=== PATIENT | male | born 1990 | race Hispanic/Latino ===

== ENCOUNTER 2022-11-02 10:23 | Emergency (ER) | payer BC, OTHER ==
--- OUTSIDE RECORDS SUMMARY | 2022-11-02 10:47 | XMS REPORT | Continuity of Care Document ---
:1990 Author Organization [facility] Address [address] [place] [place] [address] Care Team Providers Name Role Phone Claudio Castillo MD Primary Care Physician SALEEM DONALD Attending Clinician Unavailable Harriett Fan Attending Clinician Unavailable Nadeen Goldman MD Attending Clinician Saleem Donald MD Attending Clinician Unavailable NADEEN GOLDMAN Attending Clinician Unavailable Patti Benitez RN Attending Clinician Unavailable Rossana Palmer Attending Clinician Unavailable [email or web address]In Attending Clinician Unavailable Mary Oates Attending Clinician Unavailable Roxane Colby RN Attending Clinician Unavailable Saleem Donald MD Attending Clinician Marisabel Garcia Attending Clinician Unavailable PRINCESS BECKWITH Attending Clinician Unavailable PRINCESS BECKWITH Attending Clinician Unavailable Princess Beckwith MD Attending Clinician Luis E Harrison MD Attending Clinician Reynaldo PACK, Jeremiah Martini Attending Clinician Ayanna PYLE, Rosi Attending Clinician Unavailable Saurabh PYLE, Anabella Attending Clinician Unavailable Francisco Javier PYLE, Priscilla Attending Clinician Unavailable Maximo CRUZ, Zulema Acevedo Attending Clinician ZULEMA MARSH Attending Clinician Unavailable Taniya PYLE, Niharika Attending Clinician Unavailable Cecilio PYLE, Sangeeta Reyes Attending Clinician Unavailable Angie PYLE, Mo Wilson Attending Clinician Unavailable Natalie Reeder MA Attending Clinician Unavailable Lapin_S Attending Clinician Unavailable Marisela FOLEY, Jeremiah Lackey Attending Clinician Yenifer Bustillos Attending Clinician Unavailable KWASI SWAN Attending Clinician Unavailable SHA ALFONSO Attending Clinician Unavailable TAYLOR SHAH Attending Clinician Unavailable SALEEM DONALD Admitting Clinician Unavailable [email or web address]In Admitting Clinician Unavailable PRINCESS BECKWITH Admitting Clinician Unavailable Lapin_S Admitting Clinician Unavailable Payers Payer Name Policy Type Policy Number Effective Date Expiration Date S cash AETNA HMO POS QPOS [id number] 2012 2018 00:00:00 00:00:00 [facility] [id number] 2014 PLAN 00:00:00 BCBS PPO POS EPO [id number] 2020 CHOICE 00:00:00 COVID VACCINE [id number] 2020-11-02 ADMIN / TESTING 00:00:00 [place] [id number] 2021-10-01 [place] (PPO) 00:00:00 OUT OF STATE BCBS [id number] - PPO - BCBS COMMUNITY PLAN [id number] 2015-10-01 [facility] 00:00:00 CVCP-BCBS [id number] GENERIC PPO - [id number] 2020-11-02 GENERIC PAYOR 00:00:00 OPEN ACCESS [id number] 2012-01-30 2018 HMO/POS/EPO/PPO - 00:00:00 00:00:00 AETNA STAR - AMERIGROUP [id number] [place] [id number] 2021-10-01 (PPO) 00:00:00 [place] [id number] 2020-07-08 00:00:00 Problems Condition Condition Condition Status Onset Resolution Last Treating Co mments Source Name Details Category Date Date Treatment Clinician Date History of History of Problem Active 2021-10 [facility] surgically Surgically 0-11 Me dical corrected 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 Active [facility] orthotopic orthotopic 05-19 [facility] heart heart 00:00: Medical transplant transplant 00 Ce nter Transplant Transplant Disease Active [facility] ed heart ed heart 01-02 [facility] Medical 00 Blain Gilbert Gilbert Disease Active 2020-[address] [facility] syndrome syndrome 0 [facility] 00:[facility]: Medical 00 Blain Kidney Kidney Problem Active [facility] 06-02 [facility] 00:00: Urology 00 Ureteric Ureteric Problem Active [place] [facility] 06-02 [facility] 00:00: Urology 00 Transplant Transplant Problem Active [place] [facility] of 06[facility]02 [facility] heart Heart 00:00: Urology 00 Hyperbilir Hyperbilir Disease Active [facility] ubinemia ubinemia 10-22 [facility] 00:00: Medical 00 [place] Abnormal Abnormal Disease Active [facility] liver liver 05-08 [facility] enzymes enzymes 00:00: Medical 00 [place]ain Moderate Moderate Disease Active [facility] protein-ca protein-ca 05-08 [facility] vida mcpherson 00:00: Medical malnutriti malnutriti 00 Ce nter on on Immunity Immunity Disease [facility] status status 05[facility] testing testing 00:00: Medical 00 Blain Heart Heart Disease Active 2017-[address] [facility] transplant transplant 2 [facility] status status 00:00: Medical 00 Blain Multiple Multiple Disease Active [facility] morales 3-05 [facility] 00:00: of 00 Medicin e Sinusitis, Sinusitis, Disease Active 2016-10 [facility] chronic chronic 1-07 College 00:00: of 00 Medicin e S/P S/P Disease Active 2016-10 [facility] orthotopic orthotopic 1-07 Co llege heart heart 00:00: of transplant transplant 00 Me dicin e Heart Heart Disease Active [facility] transplant transplant 4-25 [facility] complicati complicati 00:00: Me dical on on 00 Center Complicati Complicati Disease Active [facility] ons, ons, 3-10 [facility] heart, heart, 00:00: Medical transplant transplant 00 Ce nter H/O heart H/O heart Disease Active 2015-[address] [facility] transplant transplant 2-29 [facility] 00:00: Medical 00 Center Pneumothor Pneumothor Disease Active 2015-[address] ax ax 2-12 [facility] 00[facility] Medical 00 Center Acute Acute Disease Active 2015-[address] [facility] pulmonary pulmonary 2- [facility] insufficie insufficie 00:00: Ma dical ncy ncy 00 Center following following thoracic thoracic surgery surgery Heart Heart Disease Active 2015-[address] [facility] transplant transplant 2- [facility] , , 00:00: Medical orthotopic orthotopic 00 Ce nter , status , status Metabolic Metabolic Disease Active 2015-[address] [facility] acidosis acidosis 2-02 [facility] with with 00:00: Medical increased increased 00 Cent er anion gap anion gap and and accumulati accumulati on of on of organic organic acids acids Hypotensio Hypotensio Disease Active 2015-[address] n n 1-09 [facility] 00:[facility]: Medical 00 Center Atrial Atrial Disease Active 2015-[address] [facility] [address] fibrillati fibrillati 1-09 [facility] on with on with 00:00: Medical RVR RVR 00 Center Hypertroph Hypertroph Disease Active 2015-[address] ic ic 0-12 [facility] cardiomyop cardiomyop 00:00: Ma dical athy athy 00 Center Deonte-Park Deonte-Park Disease Active 2015-[address] inson-Whit inson-Whit 0-12 [facility] e (WPW) e (WPW) 00:00: Medical syndrome syndrome 00 Center Chronic Chronic Disease Active 2015-[address] [facility] combined combined 0-12 [facility] systolic systolic 00:00: Medica l (congestiv (congestiv 00 Ce nter e) and e) and diastolic diastolic (congestiv (congestiv e) heart e) heart failure failure Skin Skin Disease Active [facility] infection infection 9- [facility] 00:00: Medical 00 Center Danon Danon Disease Active [facility] disease disease 06-01 [facility] 00:[facility]: Medical 00 Center Myopathy Myopathy Disease [facility] associated associated 06-01 [facility] with Danon with Danon 00:00: Me dical disease disease 00 Center CHF CHF Disease Active [facility] (congestiv (congestiv 01-05 Co llege e heart e heart 00:00: of failure) failure) 00 Medici n (HCCode) (HCCode) e Danon Danon Disease Active [facility] disease disease 01-05 College (HCCode) (HCCode) 00:00: of 00 Medicin e Danon Danon Disease Active Last [facility] disease in disease in 12-30 Assessmen Aura male male 00:00: t & Plan: Medical 00 Formattin Center g of this note might be different from the original. 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 Continue follow up with genetics. We will obtain records from Dr. Tran office. AICD AICD Disease Active [facility] (automatic (automatic 3-30 [facility] cardiovert cardiovert 00:00: Me dical er/defibri er/defibri 00 Ce nter llator) llator) present - present - Medtronic Medtronic Chronic Chronic Disease Active [facility] systolic systolic 6-11 [facility] heart heart 00:00: Medical failure failure 00 Center Seizure Seizure Disease Active [facility] 7-22 [facility] 00:[facility]: Medical 00 Center Intellectu Intellectu Disease Active [facility] al al 9-20 [facility] disability disability 00:00: Me dical 00 Center Childhood Childhood Disease Active [facility] failure to failure to 2-27 [facility] gain gain 00:00: Medical weight weight 00 Center Left Left Disease Active [facility] ventricula ventricula [facility] r r Medical hypertroph hypertroph Ce nter y y Left Left Disease Active [facility] ventricula ventricula [facility] r r Medical non-compac non-compac Ce nter tion tion cardiomyop cardiomyop athy athy Allergies, Adverse Reactions, Alerts Allergy Allergy Status Severity Reaction(s) Onset Inactive Treating Comm ents Source Name Type Date Date Clinician NO KNOWN Allergy Active [facility] ALLERGIE 3-23 [facility] S 00:00: Medical 00 Center NO KNOWN Allergy Active [facility] DRUG 3-23 [facility] ALLERGIE 00:00: Medical S 00 Center Social History Social Habit Start Date Stop Date Quantity Comments Source Alcohol intake 2022-10-26 2022-10-[address] [facility] Hannah es 00:00:00 00:00:00 non-drinker of Medical nter alcohol (finding) History [facility] 2022-04-24 2022-04-24 7 [facility] Physical Activity 00:00:00 00:00:00 of Medi cine DPW History [facility] 2022-04-24 2022-04-24 98 [facility] Physical Activity 00:00:00 00:00:00 of Medi cine MPS Tobacco use and 2014-07-30 2014-07-[address] [facility] exposure 00:00:00 00:00:00 Medical Center Sex Assigned At [address] [facility] 00:00:00 00:00:00 Medical Center Smoking Status Start Date Stop Date Source Tobacco smoking consumption unknown [facility] Never smoker [facility] Medications Ordered Filled Start Stop Current Ordering Indication Dosage Frequency Signature Comments Components Source Medication Medication Date Date Medication? Clinician (SIG) Name Name ivabradine Yes 5mg Q.5D Take 1 [facility] (CORLANOR) 10-26 tablet (5 [facility] 5 mg Tab 00:00: mg total) Medi halima tablet 00 by mouth 2 Center (two) times daily. aspirin 81 2023- Yes 81mg QD Take [address] [facility] MG chewable 10-26 tablet (81 L ukes tablet 00:00: 23:59 mg total) Medic al 00 :00 by mouth Center daily. ezetimibe 2023- Yes 10mg QD Take 1 [facility] (Zetia) 10 10-26 tablet (10 [facility] mg tablet 00:00: 23:59 mg total) Me dical 00 :00 by mouth Center daily. metoprolol 2021-10- Yes 25mg QD Take [address] [facility] succinate 1-15 11-15 tablet (25 [facility] (Toprol XL) 00:00: 23:59 mg total) Medical 25 MG 24 hr 00 :00 by mouth Cent er tablet daily. ketoconazol 2021-10 Yes [id number] 3 (three) [facility] e (NIZORAL) 10-01 [id number] times a [facility] 2 % shampoo 00:00: 3W week Medica l 00 MON/SUN/ Center I. LORazepam 2021-10- No .5mg Take 1 [facility] (Ativan) 10-0111 tablet [facility] 0.5 MG 00:00: 23:59 (0.5 mg Medical tablet 00 :00 total) by Center mouth every 6 (six) hours as needed for Anxiety for up to 10 days. Max Daily Amount: 2 mg promethazin 2021-10 Yes 5mL Take [address] e-dextromet 0-11 by mouth Luke s horphan 00:00: every 4 Medical (PROMETHAZI 00 (four) Center NE-DM) hours. 6.25-15 mg/5 mL syrup dexAMETHaso 2021-10 No Take by I [facility] ne 0-11 10-26 mouth. [facility] (DECADRON) 00:00: 00:00 Medica l 4 MG tablet 00 :00 [place] Mycophenola Yes 180mg Take 180 [facility] Sodium 9-20 mg by [place] (MYFORTIC 13:23: mouth. of OR) 51 Medicin e Multiple Yes Take by [facility] Vitamin 9-20 mouth. [place] (THERAGRAN 13:23: of OR) 51 Medicin e Sulfamethox Yes Take by [facility] azole-Trime 9-20 mouth. Colleg e thoprim 13:23: of (BACTRIM 51 Medicin OR) e tacrolimus Yes Take by [facility] or (PROGRAF) 1 9-20 mouth College MG capsule 13:23: daily. of 51 Medicin e oseltamivir Yes 75mg Take 75 mg [facility] (TAMIFLU) 9-20 by mouth Colleg e 75 MG 13:23: two times of capsule 51 daily. Medicin e mINOCYCLine 2021- No 100mg Take [address] (MINOCIN,DY 8-20 08-23 capsule [facility] NACIN) 100 00:00: 23:59 (100 mg Med ical MG capsule 00 :00 total) by Cent er mouth every 12 (twelve) hours for 3 days. mINOCYCLine 2021- No 100mg Take [address] (MINOCIN,DY 8-20 08-19 capsule [facility] NACIN) 100 00:00: 00:00 (100 mg Med ical MG capsule 00 :00 total) by Cent er mouth every 12 (twelve) hours for 3 days. aspirin 81 2021- No 81mg QD Take [address] [facility] MG chewable 815 by mouth [facility] tablet 10:52: 00:00 daily. Medical 53 :00 Center tacrolimus Yes Take by [facility] or (PROGRAF) 1 04-27 mouth College MG capsule 11:33: daily. of 59 Medicin e Mycophenola Yes 180mg Take 180 [facility] Sodium 7- mg by [place] (MYFORTIC 11:32: mouth. of OR) 38 Medicin e Multiple Yes Take by [facility] Vitamin - mouth. [place] (THERAGRAN 11:32: of OR) 38 Medicin e Sulfamethox Yes Take by [facility] azole-Trime 04-27 mouth. Colleg e thoprim 11:32: of (BACTRIM 38 Medicin OR) e oseltamivir Yes 75mg Take 75 mg [facility] (TAMIFLU) 04-27 by mouth Colleg e 75 MG 11:32: two times of capsule 38 daily. Medicin e Pseudoephed 2021- No Take by Malcolm suarez rine-Guaife 04-27 mouth. Colle ge nesin 11:32: 00:00 of (MUCINEX D 32 :00 Medicin OR) e ceFEPIme 2021- No 1g Inject 1 g [facility] (MAXIPIME) 04-27 into the Ju ege 1 G 11:31: 00:00 vein every of injection 52 :00 12 hours. Medic in e ASPIRIN 81 2021- No Take by [facility] OR 04-27 mouth. College 11:31: 00:00 of 46 :00 Medicin e diltiazem Yes 180mg Take 180 [place] [facility] (CARDIZEM 7-21 mg by [place] CD) 180 MG 00:00: mouth of ER capsule 00 daily. Medicin e diltiazem Yes 180mg Take 180 [place] [facility] (CARDIZEM 7-21 mg by [facility]) 180 MG 00:00: mouth of ER capsule 00 daily. Medicin e ENTRESTO Yes TAKE 1 [facility] 24-26 MG 7-15 TABLET BY Colleg e TABS 00:00: MOUTH of 00 TWICE A Medicin DAY e ENTRESTO Yes TAKE 1 [facility] 24-26 MG 7-15 TABLET BY Colleg e TABS 00:00: MOUTH of 00 TWICE A Medicin DAY e sacubitriL- 2021- No 1{tbl} Q.5D Take [address] valsartan 7-15 11-15 tablet by Luis Alberto s (Entresto) 00:00: 00:00 mouth 2 Med ical 24-26 mg 00 :00 (two) Center Tab times daily. tacrolimus Yes 1mg am and [facility] (PROGRAF) 1 7-08 2mg at [facility] MG capsule 00:00: night. Medic al 00 Center dilTIAZem 2021- No 180mg QD Take [address] [facility] (CARDIZEM 4-22 11-15 capsule [facility] CD) 180 MG 00:00: 00:00 (180 mg Med ical 24 hr 00 :00 total) by Center capsule mouth daily. tacrolimus 2021- No 2mg am and [facility] (PROGRAF) 1 4-22 07-08 2mg at [facility] MG capsule 00:00: 00:00 night. Medi halima 00 :00 Center dilTIAZem 2021- No 120mg QD Take [address] [facility] (DILACOR 4-15 04-22 capsule [facility] XR) 120 MG 00:00: 00:00 (120 mg Med ical 24 hr 00 :00 total) by Center capsule mouth daily. diltiazem 2021- No 120mg QD Take [address] [facility] (CARDIZEM 4-15 04-15 tablet [facility] LA) 120 mg 00:00: 00:00 (120 mg Med ical 24 hr 00 :00 total) by [place] tablet mouth daily. mycophenola 2022- No 180mg Q.5D Take [address] te 11-18-18 tablet [facility] (MYFORTIC) 00:00: 23:59 (180 mg Med ical 180 MG EC 00 :00 total) by Cente r tablet mouth 2 (two) times daily. tacrolimus 2021- No 2mg am and [facility] (PROGRAF) 1 18 04-22 3mg at [facility] MG capsule 00:00: 16:09 night. Medi halima 00 :26 Center tretinoin 2020-10 Yes [id number] Start [place] [facility] (RETIN-A) 0-15 every College 0.025 % 00:00: other of cream 00 night and Medicin increase e to nightly use as tolerated. Apply moisturize r on top. Not to be used if . clindamycin 2020-10 Yes [id number] Apply to [facility] (CLEOCIN T) 0-15 affected Ju ege 1 % lotion 00:00: area of 00 daily. Medicin e ketoconazol 2020-10 Yes [id number] Apply to [facility] e (NIZORAL) 0-15 affected Ju ege 2 % shampoo 00:00: areas of 00 3x/week. Medicin Leave on e 5-10 minutes, then rinse off. clobetasol 2020-10 Yes [id number] Apply to [facility] (TEMOVATE) 0-15 scalp College 0.05 % 00:00: 2x/day x 3 of external 00 weeks as Medicin solution needed, e then weekends only. Avoid face, groin, armpits. tretinoin 2020-10 Yes [id number] Start [place] [facility] (RETIN-A) 0-15 every College 0.025 % 00:00: other of cream 00 night and Medicin increase e to nightly use as tolerated. Apply moisturize r on top. Not to be used if . ketoconazol 2020-10 Yes [id number] Apply to [facility] e (NIZORAL) 0-15 affected Ju ege 2 % shampoo 00:00: areas of 00 3x/week. Medicin Leave on e 5-10 minutes, then rinse off. tretinoin 2020-10 Yes [id number] Start [facility] (RETIN-A) 0-15 every College 0.025 % 00:00: other of cream 00 night and Medicin increase e to nightly use as tolerated. Apply moisturize r on top. Not to be used if . ketoconazol 2020-10 Yes [id number] Apply to [facility] e (NIZORAL) 0-15 affected Ju ege 2 % shampoo 00:00: areas of 00 3x/week. Medicin Leave on e 5-10 minutes, then rinse off. clindamycin 2020-10- No [id number] Apply to [facility] (CLEOCIN T) 0-15 -28 affected Col lege 1 % lotion 00:00: 00:00 area of 00 :00 daily. Medicin e clobetasol 2020-10- No [id number] Apply to [facility] (TEMOVATE) 0- scalp College 0.05 % 00:00: 00:00 2x/day x 3 of external 00 :00 weeks as Medicin solution needed, e then weekends only. Avoid face, groin, armpits. tretinoin 2020-10- No as needed [facility] (RETIN-A) 0- . [facility] 0.025 % 00:00: 00:00 Medical cream 00 :00 Center clindamycin 2020-10- No Apply [facility] (CLEOCIN T) 0- topically [facility] 1 % lotion 00:00: 00:00 as needed M edical 00 :00 . Center ketoconazol 2020-10- No as needed [facility] e (NIZORAL) 0- . [facility] 2 % shampoo 00:00: 00:00 Medic al 00 :00 Center clobetasoL 2020-10- No Apply to [facility] (TEMOVATE) 0- scalp [facility] 0.05 % 00:00: 00:00 2x/day x 3 Medi halima external 00 :00 weeks as Center solution needed, then weekends only. Avoid face, groin, armpits. tacrolimus 2020-10- No 2mg am and [facility] (PROGRAF) 1 0-07 02-18 3mg at [facility] MG capsule 00:00: 00:00 night. Medi hlaima 00 :00 Center mycophenola 2021- No 180mg Q.5D Take [address] te 2-05 02-05 tablet [facility] (Myfortic) 00:00: 23:59 (180 mg Med ical 180 MG EC 00 :00 total) by Cente r tablet mouth 2 (two) times daily. influenza 2021- No .5mL [facility] vaccine 1-15 04-04 [facility] (PF) 08:00: 10:10 Medical 00 :26 Center (FLUAD HIGH DOSE) syringe 65 years and up alendronate 2021- No Take one [facility] (FOSAMAX) 5-08 11-15 tablet [facility] 70 MG 00:00: 00:00 70mg by Medical tablet 00 :00 mouth once Center a week. mycophenola 2021- No 180mg Q.5D Take [address] te 8-08 02-18 tablet [facility] (MYFORTIC) 00:00: 00:00 (180 mg Med ical 180 MG EC 00 :00 total) by Cente r tablet mouth 2 (two) times daily. ASPIRIN 81 2017-0 Yes Take by [facility] or OR 3-05 mouth. [place] 10:07: of 05 Medicin e Pseudoephed 2017-0 Yes Take by [facility] rine-Guaife 3-05 mouth. [place] nesin 10:07: of (MUCINEX D 05 Medicin OR) e Multiple 0 Yes Take by [facility] Vitamin 3-05 mouth. [place] (THERAGRAN 10:07: of OR) 05 Medicin e Sulfamethox 2018-0 Yes Take by [facility] azole-Trime 3-05 mouth. [place] e thoprim 10:07: of (BACTRIM 05 Medicin OR) e Tacrolimus 2018-0 Yes Take by [facility] or (PROGRAF 3-05 mouth. [place] OR) 10:07: of 05 Medicin e Mycophenola 2018-0 Yes 180mg Take 180 [facility] Sodium 1-10 mg by [place] (MYFORTIC 15:02: mouth. of OR) 19 Medicin e ceFEPIme 2018-0 Yes 1g Inject 1 g [place] [facility] (MAXIPIME) 1-10 into the Colle ge 1 G 15:02: vein every of injection 19 12 hours. Medic in e oseltamivir Yes 75mg Take 75 mg [facility] (TAMIFLU) 1-10 by mouth Colleg e 75 MG 15:02: two times of capsule 18 daily. Medicin e amoxicillin Yes 1{tbl} Take 1 Tab [facility] -clavulanat 1-10 by mouth Ju ege e 00:00: two times of (AUGMENTIN) 00 daily. Medici n 875-125 MG e per tablet predniSONE Yes 4 po qd x [facility] (DELTASONE) 1-10 3 days, Colle ge 10 MG 00:00: then 3 po of tablet 00 qd x 3 Medicin days, then e 2 po qd x 3 days, then 1 po qd x 3 days fluticasone Yes 1{spray 1 [place] by [facility] (FLONASE) 1-10 } Each [place] 50 MCG/ACT 00:00: Nostril of nasal spray 00 route Medicin daily. e fluticasone Yes 1{spray 1 [place] by [facility] (FLONASE) 1-10 } Each [place] 50 MCG/ACT 00:00: Nostril of nasal spray 00 route Medicin daily. e amoxicillin Yes 1{tbl} Take 1 Tab [facility] -clavulanat 1-10 by mouth Ju ege e 00:00: two times of (AUGMENTIN) 00 daily. Medici n 875-125 MG e per tablet amoxicillin Yes 1{tbl} Take 1 Tab [facility] -clavulanat 1-10 by mouth Ju ege e 00:00: two times of (AUGMENTIN) 00 daily. Medici n 875-125 MG e per tablet predniSONE 2- No 4 po qd x [facility] (DELTASONE) 10-10 3 days, Ju ege 10 MG 00:00: 00:00 then 3 po of tablet 00 :00 qd x 3 Medicin days, then e 2 po qd x 3 days, then 1 po qd x 3 days fluticasone 2021- No 1{spray 1 [place] by [facility] (FLONASE) 10-10 } Each [place] 50 MCG/ACT 00:00: 00:00 Nostril of nasal spray 00 :00 route Medicin daily. e fluticasone 2021- No 1{spray 1 [place] by [facility] (FLONASE) 10-10 } Each College 50 MCG/ACT 00:00: 00:00 Nostril of nasal spray 00 :00 route Medicin daily. e dexamethaso dexamethaso No dexamethas [facility] ne 4 mg ne 4 mg one 4 mg Medic al tablet Take tablet Take tablet 2 tablets 2 tablets Take 2 on first on first tablets on day then 1 day then 1 first day tablet tablet then 1 daily daily tablet daily Ent[facility] 24 Entresto 24 No 1 Q1D Entresto [facility] mg-26 mg mg-26 mg 24 mg-26 Med ical tablet Take tablet Take mg tablet 1 tablet 1 tablet Take 1 every day every day tablet by oral by oral every day route. route. by oral route. promethazin promethazin No 5mL Q4H promethazi [facility] e-DM 6.25 e-DM 6.25 ne-DM 6.25 Medical mg-15 mg/5 mg-15 mg/5 mg-15 mg/5 mL oral mL oral mL oral syrup Take syrup Take syrup Take 5 mL every 5 mL every 5 mL every 4 hours by 4 hours by 4 hours by oral route. oral route. oral route. tacrolimus tacrolimus No tacrolimus [facility] Medical azithromyci azithromyci No azithromyc [facility] n 250 mg n 250 mg in 250 mg Me dical tablet TAKE tablet TAKE tablet 2 TABLETS 2 TABLETS TAKE 2 (500 MG) BY (500 MG) BY TABLETS ORAL ROUTE ORAL ROUTE (500 MG) ONCE DAILY ONCE DAILY BY ORAL FOR 1 DAY FOR 1 DAY ROUTE ONCE THEN 1 THEN 1 DAILY FOR TABLET (250 TABLET (250 1 DAY THEN MG) BY ORAL MG) BY ORAL 1 TABLET ROUTE ONCE ROUTE ONCE (250 MG) DAILY FOR 4 DAILY FOR 4 BY ORAL DAYS DAYS ROUTE ONCE DAILY FOR 4 DAYS fluticasone fluticasone No 1spray( Q1D fluticason [facility] propionate propionate s) e Med ical 50 50 propionate mcg/actuati mcg/actuati 50 on nasal on nasal mcg/actuat spray,suspe spray,suspe ion nasal nsion [place] nsion [place] spray,susp 1 spray 1 spray ension every day every day [place] 1 by by spray intranasal intranasal every day route. route. by intranasal route. tacrolimus tacrolimus No tacrolimus [place] 1 mg 1 mg 1 mg [facility] capsule, capsule, capsule, Uro logy immediate-r immediate-r immediate- elease elease release albuterol albuterol No albuterol [place] sulfate HFA sulfate HFA sulfate [facility] 90 90 HFA 90 Urology mcg/actuati mcg/actuati mcg/actuat on aerosol on aerosol ion inhaler inhaler aerosol INHALE 1-2 INHALE 1-2 inhaler PUFFS EVERY PUFFS EVERY INHALE 1-2 6 HOURS 6 HOURS PUFFS NEEDED FOR NEEDED FOR EVERY 6 WHEEZING OR WHEEZING OR HOURS DIFFICULTY DIFFICULTY NEEDED FOR BREATHING BREATHING WHEEZING OR DIFFICULTY BREATHING metoprolol metoprolol No 1 Q1D metoprolol [facility] succinate succinate succinate Medical ER 25 mg ER 25 mg ER 25 mg tablet,exte tablet,exte tablet,ext nded nded ended release 24 release 24 release 24 hr Take 1 hr Take 1 hr Take 1 tablet tablet tablet every day every day every day by oral by oral by oral route. route. route. famotidine famotidine No famotidine [place] 20 mg 20 mg 20 mg [facility] tablet TAKE tablet TAKE tablet Urology 1 TABLET BY 1 TABLET BY TAKE 1 MOUTH EVERY MOUTH EVERY TABLET BY 12 HOURS 12 HOURS MOUTH FOR 14 DAYS FOR 14 DAYS EVERY 12 HOURS FOR 14 DAYS mycophenola mycophenola No 1 BID mycophenol [facility] te sodium te sodium ate sodium Medical 180 mg 180 mg 180 mg tablet,codi tablet,codi tablet,del yed release yed release ayed Take 1 Take 1 release tablet tablet Take 1 twice a day twice a day tablet by oral by oral twice a route. route. day by oral route. ivermectin ivermectin No ivermectin [place] 3 mg tablet 3 mg tablet 3 mg M etro TAKE 4 TAKE 4 tablet Urology TABLETS BY TABLETS BY TAKE 4 MOUTH ON MOUTH ON TABLETS BY DAYS 1, 3, DAYS 1, 3, MOUTH ON AND 5. AND 5. DAYS 1, 3, AND 5. ketoconazol ketoconazol No ketoconazo Dominguez e 2 % e 2 % le 2 % [facility] shampoo shampoo shampoo Urolog y APPLY TO APPLY TO APPLY TO AFFECTED AFFECTED AFFECTED AREAS AREAS AREAS 3X/WEEK. 3X/WEEK. 3X/WEEK. LEAVE ON LEAVE ON LEAVE ON 5-10 5-10 5-10 MINUTES, MINUTES, MINUTES, THEN RINSE THEN RINSE THEN RINSE OFF. OFF. OFF. montelukast montelukast No montelukas [place] 10 mg 10 mg t 10 mg [facility] tablet TAKE tablet TAKE tablet Urology 1 TABLET BY 1 TABLET BY TAKE 1 MOUTH EVERY MOUTH EVERY TABLET BY EVENING EVENING MOUTH EVERY EVENING promethazin promethazin No 5mL Q4H promethazi [facility] e-DM 6.25 e-DM 6.25 ne-DM 6.25 Medical mg-15 mg/5 mg-15 mg/5 mg-15 mg/5 mL oral mL oral mL oral syrup Take syrup Take syrup Take 5 mL every 5 mL every 5 mL every 4 hours by 4 hours by 4 hours by oral route. oral route. oral route. mycophenola mycophenola No mycophenol [place] te sodium te sodium ate sodium [facility] 180 mg 180 mg 180 mg Urology tablet,codi tablet,codi tablet,del yed release yed release ayed release tacrolimus tacrolimus No tacrolimus [facility] Medical sucralfate sucralfate No sucralfate [place] 1 gram 1 gram 1 gram [facility] tablet TAKE tablet TAKE tablet Urology 1 TABLET BY 1 TABLET BY TAKE 1 MOUTH FOUR MOUTH FOUR TABLET BY TIMES A DAY TIMES A DAY MOUTH FOUR 1 HOUR 1 HOUR TIMES A BEFORE BEFORE DAY 1 HOUR MEALS AND MEALS AND BEFORE AT BEDTIME. AT BEDTIME. MEALS AND AT BEDTIME. tacrolimus tacrolimus No tacrolimus [place] 1 mg 1 mg 1 mg [facility] capsule, capsule, capsule, Uro logy immediate-r immediate-r immediate- elease elease release tretinoin tretinoin No tretinoin [place] 0.025 % 0.025 % 0.025 % [facility] topical topical topical Urolog y cream START cream START cream EVERY OTHER EVERY OTHER START NIGHT AND NIGHT AND EVERY INCREASE TO INCREASE TO OTHER NIGHTLY USE NIGHTLY USE NIGHT AND INCREASE TOLERATED. TOLERATED. TO NIGHTLY APPLY APPLY USE MOISTURIZER MOISTURIZER TOLERATED. ON TOP ON TOP APPLY MOISTURIZE R ON TOP Immunizations Ordered Immunization Filled Immunization Date Status Commen ts Source Name Name COVID-19, mRNA, LNP-S, COVID-19, mRNA, 2020-11-20 Completed [facility] Medical PF, 30 mcg/0.3 mL dose LNP-S, PF, 30 00:00:00 (Kigo) mcg/0.3 mL dose (Pfizer-BioNTech) COVID-19, mRNA, LNP-S, COVID-19, mRNA, 2020-11-20 Completed [facility] PF, 30 mcg/0.3 mL dose LNP-S, PF, 30 00:00:00 (Pfizer-BioNTech) mcg/0.3 mL dose (Pfizer-BioNTech) Covid-19 Vaccine MRNA 2020-11-20 Completed [facility] (PF) 12yr+ 00:00:00 [facility] (Pfizer/BioNTech)(IMM6 ) COVID-19, mRNA, LNP-S, COVID-19, mRNA, 2020-11-20 Completed [facility] PF, 30 mcg/0.3 mL dose LNP-S, PF, 30 00:00:00 Urology (Pfizer-BioNTech) mcg/0.3 mL dose (Pfizer-BioNTech) COVID-19, mRNA, LNP-S, COVID-19, mRNA, 2020-11-10 Completed [facility] PF, 30 mcg/0.3 mL dose LNP-S, PF, 30 00:00:00 Urology mcg/0.3 mL dose COVID-19, mRNA, LNP-S, COVID-19, mRNA, 2020-11-02 Completed [facility] PF, 30 mcg/0.3 mL dose LNP-S, PF, 30 00:00:00 Urology (Pfizer-BioNTech) mcg/0.3 mL dose (Pfizer-BioNTech) Covid-19 Vaccine MRNA 2020-11-02 Completed [facility] (PF) 12yr+ 00:00:00 [facility] (Pfizer/BioNTech)(IMM6 ) COVID-19, mRNA, LNP-S, COVID-19, mRNA, 2020-11-02 Completed [facility] PF, 30 mcg/0.3 mL dose LNP-S, PF, 30 00:00:00 (Pfizer-BioNTech) mcg/0.3 mL dose (Pfizer-BioNTech) COVID-19, mRNA, LNP-S, COVID-19, mRNA, 2020-11-02 Completed [facility] PF, 30 mcg/0.3 mL dose LNP-S, PF, 30 00:00:00 (Pfizer-BioNTech) mcg/0.3 mL dose (tab [employer]broker-[employer]ass[employer]!) COVID-19, mRNA, LNP-S, COVID-19, mRNA, 2020-10-20 Completed [facility] PF, 30 mcg/0.3 mL dose LNP-S, PF, 30 00:00:00 Urology mcg/0.3 mL dose Covid-19 Vaccine MRNA 2020-10-[address] [facility] (PF) 12yr+ 00:00:00 Medical Center (Pfizer/BioNTech)(IMM6 ) influenza, injectable, influenza, 2020-07-01 Completed [facility] quadrivalent injectable, 00:00:00 Urology quadrivalent influenza, injectable, influenza, 2020-07-01 Completed [facility] quadrivalent injectable, 00:00:00 Urology quadrivalent INFLUENZA TRIVALENT 2019-09-16 [address] [facility] ADJUVANTED PF IM 00:00:00 [facility] Pneumococcal 2019-09-[address] [facility] Polysaccharide 00:00:00 Medical Ce nter (Pneumovax) Influenza High Dose 2018-09-13 Completed [facility] Preservative Free IM 00:00:00 [facility] ([id number]) Influenza High Dose 2017-07-12 Completed [facility] Preservative Free IM 00:00:00 [facility] ([id number]) Pneumococcal Conjugate 2017-02-[address] [facility] (Prevnar) 13-Valent 00:00:00 [facility] Influenza Three-TIV PF 2016-07-[address] [facility] 5+ YR 00:00:00 [facility] Pneumococcal 2014-09-[address] [facility] Polysaccharide 00:00:00 Medical Ce nter (Pneumovax) Influenza TIV (IM) 2014-07-[address] [facility] 00:00:00 [facility] Vital Signs Vital Name Observation Time Observation Value Comments Source HEIGHT 2020-11-10 09:42:00 175.3 cm WEIGHT 2020-11-10 09:42:00 51.12 kg HEIGHT 2022-10-26 10:22:00 177.2 cm WEIGHT 2022-10-26 10:22:00 54.522 kg HEIGHT 2022-10-26 10:22:00 177.2 cm WEIGHT 2022-10-26 10:22:00 54.522 kg HEIGHT 2022-10-26 10:22:00 177.2 cm WEIGHT 2022-10-26 10:22:00 54.522 kg BP Diastolic 2022-08-28 00:00:00 60 mm[Hg] [facility] Height 2022-08-28 00:00:00 69 [in_i] [facility] BMI (Body Mass Index) 2022-08-28 00:00:00 17.8 kg/m2 [facility] BP Systolic 2022-08-28 00:00:00 96 mm[Hg] [facility] Body Weight 2022-08-28 00:00:00 1924 [oz_av] [facility] WEIGHT 2022-08-15 09:48:00 54.84 kg WEIGHT 2022-08-15 09:48:00 54.84 kg WEIGHT 2022-08-15 09:48:00 54.84 kg BP Diastolic 2022-07-11 00:00:00 74 mm[Hg] [facility] Height 2022-07-11 00:00:00 69 [in_i] [facility] BMI (Body Mass Index) 2022-07-11 00:00:00 17 kg/m2 [facility] BP Systolic 2022-07-11 00:00:00 98 mm[Hg] [facility] Body Weight 2022-07-11 00:00:00 1840 [oz_av] [facility] Systolic blood 2022-06-20 18:30:00 76 mm[Hg] [facility] pressure Medicine Diastolic blood 2022-06-20 18:30:00 60 mm[Hg] [facility] pressure Medicine BMI 2022-06-20 18:23:00 16.98 kg/m2 [facility] Heart rate 2022-06-20 18:23:00 101 /min [facility] Body height 2022-06-20 18:23:00 175.3 cm [facility] Body weight 2022-06-20 18:23:00 52.164 kg [facility] HEIGHT 2022-05-19 06:37:00 175.3 cm WEIGHT 2022-05-19 06:37:00 51.801 kg HEIGHT 2022-05-04 15:35:00 175.3 cm WEIGHT 2022-05-04 15:35:00 52.617 kg HEIGHT 2022-05-19 06:37:00 175.3 cm WEIGHT 2022-05-19 06:37:00 51.801 kg HEIGHT 2022-05-04 15:35:00 175.3 cm WEIGHT 2022-05-04 15:35:00 52.617 kg HEIGHT 2022-05-19 06:37:00 175.3 cm WEIGHT 2022-05-19 06:37:00 51.801 kg HEIGHT 2022-05-04 15:35:00 175.3 cm WEIGHT 2022-05-04 15:35:00 52.617 kg HEIGHT 2022-05-15 10:42:00 175.3 cm WEIGHT 2022-05-15 10:42:00 52.254 kg HEIGHT 2022-05-15 10:42:00 175.3 cm WEIGHT 2022-05-15 10:42:00 52.254 kg HEIGHT 2022-05-15 10:42:00 175.3 cm WEIGHT 2022-05-15 10:42:00 52.254 kg Systolic blood 2022-04-27 16:36:00 90 mm[Hg] [facility] pressure Medicine Diastolic blood 2022-04-27 16:36:00 68 mm[Hg] [facility] pressure Medicine Heart rate 2022-04-27 16:29:00 102 /min [facility] Body height 2022-04-27 16:29:00 [facility] 2022-04-27 16:29:00 [facility].617 [facility] BMI 2022-04-27 16:29:00 17.13 kg/m2 [facility] WEIGHT 2022-04-07 08:52:00 53.797 kg WEIGHT 2022-04-07 08:52:00 53.797 kg WEIGHT 2022-04-07 08:52:00 53.797 kg WEIGHT 2022-03-10 11:34:00 52.345 kg WEIGHT 2022-03-10 11:34:00 52.345 kg WEIGHT 2022-03-10 11:34:00 52.345 kg HEIGHT 2022-01-20 10:45:00 175.3 cm WEIGHT 2022-01-20 10:45:00 53.751 kg HEIGHT 2022-01-20 10:45:00 175.3 cm WEIGHT 2022-01-20 10:45:00 53.751 kg HEIGHT 2022-01-20 10:45:00 175.3 cm WEIGHT 2022-01-20 10:45:00 53.751 kg HEIGHT 2022-01-02 09:36:00 175.3 cm WEIGHT 2022-01-02 09:36:00 52.617 kg HEIGHT 2022-01-02 09:36:00 175.3 cm WEIGHT 2022-01-02 09:36:00 52.617 kg HEIGHT 2022-01-02 09:36:00 175.3 cm WEIGHT 2022-01-02 09:36:00 52.617 kg HEIGHT 2021-12-30 11:00:00 175.3 cm WEIGHT 2021-12-30 11:00:00 53.524 kg HEIGHT 2021-12-30 11:00:00 175.3 cm WEIGHT 2021-12-30 11:00:00 53.524 kg HEIGHT 2021-12-30 11:00:00 175.3 cm WEIGHT 2021-12-30 11:00:00 53.524 kg Height 2021-12-08 00:00:00 69 [in_i] [facility] Urology BMI (Body Mass Index) 2021-12-08 00:00:00 16.8 kg/m2 [facility] Urology Body Weight 2021-12-08 00:00:00 114 [lb_av] [facility] Urology WEIGHT 2021-07-22 11:14:00 52.527 kg WEIGHT 2021-07-22 11:14:00 52.527 kg Systolic blood 2021-07-15 18:48:00 118 mm[Hg] [facility] pressure Medicine Diastolic blood 2021-07-15 18:48:00 82 mm[Hg] [facility] pressure Medicine Heart rate 2021-07-15 18:48:00 77 /min [facility] Body height 2021-07-15 18:48:00 175.3 cm [facility] Body weight 2021-07-15 18:48:00 51.71 kg [facility] BMI 2021-07-15 18:48:00 16.83 kg/m2 [facility] Height 2021-06-02 00:00:00 69 [in_i] [facility] Urolog BMI (Body Mass Index) 2021-06-02 00:00:00 17 kg/m2 [facility] Body Weight 2021-06-02 00:00:00 115 [facility]lb_av[facility] 2021-04-15 12:11:00 50.758 kg WEIGHT 2021-04-15 12:11:00 50.758 kg WEIGHT 2021-01-14 11:27:00 53.162 kg WEIGHT 2021-01-14 11:27:00 53.162 kg HEIGHT 2020-11-10 09:42:00 175.3 cm WEIGHT 2020-11-10 09:42:00 51.12 kg HEIGHT 2020-11-09 10:18:00 175.3 cm WEIGHT 2020-11-09 10:18:00 52.164 kg HEIGHT 2020-11-09 10:18:00 175.3 cm WEIGHT 2020-11-09 10:18:00 52.164 kg Systolic blood 2022-10-26 10:22:00 104 mm[Hg] [facility] Diastolic blood 2022-10-26 10:22:00 72 mm[Hg] [facility] Heart rate 2022-10-26 10:22:00 113 /min [facility] Body temperature 2022-10-26 10:22:00 36.61 Jackelyn [facility] Respiratory rate 2022-10-26 10:22:00 14 /min [facility] Body height 2022-10-26 10:22:00 177.2 cm actual [facility] Body weight 2022-10-26 10:22:00 54.522 kg [facility] BMI 2022-10-26 10:22:00 17.37 kg/m2 [facility] Oxygen saturation in 2022-10-26 10:22:00 99 /min [facility] Arterial blood by Medical Ce nter Pulse oximetry Procedures Procedure Date / Time Performing Clinician Source Performed AB SPECIFICITY CLASS II 2022-10-26 12:15:00 Nadeen Goldman [facility] HEPATIC FUNCTION PANEL 2022-10-26 12:15:00 Nadeen Goldman [facility] AB SPECIFICITY CLASS I 2022-10-26 12:15:00 Nadeen Goldman [facility] FLOW PRA CLASS I WITH 2022-10-26 12:15:00 Nadeen Goldman [facility] REFLEX TO ANTIBODY Medical Cente r SPECIFICITY FLOW PRA CLASS II WITH 2022-10-26 12:15:00 Nadeen Goldmanvanda [facility] REFLEX TO ANTIBODY Medical Cente r SPECIFICITY AB DONOR SPECIFIC, DSA 2022-10-26 12:15:00 Nadeen Goldman [facility] ECG 12-LEAD 2022-10-26 12:11:44 Nadeen Goldman [facility] ECG 12-LEAD 2022-10-26 12:11:44 Unknown, Hl7 Doctor [facility] CBC W/PLT COUNT & AUTO 2022-10-26 10:58:00 Saleem Donald [facility] BASIC METABOLIC PANEL 2022-10-26 10:58:00 Kevin Harrington [facility] TACROLIMUS LEVEL 2022-10-26 10:58:00 Saleem Donald [facility] B-TYPE NATRIURETIC FACTOR 2022-10-26 10:58:00 Saleem Donald [facility] (BNP) [facility] CBC W/PLT COUNT & AUTO 2022-10-26 10:58:00 Saleem Donald [facility] CBC W/PLT COUNT & AUTO 2022-08-15 09:54:00 Saleem Donald [facility] TACROLIMUS LEVEL 2022-08-15 09:54:00 Saleem Donald [facility] COMPREHENSIVE METABOLIC 2022-08-15 09:54:00 Saleem Donald [facility] CBC W/PLT COUNT & AUTO 2022-08-15 09:54:00 Saleem Donald [facility] MR CARDIAC WITHOUT & WITH 2022-08-04 11:59:00 Saleem Donald CH, I [facility] IV CONTRAST Medical Center XR CHEST 2 VIEWS 2022-07-25 10:21:00 Jacek Navarro [facility] ELECTROCARDIOGRAM COMPLETE 2022-06-20 13:24:00 Wolfgang [facility] ECG 12-LEAD 2022-05-19 12:10:17 [facility] ECG 12-LEAD 2022-05-19 12:10:17 Unknown, Hl7 Doctor [facility] PREPARE RBC 2022-05-19 10:13:00 Matt [facility] EXTRACTION, ELECTRODE LEAD, 2022-05-19 07:34:00 Matt [facility] REMOVAL, PULSE GENERATOR, 2022-05-19 07:34:00 Princess Beckwith [facility] TYPE AND SCREEN, AUTOMATED 2022-05-19 07:00:00 [facility] POCT-GLUCOSE METER 2022-05-19 06:01:00 Matt [facility] AB SPECIFICITY CLASS I 2022-05-15 11:05:00 Saleem Donald [facility] AB SPECIFICITY CLASS II 2022-05-15 11:05:00 Saleem Donald [facility] BASIC METABOLIC PANEL 2022-05-15 11:05:00 Matt [facility] CBC W/PLT COUNT & AUTO 2022-05-15 11:05:00 Matt [facility] PROTHROMBIN TIME/INR 2022-05-15 11:05:00 Matt [facility] FLOW PRA CLASS I WITH 2022-05-15 11:05:00 Saleem Donald [facility] REFLEX TO ANTIBODY Medical Cente r SPECIFICITY FLOW PRA CLASS II WITH 2022-05-15 11:05:00 Donald, Saleem Mcdermott [facility] REFLEX TO ANTIBODY Medical Cente r SPECIFICITY AB DONOR SPECIFIC, DSA 2022-05-15 11:05:00 Donald, Saleem Mcdermott [facility] CBC W/PLT COUNT & AUTO 2022-05-15 11:05:00 Treasure [facility] COVID ANTIGEN 2022-05-15 10:56:00 Treasure [facility] ELECTROCARDIOGRAM COMPLETE 2022-04-27 11:36:00 B [facility] CBC W/PLT COUNT & AUTO 2022-04-21 10:36:00 Donald, Saleem Mcdermott [facility] TACROLIMUS LEVEL 2022-04-21 10:36:00 Donald, Saleem Mcdermott [facility] COMPREHENSIVE METABOLIC 2022-04-21 10:36:00 Donald, Saleem Mcdermott [facility] MAGNESIUM 2022-04-21 10:36:00 Donald, Saleem Mcdermott [facility] CBC W/PLT COUNT & AUTO 2022-04-21 10:36:00 Donald, Asleemsisi Mcdermott [facility] 2D ECHO W/ DOPPLER 2022-04-07 09:46:52 Carolin, Saleem Mcdermott [facility] (CW/PW/COLOR) [facility] VENOUS DOPPLER LEGS 2022-04-07 09:23:00 Donald, Saleem Mcdermott [facility] CBC W/PLT COUNT & AUTO 2022-04-07 08:51:00 Donald, Saleem Mcdermott [facility] BASIC METABOLIC PANEL 2022-04-07 08:51:00 Donald, Saleem Mcdermott [facility] TACROLIMUS LEVEL 2022-04-07 08:51:00 Donald, [facility] Sharron [facility] CBC W/PLT COUNT & AUTO 2022-04-07 08:51:00 Donald, [facility] Sharron [facility] ECG 12-LEAD 2022-03-10 11:56:51 Zulema Marsh [facility] ECG 12-LEAD 2022-03-10 11:56:51 Unknown, Hl7 [facility] CBC W/PLT COUNT & AUTO 2022-03-10 11:34:00 Donald, Saleem Mcdermott [facility] BASIC METABOLIC PANEL 2022-03-10 11:34:00 Donald, Saleem Mcdermott [facility] TACROLIMUS LEVEL 2022-03-10 11:34:00 Donald, Saleem Mcdermott [facility] CBC W/PLT COUNT & AUTO 2022-03-10 11:34:00 Donald, Saleem Mcdermott [facility] TACROLIMUS 2022-02-03 10:23:00 Donald, Saleem Mcdermott [facility] COMPREHENSIVE METABOLIC 2022-02-03 10:22:00 Donald, Saleem Mcdermott [facility] CBC W/PLT COUNT & AUTO 2022-02-03 10:20:00 Donald, Saleem Mcdermott [facility] ECG 12-LEAD 2022-01-20 14:31:38 Unknown, Hl7 [facility] ECG 12-LEAD 2022-01-20 14:31:38 Unknown, Hl7 [facility] CBC W/PLT COUNT & AUTO 2022-01-20 10:39:00 Donald, Saleem Mcdermott [facility] TACROLIMUS LEVEL 2022-01-20 10:39:00 Donald, Saleem Mcdermott [facility] COMPREHENSIVE METABOLIC 2022-01-20 10:39:00 Donald, Saleem Mcdermott [facility] CBC W/PLT COUNT & AUTO 2022-01-20 10:39:00 Donald, Saleem Mcdermott [facility] R & L CATH / CORONARY 2022-01-02 14:13:00 Donald, Saleem Mcdermott [facility] ANGIOS / PCI [facility] BIOPSY, ENDOMYOCARDIUM 2022-01-02 14:13:00 Donald, Saleem Mcdermott [facility] TISSUE EXAM 2022-01-02 14:09:00 Donald, Saleem Mcdermott [facility] ECG 12-LEAD 2022-01-02 10:37:19 Unknown, Hl7 Doctor [facility] ECG 12-LEAD 2022-01-02 10:37:19 Unknown, Hl7 Doctor [facility] TACROLIMUS LEVEL 2022-01-02 10:19:00 Donald, Saleem Mcdermott [facility] CARDIAC CATH REPORT - SCAN 2022-01-02 00:00:00 Provider, [facility] SARS-COV2/RT-PCR ([facility] & 2021-12-30 14:14:00 Donald, Saleem Mcdermott [facility] REF LABS) [facility] CBC W/PLT COUNT & AUTO 2021-12-30 11:16:00 Donald, Saleem Mcdermott [facility] TACROLIMUS LEVEL 2021-12-30 11:16:00 Donald, Saleem Mcdermott [facility] COMPREHENSIVE METABOLIC 2021-12-30 11:16:00 Donald, Saleem Mcdermott [facility] CBC W/PLT COUNT & AUTO 2021-12-30 11:16:00 Donald, Saleem Mcdermott [facility] STRESS ECHO 2021-12-23 09:19:43 Donald, Saleem Mcdermott [facility] 2D ECHO W/ DOPPLER 2021-12-23 08:50:06 Donald, Saleem Mcdermott [facility] (CW/PW/COLOR) [facility] SARS-COV2/RT-PCR ([facility] & 2021-12-23 07:36:00 Donald, Saleem Mcdermott [facility] REF LABS) [facility] XR CHEST 2 VIEWS 2021-12-16 11:16:00 Donald, Saleem Mcdermott [facility] BASIC METABOLIC PANEL 2021-12-16 10:36:00 Donald, Saleem Mcdermott [facility] CBC W/PLT COUNT & AUTO 2021-12-16 10:36:00 Donald, Saleem Mcdermott [facility] LIPID PANEL 2021-12-16 10:36:00 Donald, Saleem Mcdermott [facility] HEPATIC FUNCTION PANEL 2021-12-16 10:36:00 Donald, Saleem P. [facility] TACROLIMUS LEVEL 2021-12-16 10:36:00 DonaldSaleem green Guero [facility] AB SPECIFICITY CLASS I 2021-12-16 10:36:00 [facility] AB SPECIFICITY CLASS II 2021-12-16 10:36:00 [facility] FLOW PRA CLASS I WITH 2021-12-16 10:36:00 [facility] REFLEX TO ANTIBODY Medical Cente r SPECIFICITY FLOW PRA CLASS II WITH 2021-12-16 10:36:00 Donald, Saleem Guero [facility] REFLEX TO ANTIBODY Medical Cente r SPECIFICITY AB DONOR SPECIFIC, DSA 2021-12-16 10:36:00 [facility] CBC W/PLT COUNT & AUTO 2021-12-16 10:36:00 Donald, [facility] XR KUB KIDNEY URETER 2021-12-08 19:32:00 Jeremiah Antonio [facility] BLADDER Plan of Care Planned Activity Planned Date Details Comments Source Future Scheduled 2057 PNEUMOCOCCAL VACCINE 0-[address] [facility] Test 00:00:00 YRS (4 - PPSV23 or PCV20) [facility] [code = PNEUMOCOCCAL VACCINE 0-64 YRS (4 - PPSV23 or PCV20)] Future Scheduled 2024-12-16 Lipid panel (procedure) [facility] Test 00:00:00 [code = 04887997] Medical Ce nter Future Scheduled 2023-10-[address] [facility] Test 00:00:00 Counseling and Screening [facility] (12+) [code = Tobacco Cessation Counseling and Screening (12+)] Future Scheduled 2022-10-[address] [facility] Test 00:00:00 (12+) [code = DEPRESSION [facility] SCREENING (12+)] Future Scheduled 2022-08-01 HEPATITIS B VACCINES (1 [facility] 00:09:17 of 3 - 3-dose series) Hospit al [code = HEPATITIS B VACCINES (1 of 3 - 3-dose series)] Future Scheduled 2022-08-01 Pneumococcal Vaccine: [facility] 00:09:17 Pediatrics (0 to 5 Years) Ho spital and At-Risk Patients (6 to 64 Years) (1 - PCV) [code = Pneumococcal Vaccine: Pediatrics (0 to 5 Years) and At-Risk Patients (6 to 64 Years) (1 - PCV)] Future Scheduled 2022-08-01 Hepatitis C screening [facility] 00:09:17 (procedure) [code = Hospital 795665141] Future Scheduled 2022-08-01 COVID-19 VACCINE (4 - [facility] 00:09:17 Booster) [code = COVID-19 Ho spital VACCINE (4 - Booster)] Future Scheduled 2022-08-01 INFLUENZA VACCINE [code = [facility] Test 00:09:17 INFLUENZA VACCINE] Hospital Future Scheduled 2022-06-20 ELECTROCARDIOGRAM [facility] Test 13:24:23 COMPLETE [code = 45338] Medi cine Future Scheduled 2022-06-20 Pneumococcal Combined (1 [facility] Test 13:23:34 - PCV) [code = Medicine Pneumococcal Combined (1 - PCV)] Future Scheduled 2022-06-20 TETANUS SHOT (ADULT) [facility] Test 13:23:34 [code = TETANUS SHOT Medicin e (ADULT)] Future Scheduled 2022-06-20 BMI FOLLOW UP PLAN [code [facility] Test 13:23:34 = BMI FOLLOW UP PLAN] Medici ne Future Scheduled 2022-06-20 Human immunodeficiency B [facility] of Test 13:23:34 virus screening Medicine (procedure) [code = 074931919] Future Scheduled 2022-06-20 FLU VACCINE > 6 MONTHS B [facility] Test 13:23:34 [code = FLU VACCINE > 6 Medi cine MONTHS] Future Scheduled 2022-06-01 INFLUENZA VACCINE (#1) [facility] 00:[facility]00 [code = INFLUENZA VACCINE Me dical Center (#1)] Future Scheduled 2022-04-27 ELECTROCARDIOGRAM [facility] Test 11:35:20 COMPLETE [code = 29908] Medi cine Future Scheduled 2022-04-27 Pneumococcal Combined (1 [facility] Test 11:31:10 - PCV) [code = Medicine Pneumococcal Combined (1 - PCV)] Future Scheduled 2022-04-27 TETANUS SHOT (ADULT) [facility] Test 11:31:10 [code = TETANUS SHOT Medicin e (ADULT)] Future Scheduled 2022-04-27 BMI FOLLOW UP PLAN [code [facility] Test 11:31:10 = BMI FOLLOW UP PLAN] Medici ne Future Scheduled 2022-04-27 Human immunodeficiency B [facility] Test 11:31:10 virus screening Medicine (procedure) [code = 809626975] Future Scheduled 2022-04-27 FLU VACCINE > 6 MONTHS B [facility] Test 11:31:10 [code = FLU VACCINE > 6 Medi cine MONTHS] Diagnostic Test 2021-12-08 urinalysis, dipstick [place] [facility] Pending 00:00:00 [code = urinalysis, Urology dipstick] Future Scheduled 2021-09-[address] [facility] 00:00:00 measurement (procedure) [facility] [code = 71492076] Future Scheduled 2021-07-15 TETANUS SHOT (ADULT) [facility] 14:04:54 [code = TETANUS SHOT Medicin e (ADULT)] Future Scheduled 2021-07-[address] [facility] 14:04:54 virus screening Medicine (procedure) [code = [id number]] Future Scheduled 2021-07-15 FLU VACCINE > 6 MONTHS B [facility] Test 14:04:54 [code = FLU VACCINE > 6 Medi cine MONTHS] Future Scheduled 2021-02-12 COVID-19 VACCINE (4 - [facility] Booster) [code = COVID-19 [facility] VACCINE (4 - Booster)] Future Scheduled 2011 DTAP/TDAP/TD VACCINES ([address] [facility] 00:00:00 - Tdap) [code = Medical Cent er DTAP/TDAP/TD VACCINES (1 - Tdap)] Future Scheduled 2002 DIABETIC EYE EXAM [code = [facility] 00:00:00 DIABETIC EYE EXAM] Medical C enter Future Scheduled 2002 Urine screening for [facility] 00:00:00 protein (procedure) [code Ma dical Center = [id number]] Future Appointment 2022-12-08 Jeremiah Antonio, [address] [facility] 00:00:00 [address]; , [place] [address] Encounters Start End Encounter Admission Attending Care Care Encounter Source Date/Time Date/Time Type Type Clinicians Facility Department ID 2021-07-09 Outpatient SALEEM DONALD [facility] Surgery [id number] [facility] 02:52:47 2023-08-21 2023-08-21 Outpatient NARA SLE SLE [id number] [facility] 00:00:00 00:00:00 2023-05-22 2023-05-22 Outpatient NARA SLE SLE [id number] [facility] 00:00:00 00:00:00 2023-02-20 2023-02-20 Outpatient NARA SLE SLE [id number] [facility] 00:00:00 00:00:00 2022-11-21 2022-11-21 Outpatient SALEEM [facility]A [facility] [id number] SLE 00:00:00 00:00:00 2022-10-31 2022-10-31 Abstract Meng [facility] [id number] [facility] [address] [facility] 00[facility]00 [facility] 2022-10-26 2022-10-26 Follow-Up Nadeen Goldman [facility] [id number] 09:00[facility] 09:30:[address] [facility] 2022-10-26 2022-10-26 Outpatient SALEEM [facility]A [facility] [id number] SLE 09:15:09 09:15:09 2022-10-26 2022-10-26 Telephone Patti Benitez [facility] [id number] [id number] [facility] 00[facility]00 [facility] 2022-10-26 2022-10-26 Orders [facility] [id number] 00:00:00 00:00:[address] [facility] 2022-10-25 2022-10-25 Telephone Spencer [facility] [id number] 00:[facility] 00[facility] 2022-10-25 2022-10-25 Telephone Spencer [facility] [id number] 00:00[facility]00 00:00:00 [facility] 2022-10-24 2022-10-24 Outpatient SALEEM SOSA SLE [id number] [facility] 00:00:00 00:00:00 2022-10-23 2022-10-23 Telephone Spencer [facility] [id number] 00:00[facility]00 00:00:00 [facility] 2022-10-11 2022-10-11 Telephone Patti Benitez [facility] [id number] [id number] [facility]00 00:00:00 [facility] 2022-08-28 2022-08-28 Outpatient GC_[facility]N_[facility] PRIV PRIV [id number] [facility] 00:00:[facility] 00:00:00 k-In [id number] Medica l 2022-08-28 2022-08-28 Shawna [facility]IV [facility] [id number] [facility] 00:00:00 00:00:00 [facility] [place]: [id number] GC_CPCN_[place] [address], Office* [place] [address] , Ph. 2022-08-18 2022-08-18 Documentat Patti Benitez [facility] [id number] [id number] 00:00[facility]00 00:00:00 [facility] 2022-08-15 2022-08-15 Follow-Up Saleem Donald [facility] [id number] [id number] 10:15:00 10:30:[address] [facility] 2022-08-15 2022-08-15 Outpatient SALEEM SOSA SLE SLE [id number] SLEH 09:35:07 09:35:07 2022-08-04 2022-08-04 Outpatient SALEEM SOSA SLEDori [facility]H [id number] [facility] 07:57:58 23:59:00 2022-08-04 2022-08-04 [facility] Saleem Donald [facility] [id number] [id number] 07:57:58 23:59:00 Encounter [facility] 2022-08-04 2022-08-04 Orders Иван [facility] [id number] 00:00:00 00:00:[address] [facility] 2022-08-04 2022-08-04 Orders Lasha [facility] [id number] 00:00:00 00:00:00 Only [facility] 2022-08-04 2022-08-04 Outside Saleem Donald [facility] [id number] 00:00[facility]00 00:00:00 [facility] 2022-08-01 2022-08-01 Orders Saleem Donald [facility] [id number] 00:00:00 00:00:00 Only [facility] 2022-07-28 2022-07-28 Outpatient EL SLE SLE [id number] [facility] 00:00:00 00:00:00 2022-07-26 2022-07-26 Outpatient GC_CPCN_Wal PRIV PRIV [id number] [facility] 00:00:00 00:00:00 k-In [id number] Medica l 2022-07-26 2022-07-26 Telephone Lasha [facility] [id number] 00:00:00 00:00:00 [facility] 2022-07-25 2022-07-25 [facility] Saleem Donald [facility] [id number] [id number] 07:30:00 23:59:00 Encounter [facility] 2022-07-25 2022-07-25 Outpatient SALEEM SOSA SLE SLEH [id number] [facility] 00:00:00 23:59:00 2022-07-25 2022-07-25 Outpatient SALEEM SOSA SLE SLE [id number] [facility] 00:00:00 00:00:00 2022-07-25 2022-07-25 Telephone Marisabel Garcia [facility] [id number] [facility] 00:00:00 [facility] 2022-07-25 2022-07-25 Abstract Marisabel Garcia [facility] [id number] [id number] 00:00[facility]00 00:00:00 [facility] 2022-07-24 2022-07-24 Telephone Lasha [facility] [id number] 00:00:00 00:00:00 [facility] 2022-07-11 2022-07-11 Out[facility] PRIV PRIV [id number] [facility] 00:00:00 00:00:00 k-In [id number] Medica l 2022-07-11 2022-07-11 Shawna [facility]IV [facility] 11 [facility] 00:00:00 00:00:00 Sandor [facility] [place]: [address] [facility] [facility], Office* [place] [address] , Ph. 2022-06-30 2022-06-30 Telephone Marisabel Garcia [facility] [id number] [id number] 00:00[facility]00 00:00:00 [facility] 2022-06-29 2022-06-29 Telephone Marisabel Garcia [facility] [id number] [id number] 00:00[facility]00 00:00:00 [facility] 2022-06-22 2022-06-22 Orders Lasha [facility] [id number] 00:00:00 00:00:00 Only [facility] 2022-06-21 2022-06-21 Orders Lasha [facility] [id number] 00:00:00 00:00:00 Only [facility] 2022-06-21 2022-06-21 Telephone Lasha [facility] [id number] 00:00:00 00:00:00 [facility] 2022-06-20 2022-06-20 Office TAB BECKWITH 1.2.840.[id number] [place] [address] 13:16:58 16:26:40 Visit PRINCESS AMBULATOR 350.1.13.21 College Y 0.2.7.2.686 of [id number] Medi annie 300 e 2022-05-19 2022-05-19 Outpatient BCM BCM [id number] [facility] 05:49:00 23:59:00 [facility] 2022-05-19 2022-05-19 Outpatient EL CHARY BECKWITH Surgery [id number] SLE 05:49:00 15:12:00 [facility] 2022-05-19 2022-05-19 [facility] [id number] 05:49:00 15:12:00 Encounter [facility] 2022-05-19 2022-05-19 [id number] 07:30:00 11:37:00 [facility] 2022-05-19 2022-05-19 Anesthesia Luis E Harrison [facility] [id number] 07:20:00 10:02:[address] Event Jeremiah Jacobs Suzanne [facility] 2022-05-19 2022-05-19 [id number] [facility] 00:00:00 05:48:00 [facility] 2022-05-19 2022-05-19 Orders [facility] [id number] 00:00:00 00:00:00 [facility] 2022-05-15 2022-05-15 Office Princess Beckwith [facility] [id number] 11:00:00 11:15:00 Visit Ayanna [facility] 2022-05-15 2022-05-15 Outpatient [facility] [id number] SLE 10:40:44 10:40:44 2022-05-10 2022-05-10 Telephone Saurabh [facility] [id number] 00:00:00 00:00:00 [facility] 2022-05-05 2022-05-05 Outpatient EL SLE SLE [id number] [facility]H 00:00:00 00:00:00 2022-05-04 2022-05-04 Outpatient EL SLEH SLE [id number] [facility] 15:49:30 23:59:00 2022-05-04 2022-05-04 [facility] [id number] 14:00:00 23:59:00 Encounter [facility] 2022-05-04 2022-05-04 Travel [facility] [id number] [facility]00 00:00:00 [facility] 2022-05-04 2022-05-04 Telephone Marisabel Garcia [facility] [id number] 00:00[facility]00 00:00:00 [facility] 2022-05-03 2022-05-03 Orders Lasha [facility] [id number] 00:00:00 00:00:00 Only [facility] 2022-05-02 2022-05-02 Orders Saurabh [facility] [id number] 00:00:00 00:00:00 Only [facility] 2022-04-27 2022-04-27 Office TAB BECKWITH 1.2.840.114 [id number] [facility] 11:26:13 14:17:53 Visit [facility]ESS AMB[facility]ATOR 350.1.13.21 College Y 0.2.7.2.686 of [id number] Medi annie 300 e 2022-04-24 2022-04-24 Outpatient EL SLEH SLEH [id number] [facility] 00:00:00 00:00:00 2022-04-21 2022-04-21 Orders Saleem Donald [facility] [id number] [facility] 10:30:00 10:45:[address] [facility] 2022-04-21 2022-04-21 Outpatient EL SLEH SLEH [id number] [facility]H 10:30:37 10:30:37 2022-04-21 2022-04-21 Telephone Lasha [facility] [id number] 00:00:00 00:00:00 [facility] 2022-04-18 2022-04-18 Documentcalvin Colby [facility] [id number] 00:00:00 00:00:00 ion [facility] 2022-04-14 2022-04-14 Yancy Wiley [facility] [id number] 00:00:00 00:00:00 [facility] 2022-04-13 2022-04-13 Abstract Marisabel Garcia [facility] [id number] [id number] 00:00[facility]00 00:00:00 [facility] 2022-04-11 2022-04-11 Telephone Saurabh [facility] [id number] 00:00:00 00:00:00 [facility] 2022-04-11 2022-04-11 Orders Saurabh [facility] [id number] 00:00:00 00:00:00 Only [facility] 2022-04-10 2022-04-10 [facility] [id number] 00:00:00 00:00:00 [facility] 2022-04-10 2022-04-10 Abstract Marisabel Garcia [facility] [id number] [id number] 00:00[facility]00 00:00:00 [facility] 2022-04-07 2022-04-07 Outpatient NARA DONALD [facility] [id number] SLE 08:57:21 23:59:00 2022-04-07 2022-04-07 [facility] [id number] [id number] 08:57:21 23:59:00 Encounter [facility] 2022-04-07 2022-04-07 Outpatient SALEEM [facility]A [facility] [id number] SLE 08:57:14 23:59:00 2022-04-07 2022-04-07 [facility] [id number] [id number] 08:57:14 23:59:00 Encounter [facility] 2022-04-07 2022-04-07 Outpatient [facility] [id number] [facility] 00:00:00 23:59:00 Loi 2022-04-07 2022-04-07 Follow-Up Saleem Donald [facility] [id number] 13:00:00 13:15:[address] [facility] 2022-04-07 2022-04-07 Outpatient ALIA HERNANDEZ SLE [id number] SLE 08:41:08 08:41:08 ZULEMA 2022-03-29 2022-03-29 Telephone Saurabh [facility] [id number] 00:00:00 00:00:00 [facility] 2022-03-28 2022-03-28 Telephone Saurabh [facility] [id number] 00:00:00 00:00:00 [facility] 2022-03-10 2022-03-10 Follow-Up Carolin Saleem [facility] [id number] 13:00:00 13:15:00 [facility] 2022-03-10 2022-03-10 [facility] [id number] SLE 11:34:05 11:34:05 2022-03-10 2022-03-10 Orders [facility] [id number] 00:00:00 00:00:[address] [facility] 2022-03-01 2022-03-01 Telephone Marisabel Garcia [facility] [id number] 00:00:00 00:00:00 [facility] 2022-02-14 2022-02-14 Telephone Taniya [facility] [id number] 00:00:00 00:00:00 [facility] 2022-02-02 2022-02-02 Orders Saurabh [facility] [id number] 00:00:00 00:00:00 Only [facility] 2022-02-02 2022-02-02 Orders Saurabh, [facility] [id number] 00:00:00 00:00:00 Only [facility] 2022-02-01 2022-02-01 Telephone Marisabel Garcia [facility] [id number] 00:00:00 00:00:00 [facility] 2022-01-20 2022-01-20 Follow-Up DonaldSaleem [facility] [id number] 14:00:00 14:15:[address] [facility] 2022-01-20 2022-01-20 Outpatient EL SALEEM DONALD SLE SLEH [id number] SLEH 10:38:28 10:38:28 2022-01-20 2022-01-20 Travel 1.2.840.1 1.2.532.549 [id number] [facility]i 00:00:00 00:00:[address] 3.430.2.7 0.2.7.3.698 Ho spita .3.541850 084.8 l .8 2022-01-20 2022-01-20 Orders [facility] [id number] 00:00:00 00:00:[address] [facility] 2022-01-16 2022-01-16 Telephone Saurabh, [facility] [id number] 00:00:00 00:00:00 [facility] 2022-01-16 2022-01-16 Telephone Saurabh, [facility] [id number] 00:00:00 00:00:00 [facility] 2022-01-13 2022-01-13 Orders Saurabh, [facility] [id number] 00:00:00 00:00:00 Only [facility] 2022-01-12 2022-01-12 Telephone Saurabh, [facility] [id number] 00:00:00 00:00:00 [facility] 2022-01-04 2022-01-04 Telephone Saurabh, [facility] [id number] 00:00:00 00:00:00 [facility] 2022-01-03 2022-01-03 Manjula Floressavanna [facility] [id number] 00:00:00 00:00:00 [facility] 2022-01-02 2022-01-02 Outpatient [facility] [id number] [place] [address] 00:00:00 23:59:00 [facility] 2022-01-02 2022-01-02 Outpatient SALEEM SOSA [facility] Surgery [id number] SLEH 09:25:00 21:13:00 2022-01-02 2022-01-02 [facility] Saleem Donald [facility] [id number] [id number] 09:25:00 21:13:00 Encounter [facility] 2022-01-02 2022-01-02 [id number] 14:06:00 16:10:00 [facility] 2022-01-02 2022-01-02 [facility] [id number] 00:00:00 00:00:00 [facility] 2022-01-02 2022-01-02 Blanca Jose Marisabel [facility] [id number] [id number] 00:00:00 00:00:00 [facility] 2021-12-30 2021-12-30 Follow-Up Saleem Donald [facility] [id number] 14:15:00 14:30:00 [facility] 2021-12-30 2021-12-30 Outpatient SALEEM SOSA SLE [id number] SLEH 10:40:24 10:40:24 2021-12-30 2021-12-30 Telephone Saurabh, [facility] [id number] 00:00:00 00:00:00 [facility] 2021-12-26 2021-12-26 Telephone Saurabh [facility] [id number] 00:00:00 00:00:00 [facility] 2021-12-23 2021-12-23 Outpatient SALEEM SOSA SLE SLE [id number] SLEH 07:43:20 23:59:00 2021-12-23 2021-12-23 [facility] CarolinSaleem [facility] [id number] 07:43:20 23:59:00 Encounter [facility] 2021-12-23 2021-12-23 Outpatient [facility] [id number] [facility] 00:00:00 23:59:00 Loi 2021-12-23 2021-12-23 Outpatient EL SLEH SLEH [id number] [facility] 07:31:49 07:31:49 2021-12-23 2021-12-23 [facility] Saleem Donald [facility] [id number] [facility] 07:15:00 07:30:00 Support Sangeeta Hernandes [facility] 2021-12-23 2021-12-23 Outpatient SALEEM SOSA SLE SLEH [id number] [facility] 00:00:00 00:00:00 2021-12-23 2021-12-23 Outpatient SLE SLEH [id number] [facility] 00:00:00 00:00:00 2021-12-22 2021-12-22 Orders Saurabh [facility] [id number] 00:00:00 00:00:00 Only [facility] 2021-12-16 2021-12-16 Outpatient SALEEM SOSA SLE SLEH [id number] SLEH 10:57:36 23:59:00 2021-12-16 2021-12-16 [facility] Saleem Donald [facility] [id number] 09:00:00 23:59:00 Encounter [facility] 2021-12-16 2021-12-16 Outpatient EL SLEH SLEH [id number] [facility] 10:26:09 10:26:09 2021-12-16 2021-12-16 Orders Saleem DonaldGuero [facility] [id number] [facility] 08:15:00 08:30:[address] [facility] 2021-12-16 2021-12-16 Outpatient SALEEM SOSA [facility] SLE [id number] SLEH 00:00:00 00:00:00 2021-12-16 2021-12-16 Outpatient SALEEM SOSA [facility] SLE [id number] SLEH 00:00:00 00:00:00 2021-12-16 2021-12-16 Outpatient NARA [facility] SLE [id number] [facility]H 00:00:00 00:00:00 2021-12-16 2021-12-16 Telephone Saurabh [facility] [id number] 00:00:00 00:00:00 [facility] 2021-12-16 2021-12-16 Telephone [facility] [id number] [id number] 00:00:00 00:00:00 [facility] 2021-12-16 2021-12-16 Telephone [facility] [id number] 00:00:00 00:00:00 [facility] 2021-12-15 2021-12-15 Telephone Lilli 1.2.840.1 [id number] Methodi 00:00:00 00:00:[address] 3.430.2.7 Hospit a .3.655168 l .8 2021-12-15 2021-12-15 Telephone Marisabel Garcia [facility] [id number] 00:00[facility]00 00:00:00 [facility] 2021-12-12 2021-12-12 [facility] [id number] [place] 11:32:00 11:32:00 [id number] [facility] 2021-12-08 2021-12-08 [facility] Marisela 1.2.840.1 [id number] Methodi 13:00:00 23:59:00 Encounter Jeremiah Rivera. 54953.1.[address] 3.430.2.7 Hospit a .3.008849 l .8 2021-12-08 2021-12-08 Outpatient Lapin_S [facility] [place] [id number] [place] 01:02:00 01:02:00 [facility] 2021-12-08 2021-12-08 Outpatient LAPIN, [facility] [id number] [place] 00:00:00 00:00:[address] 2021-12-08 2021-12-08 Outpatient Lapin, [facility] [id number] 2-a 00:00:00 00:00:00 Jeremiah [id number] Kathleen [id number] 2021-12-08 2021-12-08 Jeremiah [place] - [id number] Dori cervantes 00:00:00 00:00:00 Kathleen Antonio MD: ro [address], [place] [address] , Ph. 2021-12-08 2021-12-08 Travel 1.2.840.1 1.2.735.879 [id number] [facility]i 00:00:00 00:00:[address] 3.430.2.7 0.2.7.3.698 Ho spita .3.735171 084.8 l .8 2021-12-08 2021-12-08 Transcribe Lapin, 1.2.840.1 [id number] Methodi 00:00:00 00:00:00 Orders Jeremiah L. 80551.1.1 644 s t 3.430.2.7 Hospit a .3.352082 l .8 2021-12-07 2021-12-07 Outpatient Lapin_S [facility] [id number]- [place] 10:42:00 10:42:00 [facility] 2021-11-21 2021-11-21 Telephone Saurabh [facility] [id number] 00:00:00 00:00:00 [facility] 2021-11-18 2021-11-18 Refill Saurabh [facility] [id number] 00:00:00 00:00:00 [facility] 2021-11-04 2021-11-04 Outpatient SALEEM SOSA SLE [facility] [id number] [facility] 00:00:00 00:00:00 2021-11-04 2021-11-04 Outpatient EL SLEH [facility] [id number] [facility] 00:00:00 00:00:00 2021-11-04 2021-11-04 Outpatient EL SLEH SLE[facility] [id number] [facility] 00:00:00 00:00:00 2021-11-04 2021-11-04 Abstract Marisabel Garcia [facility] [id number] 00:00[facility]00 00:00:00 [facility] 2021-11-04 2021-11-04 Telephone Apollo [facility] [id number] 00:00:00 00:00:00 [facility] 2021-10-28 2021-10-28 Outpatient SALEEM SOSA SLE [facility]H [id number] [facility] 00:00:00 23:59:00 2021-10-28 2021-10-28 Outpatient SALEEM SOSA SLE [facility] [id number] [facility] 00:00:00 00:00:00 2021-10-28 2021-10-28 Outpatient EL SLEH SLEH [id number] [facility] 00:00:00 00:00:00 2021-10-14 2021-10-14 Outpatient SALEEM SOSA SLE SLEH [id number] [facility] 00:00:00 00:00:00 2021-10-11 2021-10-11 Outpatient SALEEM SOSA SLE SLEH [id number] [facility] 00:00:00 00:00:00 2021-09-16 2021-09-16 Outpatient EL SLEH SLEH [id number] [facility] 00:00:00 00:00:00 2021-09-16 2021-09-[address] [id number] [facility] 00:00:00 00:00:00 2021-09-16 2021-09-16 Outpatient EL [facility] SLE [id number] [facility]H 00:00:00 00:00:00 2021-08-16 2021-08-16 Outpatient Lapin_S [facility] [id number]- [place] 12:12:00 12:12:00 [id number] [facility] 2021-07-22 2021-07-22 Outpatient NARA SWAN, SLE SLE [id number] SLEH 10:35:23 10:35:23 KWASI 2021-07-17 2021-07-17 Outpatient PRIV PRIV [id number] [facility] 00:00:00 00:00:00 [id number] Medica l 2021-07-15 2021-07-[address] [facility] [id number] [facility] 13:39:51 14:01:44 Visit AMBULATOR [id number] [employer] [id number] Medi annie 300 e 2021-06-02 2021-06-02 Outpatient Lapin_S [facility] [id number] [place] 12:34:00 12:34:00 [id number] [facility] 2021-06-02 2021-06-02 Outpatient [facility] [id number] [place] 00:00:00 00:00:00 JEREMIAH [address] 2021-06-02 2021-06-02 [place] - [id number] [place] 00:00:00 00:00:00 Kathleen Antonio MD: [facility] ASHLEE Otero [address], [place] [address] , Ph. 2021-06-02 2021-06-02 Outpatient Lapin, [facility] [id number] 00:00:00 00:00:00 Jeremiah [id number] Kathleen [id number] 2021-06-01 2021-06-01 Outpatient Lapin_S [facility] [id number] [place] 12:42:00 12:42:00 [id number] [facility] 2021-04-15 2021-04-15 Outpatient SALEEM SOSA SLE SLE [id number] [facility] 00:00:00 00:00:00 2021-02-04 2021-02-04 Outpatient SALEEM SOSA SLE SLE [id number] [facility] 00:00:00 00:00:00 2021-02-02 2021-02-02 Outpatient NARA SLEH SLEH [id number] [facility] 00:00:00 00:00:00 2021-01-14 2021-01-14 Outpatient SALEEM SOSA SLE SLE [id number] [facility] 00:00:00 00:00:00 2021-01-14 2021-01-14 Outpatient NARA SLE SLE [id number] [facility] 00:00:00 00:00:00 2021-01-14 2021-01-14 Outpatient SLEH SLEH [id number] [facility] 00:00:00 00:00:00 2020-12-10 2020-12-10 Outpatient SALEEM SOSA SLE SLE [id number] [facility] 00:00:00 00:00:00 2020-12-03 2020-12-03 Outpatient SALEEM SOSA SLE SLE [id number] [facility] 00:00:00 00:00:00 2020-11-26 2020-11-26 Outpatient NARA SWAN SLE SLE [id number] [facility] 00:00:00 00:00:00 KWASI 2020-11-20 2020-11-20 Outpatient NARA SLE SLE [id number] [facility] 00:00:00 00:00:00 2020-11-12 2020-11-12 Outpatient NARA SWAN SLE SLE [id number] [facility] 00:00:00 00:00:00 KWASI 2020-11-09 2020-11-09 Outpatient NARA [facility] SLE [id number] [facility] 00:00:00 00:00:00 2020-11-02 2020-11-02 Outpatient EL SLE SLE [id number] [facility] 00:00:00 00:00:00 2020-11-02 2020-11-02 Outpatient EL SLEH SLEH [id number] [facility] 00:00:00 00:00:00 2020-10-29 2020-10-29 Outpatient EL SLEH SLE [id number] [facility] 00:00:00 00:00:00 2020-10-22 2020-10-22 Outpatient EL SLE SLE [id number] [facility] 00:00:00 00:00:00 2020-10-15 2020-10-15 Outpatient SALEEM SOSA SLE SLE [id number] [facility] 00:00:00 00:00:00 2020-10-15 2020-10-15 Outpatient SALEEM SOSA SLE SLE [id number] [facility] 00:00:00 00:00:00 2020-10-15 2020-10-15 Outpatient SALEEM DONALD SLE SLE [id number] [facility] 00:00:00 00:00:00 2020-10-13 2020-10-13 Outpatient SLE [facility] [id number] [facility] 00:00:00 00:00:00 2020-10-13 2020-10-13 Outpatient [facility] [id number] [facility] 00:00:00 00:00:00 2020-10-13 2020-10-13 Outpatient EL SLE [facility] [id number] [facility] 00:00:00 00:00:00 2020-02-13 2020-02-13 Outpatient [facility] [id number] 4-2 [facility] 00:00:00 00:00:00 [id number] 2020-02-06 2020-02-06 Outpatient S[facility]EM S[facility] SLE SLE [id number] [facility] 00:00:00 00:00:00 2020-01-16 2020-01-16 Outpatient [facility] [id number] 4-2 [facility] 00:00:00 00:00:00 [id number] Results Test Description Test Time Test Comments Results Result Comments Source TACROLIMUS LEVEL 2022-10-26 13:42:40 Test Item Value Reference Range Interpretation Comme nts TACROLIMUS BLOOD (BEAKER) 4.2 ng/mL 10.0-20.[address] performed on Inf[employer]low (test code = 657) [employer] y system with Chemiluminescen t Microparticle Immunoassay (CM IA) technology. Financial Aid Administrator ID - AAHAMIDCBC W/PLT COUNT & AUTO [id number] 13:36:54 Test Item Value Reference Range Interpretation Comments WHITE BLOOD CELL COUNT (BEAKER) 4.6 K/ L 3.5-10.5 (test code = 775) RED BLOOD CELL COUNT (BEAKER) 4.32 M/ L 4.63-6.08 L (test code = 761) HEMOGLOBIN (BEAKER) (test code = 12.7 GM/DL 13.7-17.5 L 410) HEMATOCRIT (BEAKER) (test code = 39.6 % 40.1-51.0 L 411) MEAN CORPUSCULAR VOLUME (BEAKER) 92 fL 79-92 (test code = 753) MEAN CORPUSCULAR HEMOGLOBIN 29.4 pg 25.7-32.2 (BEAKER) (test code = 751) MEAN CORPUSCULAR HEMOGLOBIN CONC 32.1 GM/DL 32.3-36.5 L (BEAKER) (test code = 752) RED CELL DISTRIBUTION WIDTH 13.2 % 11.6-14.4 (BEAKER) (test code = 412) PLATELET COUNT (BEAKER) (test 174 K/CU MM 150-450 code = 756) MEAN PLATELET VOLUME (BEAKER) 11.9 fL 9.4-12.4 (test code = 754) NUCLEATED RED BLOOD CELLS 0 /100 WBC 0-0 (BEAKER) (test code = 413) NEUTROPHILS RELATIVE PERCENT 54 % (BEAKER) (test code = 429) LYMPHOCYTES RELATIVE PERCENT 30 % (BEAKER) (test code = 430) MONOCYTES RELATIVE PERCENT 15 % (BEAKER) (test code = 431) EOSINOPHILS RELATIVE PERCENT 1 % (BEAKER) (test code = 432) BASOPHILS RELATIVE PERCENT 1 % (BEAKER) (test code = 437) NEUTROPHILS ABSOLUTE COUNT 2.45 K/ L 1.78-5.38 (BEAKER) (test code = 670) LYMPHOCYTES ABSOLUTE COUNT 1.35 K/ L 1.32-3.57 (BEAKER) (test code = 414) MONOCYTES ABSOLUTE COUNT (BEAKER) 0.70 K/ L 0.30-0.82 (test code = 415) EOSINOPHILS ABSOLUTE COUNT 0.03 K/ L 0.04-0.54 L (BEAKER) (test code = 416) BASOPHILS ABSOLUTE COUNT (BEAKER) 0.03 K/ L 0.01-0.08 (test code = 417) IMMATURE GRANULOCYTES-RELATIVE 0.20 % 0.00-1.00 PERCENT (BEAKER) (test code = 2801) HEPATIC FUNCTION [id number] 12:47:20 Test Item Value Reference Range Interpretation Comments TOTAL PROTEIN (BEAKER) 6.6 gm/dL 6.0-8.3 Speci men slightly (test code = 770) hemolyzed ALBUMIN (BEAKER) (test 3.9 g/dL 3.5-5.0 Speci men slightly code = 1145) hemolyzed BILIRUBIN TOTAL 4.6 mg/dL 0.2-1.2 H Specimen sli ghtly (BEAKER) (test code = hemoly zed 377) BILIRUBIN DIRECT 0.3 mg/dL 0.1-0.5 Specimen sl ightly (BEAKER) (test code = hemoly zed 706) ALKALINE PHOSPHATASE 76 U/L 40-150 (BEAKER) (test code = 346) AST (SGOT) (BEAKER) 268 U/L 5-34 H Specimen slightly (test code = 353) hemolyzed ALT (SGPT) (BEAKER) 235 U/L 6-55 H Specimen slightly (test code = 347) hemolyzed Financial Aid Administrator ID - MITCHSpecimen moderately ictericB-TYPE NATRIURETIC FACTOR (BNP) 2022-10-26 12:30:58 Test Item Value Reference Range Interpretation Comments B-TYPE NATRIURETIC PEPTIDE (BEAKER) 513 pg/mL 0-100 H (test code = 700) Financial Aid Administrator ID - MARCOBASIC METABOLIC [id number] 12:23:52 Test Item Value Reference Range Interpretation Comments SODIUM (BEAKER) 140 meq/L 136-145 (test code = 381) POTASSIUM 4.1 meq/L 3.5-5.1 (BEAKER) (test code = 379) CHLORIDE (BEAKER) 107 meq/L 98-107 (test code = 382) CO2 (BEAKER) 27 meq/L 22-29 (test code = 355) BLOOD UREA 10 mg/dL 7-21 NITROGEN (BEAKER) (test code = 354) CREATININE 0.57 mg/dL 0.57-1.25 (BEAKER) (test code = 358) GLUCOSE RANDOM 85 mg/dL 70-105 (BEAKER) (test code = 652) CALCIUM (BEAKER) 9.1 mg/dL 8.4-10.2 (test code = 697) EGFR (BEAKER) 133 Interpretatio n of eGFR (test code = mL/min/1.73 values Stage De scription 1092) sq m Result G1 Cat l or high >=90 G2 Mildly decreased 60-89 G3a Mildl y to moderately 45-5 9 G3b Moderately to s everely 30-44 G4 Severl y decreased 15-29 G5 Kidney failure <15Reported eGF R is based on the CKD-EPI 2020 equation that d oes not use a race coefficientEsti mated GFR is not as accur ate as Creatinine [facility] in predicting glom erular filtration rate . Estimated GFR is not appl icable for dialysis patien ts Financial Aid Administrator ID - MARCOSpecimen moderately ictericTACROLIMUS [id number] 11:51:54 Test Item Value Reference Range Interpretation Comments TACROLIMUS BLOOD 8.5 ng/mL 10.0-20.0 L Test perfor med on Stringer (BEAKER) (test code Architec t Immunoassay = 657) system with Chemiluminescen t Microparticle I mmunoassay (CMIA) technolo gy. Financial Aid Administrator ID - ADMINCOMPREHENSIVE METABOLIC [id number] 10:49:06 Test Item Value Reference Range Interpretation Comments TOTAL PROTEIN 6.6 gm/dL 6.0-8.3 (BEAKER) (test code = 770) ALBUMIN (BEAKER) 4.0 g/dL 3.5-5.0 (test code = 1145) ALKALINE 77 U/L 40-150 PHOSPHATASE (BEAKER) (test code = 346) BILIRUBIN TOTAL 2.9 mg/dL 0.2-1.2 H (BEAKER) (test code = 377) SODIUM (BEAKER) 140 meq/L 136-145 (test code = 381) POTASSIUM (BEAKER) 4.0 meq/L 3.5-5.1 (test code = 379) CHLORIDE (BEAKER) 108 meq/L 98-107 H (test code = 382) CO2 (BEAKER) (test 23 meq/L 22-29 code = 355) BLOOD UREA 11 mg/dL 7-21 NITROGEN (BEAKER) (test code = 354) CREATININE 0.56 mg/dL 0.57-1.25 L (BEAKER) (test code = 358) GLUCOSE RANDOM 91 mg/dL 70-105 (BEAKER) (test code = 652) CALCIUM (BEAKER) 9.1 mg/dL 8.4-10.2 (test code = 697) AST (SGOT) 274 U/L 5-34 H (BEAKER) (test code = 353) ALT (SGPT) 302 U/L 6-55 H (BEAKER) (test code = 347) EGFR (BEAKER) 135 Interpretatio n of eGFR (test code = 1092) mL/min/1.[address] age Description sq m Result G1 Cat l or high >=90 G2 Mildly decreased 60-89 G3a Mildl y to moderately 45-5 9 G3b Moderately to s everely 30-44 G4 Severl y decreased 15-29 G5 Kidne y failure <15Reported eGF R is based on the CKD-EPI 2020 equation that d oes not use a race coefficientEsti mated GFR is not as accur ate as Creatinine [facility] in predicting glom erular filtration rate . Estimated GFR is not appl icable for dialysis patien ts Financial Aid Administrator ID - SKYE MSpecimen slightly ictericCBC W/PLT COUNT & AUTO [id number] 10:10:48 Test Item Value Reference Range Interpretation Comments WHITE BLOOD CELL COUNT (BEAKER) 5.3 K/ L 3.5-10.5 (test code = 775) RED BLOOD CELL COUNT (BEAKER) 4.84 M/ L 4.63-6.08 (test code = 761) HEMOGLOBIN (BEAKER) (test code = 14.7 GM/DL 13.7-17.5 410) HEMATOCRIT (BEAKER) (test code = 42.6 % 40.1-51.0 411) MEAN CORPUSCULAR VOLUME (BEAKER) 88 fL 79-92 (test code = 753) MEAN CORPUSCULAR HEMOGLOBIN 30.4 pg 25.7-32.2 (BEAKER) (test code = 751) MEAN CORPUSCULAR HEMOGLOBIN CONC 34.5 GM/DL 32.3-36.5 (BEAKER) (test code = 752) RED CELL DISTRIBUTION WIDTH 12.9 % 11.6-14.4 (BEAKER) (test code = 412) PLATELET COUNT (BEAKER) (test 211 K/CU MM 150-450 code = 756) MEAN PLATELET VOLUME (BEAKER) 10.3 fL 9.4-12.4 (test code = 754) NUCLEATED RED BLOOD CELLS 0 /100 WBC 0-0 (BEAKER) (test code = 413) NEUTROPHILS RELATIVE PERCENT 60 % (BEAKER) (test code = 429) LYMPHOCYTES RELATIVE PERCENT 26 % (BEAKER) (test code = 430) MONOCYTES RELATIVE PERCENT 13 % (BEAKER) (test code = 431) EOSINOPHILS RELATIVE PERCENT 1 % (BEAKER) (test code = 432) BASOPHILS RELATIVE PERCENT 0 % (BEAKER) (test code = 437) NEUTROPHILS ABSOLUTE COUNT 3.17 K/ L 1.78-5.38 (BEAKER) (test code = 670) LYMPHOCYTES ABSOLUTE COUNT 1.35 K/ L 1.32-3.57 (BEAKER) (test code = 414) MONOCYTES ABSOLUTE COUNT (BEAKER) 0.66 K/ L 0.30-0.82 (test code = 415) EOSINOPHILS ABSOLUTE COUNT 0.06 K/ L 0.04-0.54 (BEAKER) (test code = 416) BASOPHILS ABSOLUTE COUNT (BEAKER) 0.02 K/ L 0.01-0.08 (test code = 417) IMMATURE GRANULOCYTES-RELATIVE 0.20 % 0.00-1.00 PERCENT (BEAKER) (test code = 2801) MR, CARDIAC, [id number] 20:43:00DR SOODReferring: Dr. Yee Muñozisted Reason for Exam - Click Yes and Enter Reason Below->No [facility] : 1990 Sex: MFINAL REPORT Cardiovascular MRI - Chest: 08/04/2022 11:59 AM. Comparison: None available. Clinical History: 31 years old Male with orthotopic heart transplant and now suspected cardiomyopathy. Indication: This study is performed to assess myocardial damage, viability, and to quantitate left ventricular and valvular function. Technique: Rose Achieva 1.5 Debbie MRI scanner.* Turbospin echo and gradient echo imaging for anatomic definition.* Dynamic cine imaging for cardiac chamber, wall-motion, and valvular analysis.* Flow quantification sequences for hemodynamics.* Navigator-gated, whole-heart coronary MRA sequence for cardiac chamber anatomy and coronary artery origins.* T2 weighted STIR imaging (with triple IR preparation) for edema analysis.* Delayed gadolinium-enhancement analysis (inversion recovery gradient echo sequence) after injection of gadolinium-chelate (15 cc of MultiHance). RESULT: Potential study limitations: None. CHEST: The chest wall is remarkable for prior median sternotomy with magnetic susceptibility artifact. The mediastinum appears normal. No significant adenopathy is identified. This study was not optimized to assess the lungs however, limited imaging reveals no gross abnormalities. The [place] main pulmonary artery is enlarged measuring 3.4 cm. The pericardium is unremarkable. CARDIAC CHAMBERS:The cardiac chambers have normal atrioventricular and ventriculoarterial concordance, as well as normal systemic and pulmonary venous return. The biatrial sizes are consistent with orthotopic heart transplant. Left Ventricle:The left ventricle is normal in size and shape, and has normal systolic function. The left ventricular myocardium is normal in thic kn[place]. There are no regional wall motion abnormalities, except for septal bounce likely from prior cardiac surgery. Quantitative left ventricular functional values are as follows:EDV = 155 cc (normal 115-198 cc); EDVi = 97 cc/m2 (normal 63-98 cc/m2).ESV = 74 cc (normal 30-75 cc); ESVi = 46 cc/m2 (normal 16-38 cc/m2).Stroke volume = 81 cc (normal 76-132 cc); SVi = 51 cc/m2 (normal 41-65 cc/m2).LVEF = 52 % (normal 55-75%).Cardiac Output = 9.3 l/min.; Cardiac Index = 5.8 l/min/m2.LV mass = 82 gm (normal 108-184 gm); LVMi = 51 gm/m2 (normal 58-91 gm/m2). There is no increased myocardial signal intensity on T2 STIR imaging to suggest myocardial inflammation or edema. Delayed-enhancement imaging reveals uniformly "nulled" myocardium, signifying that there has been no prior ischemic myocardial damage. There is also no definite evidence of interstitial fibrosis to suggest an infiltrative process, exceptfor mild nonspecific delayed enhancement at the basal to mid inferior septum near RV insertion point. No mural or apical left ventricular thrombus is identified. Right Ventricle:The right ventricle is normal in size and shape, and has normal systolic function.Quantitative right ventricular functional values are as follows:EDV = 143 cc (normal 113-213 cc); EDVi = 89 cc/m2 (normal 60-106 cc/m2).ESV = 62 cc (normal 27-86 cc); ESVi = 39 cc/m2 (normal 14-43 cc/m2).Stroke volume = 81 cc (normal 72-140 cc); SVi = 39 cc/m2 (normal 38-70 cc/m2).RVEF = 57 % (normal 53- 78%).Cardiac Output = 9.3 l/min.; Cardiac Index = 5.8 l/min/m2. VALVES:The mitral valve is mildly thickened. There is mild mitral regurgitation.Integrating LV volumetric and aortic flow quantification data reveals:*Quantitative mitral regurgitant volume: 19 cc/beat*Quantitative mitral regurgitant fraction: 23 % The aortic valve is structurally normal. There is no aortic regurgitation.Flow quantification through the ascending aorta:*Forward volume: 62 cc/beat*Reverse volume: 1 cc/beat*Net forward volume: 61 cc/beat*Aortic regurgitant fraction: 1 % The tricuspid valve is structurally normal. There is trivial imaged tricuspid regurgitation. Flow quantification sequences through the SVC and right upper lobe pulmonary vein reveal abnormal flow patterns consistent with elevated right and elevated left atrial pressures. ABDOMEN:Limited imagingthrough the upper abdomen reveals no abnormalities of the imaged organs. IMPRESSION: 1. Normal left ventricular size with low normal global systolic function (LVEF: 52%, LVEDVi: 97 cc/m2). There is evidence of septal bounce, from prior cardiac surgery. No discrete myocardial fibrosis on delayed-enhancement imaging to suggest an infiltrative process or prior ischemic injury. No mural or apical left ventricular thrombus is identified. 2. Normal right ventricular size and systolic function. (RVEF: 57%;RVEDVi: 89 cc/m2). 3. No significant valvular abnormalities. 4. The biatrial sizes are consistent with orthotopic heart transplant. The [place] main pulmonary artery is enlarged measuring 3.4 cm. - Flowquantification sequences through the SVC and right upper lobe pulmonary vein reveal abnormal flow patterns consistent with elevated right and elevated left atrial pressures. Signed: Jacek Navarro Verified Date/Time: 08/13/2022 20:43:03 RAD, CHEST, 2 [id number] 10:35:00DR SOODReferring: Dr. Yee Wynne for exam:->pacemaker interrogation [facility] : 1990 Sex: MFINAL REPORT CLINICAL HISTORY: pacemaker interrogation TECHNIQUE: 2 views of the chest COMPARISON: 12/16/2021 IMPRESSION: The previous left chest wall pacemaker has been removed without retained hardware. There are no infiltrates or effusions. Cardiomediastinal silhouette is otherwise unchanged post sternotomy. Signed: Suzanne Dennis Verified Date/Time: 07/25/2022 10:35:09Reading Location: [address] Prepare [id number] 10:13:00 Test Item Value Reference Range Interpretation Comments CROSSMATCH (test code = COMPATIBLE 2264) Unit ABO (test code = O Neg [id number]) UNIT NUMBER (test code = [id number] 934-0) Status (test code = RETURNED FROM ISSUE 7571617) Blood Bank Product (test RED BLOOD CELLS code = 2263) PRODUCT CODE (test code = P9175Q66 933-2) [facility]-Glucose [id number] 06:13:40 Test Item Value Reference Range Interpretation Comments POC-Glucose Meter (test 86 mg/dL 70-110 : TE STED AT [facility] code = 1538) [address] [facility], 770 30: Financial Aid Administrator/Techni francy ID = [id number] for FRANKLINCHRISTIAN CHAN [place] Lab Interpretation (test Normal code = 62604-9) [facility]-GLUCOSE [id number] 06:13:40 Test Item Value Reference Range Interpretation Comments POC-GLUCOSE METER 86 mg/dL 70-110 : TESTED A T [facility] 6720 (BEAKER) (test code = MADELEINE Geller [facility], 1538) [address]: Financial Aid Administrator/Techni francy ID = [id number] for ROSALIND PEPPER BASIC METABOLIC [id number] 13:03:11 Test Item Value Reference Range Interpretation Comments SODIUM (BEAKER) 140 meq/L 136-145 (test code = 381) POTASSIUM 3.4 meq/L 3.5-5.1 L (BEAKER) (test code = 379) CHLORIDE (BEAKER) 106 meq/L 98-107 (test code = 382) CO2 (BEAKER) 24 meq/L 22-29 (test code = 355) BLOOD UREA 8 mg/dL 7-21 NITROGEN (BEAKER) (test code = 354) CREATININE 0.62 mg/dL 0.57-1.25 (BEAKER) (test code = 358) GLUCOSE RANDOM 89 mg/dL 70-105 (BEAKER) (test code = 652) CALCIUM (BEAKER) 9.1 mg/dL 8.4-10.2 (test code = 697) EGFR (BEAKER) 131 Interpretatio n of eGFR (test code = mL/min/1.73 values Stage De scription 1092) sq m Result G1 Cat l or high >=90 G2 Mildly decreased 60-89 G3a Mildl y to moderately 45-5 9 G3b Moderately to s everely 30-44 G4 Severl y decreased 15-29 G5 Kidney failure <15Reported eGF R is based on the CKD-EPI 2021 equation that d oes not use a race coefficientEsti mated GFR is not as accur ate as Creatinine [facility] in predicting glom erular filtration rate . Estimated GFR is not appl icable for dialysis patien ts Financial Aid Administrator ID - ADMINSpecimen moderately ictericPROTHROMBIN [id number] 11:43:04 Test Item Value Reference Range Interpretation Comments PROTIME (BEAKER) 14.1 seconds 11.9-14.2 (test code = 759) INR (BEAKER) (test 1.16 See_Comment [Automat ed message] code = 370) The system e(ye)BRAIN generated this result transmitted ref erence range: <=5.90. The reference range was not used to int erpret this result as normal/abnormal . RECOMMENDED COUMADIN/WARFARIN INR THERAPY RANGESSTANDARD DOSE: 2.0 - 3.0 Includes: PROPHYLAXIS for venous thrombosis, systemic embolization; TREATMENT for venous thrombosis and/or pulmonary embolus.HIGH RISK: Target INR is 2.5-3.5 for patients with mechanical heart valves.COVID [id number] 11:41:13 Test Item Value Reference Range Interpretation Comments SARS COVID ANTIGEN Negative Negative (test code = 30776-8) CHAZ (test code = CHAZ) The QuickVue SARS Antigen test does not differentiate between SARS-CoV and SARS-CoV-2. The test has been authorized by the FDA under an EUA for use by authorized laboratories. The QuickVue SARS Antigen test does not differentiate between SARS-CoV and SARS-CoV-2. The test has been authorized by the FDA under an EUA for use by authorized laboratories. Lab Interpretation Normal (test code = 67824-8) [facility] [id number] 11:41:13 Test Item Value Reference Range Interpretation Comments SARS COVID ANTIGEN (test code = Negative Negative [id number]) The QuickVue SARS Antigen test does not differentiate between SARS-CoV and SARS-CoV-2.The test has been authorized by the FDA under an EUA for use by authorized laboratories.The QuickVue SARS Antigen test does not differentiate between SARS-CoV and SARS-CoV-2.The test has been authorized by the FDA under an EUA for use by authorized laboratories.CBC W/PLT COUNT & AUTO DIFFERENTIAL 2022-05-15 11:35:06 Test Item Value Reference Range Interpretation Comments WHITE BLOOD CELL COUNT (BEAKER) 4.4 K/ L 3.5-10.5 (test code = 775) RED BLOOD CELL COUNT (BEAKER) 4.98 M/ L 4.63-6.08 (test code = 761) HEMOGLOBIN (BEAKER) (test code = 14.9 GM/DL 13.7-17.5 410) HEMATOCRIT (BEAKER) (test code = 44.8 % 40.1-51.0 411) MEAN CORPUSCULAR VOLUME (BEAKER) 90.0 fL 79.0-92.2 (test code = 753) MEAN CORPUSCULAR HEMOGLOBIN 29.9 pg 25.7-32.2 (BEAKER) (test code = 751) MEAN CORPUSCULAR HEMOGLOBIN CONC 33.3 GM/DL 32.3-36.5 (BEAKER) (test code = 752) RED CELL DISTRIBUTION WIDTH 12.7 % 11.6-14.4 (BEAKER) (test code = 412) PLATELET COUNT (BEAKER) (test 210 K/CU MM 150-450 code = 756) MEAN PLATELET VOLUME (BEAKER) 11.0 fL 9.4-12.4 (test code = 754) NUCLEATED RED BLOOD CELLS 0 /100 WBC 0-0 (BEAKER) (test code = 413) NEUTROPHILS RELATIVE PERCENT 50 % (BEAKER) (test code = 429) LYMPHOCYTES RELATIVE PERCENT 34 % (BEAKER) (test code = 430) MONOCYTES RELATIVE PERCENT 14 % (BEAKER) (test code = 431) EOSINOPHILS RELATIVE PERCENT 1 % (BEAKER) (test code = 432) BASOPHILS RELATIVE PERCENT 1 % (BEAKER) (test code = 437) NEUTROPHILS ABSOLUTE COUNT 2.21 K/ L 1.78-5.38 (BEAKER) (test code = 670) LYMPHOCYTES ABSOLUTE COUNT 1.49 K/ L 1.32-3.57 (BEAKER) (test code = 414) MONOCYTES ABSOLUTE COUNT (BEAKER) 0.62 K/ L 0.30-0.82 (test code = 415) EOSINOPHILS ABSOLUTE COUNT 0.04 K/ L 0.04-0.54 (BEAKER) (test code = 416) BASOPHILS ABSOLUTE COUNT (BEAKER) 0.02 K/ L 0.01-0.08 (test code = 417) IMMATURE GRANULOCYTES-RELATIVE 0 % 0-1 PERCENT (BEAKER) (test code = 2801) [id number] 12:52:08 Test Item Value Reference Range Interpretation Comments MAGNESIUM (BEAKER) (test code = 1.6 mg/dL 1.6-2.6 627) Financial Aid Administrator ID - PIAYA LCOMPREHENSIVE METABOLIC [id number] 12:52:08 Test Item Value Reference Range Interpretation Comments TOTAL PROTEIN 6.9 gm/dL 6.0-8.3 (BEAKER) (test code = 770) ALBUMIN (BEAKER) 4.2 g/dL 3.5-5.0 (test code = 1145) ALKALINE PHOSPHATASE 75 U/L 40-150 (BEAKER) (test code = 346) BILIRUBIN TOTAL 4.4 mg/dL 0.2-1.2 H (BEAKER) (test code = 377) SODIUM (BEAKER) (test 136 meq/L 136-145 code = 381) POTASSIUM (BEAKER) 4.0 meq/L 3.5-5.1 (test code = 379) CHLORIDE (BEAKER) 105 meq/L 98-107 (test code = 382) CO2 (BEAKER) (test 23 meq/L 22-29 code = 355) BLOOD UREA NITROGEN 7 mg/dL 7-21 (BEAKER) (test code = 354) CREATININE (BEAKER) 0.58 mg/dL 0.57-1.25 (test code = 358) GLUCOSE RANDOM 96 mg/dL 70-105 (BEAKER) (test code = 652) CALCIUM (BEAKER) 8.6 mg/dL 8.4-10.2 (test code = 697) AST (SGOT) (BEAKER) 315 U/L 5-34 H (test code = 353) ALT (SGPT) (BEAKER) 312 U/L 6-55 H (test code = 347) EGFR (BEAKER) (test 166 ESTIMATE D GFR IS code = 1092) mL/min/1.73 sq NOT ACCURA TE m CREATININE CLEARANCE IN PREDICTING GLOMERULAR FILTRATION RATE . ESTIMATED GFR I S NOT APPLICABLE FOR DIALYSIS PATIEN TS. Financial Aid Administrator ID - PIAYA LSpecimen moderately ictericTACROLIMUS [id number] 12:31:01 Test Item Value Reference Range Interpretation Comments TACROLIMUS BLOOD 7.1 ng/mL 10.0-20.0 L Test perfor med on Stringer (BEAKER) (test code Architec t Immunoassay = 657) system with Chemiluminescen t Microparticle I mmunoassay (CMIA) technolo gy. Financial Aid Administrator ID - ADMINCBC W/PLT COUNT & AUTO [id number] 10:55:24 Test Item Value Reference Range Interpretation Comments WHITE BLOOD CELL COUNT (BEAKER) 4.0 K/ L 3.5-10.5 (test code = 775) RED BLOOD CELL COUNT (BEAKER) 4.70 M/ L 4.63-6.08 (test code = 761) HEMOGLOBIN (BEAKER) (test code = 14.7 GM/DL 13.7-17.5 410) HEMATOCRIT (BEAKER) (test code = 42.1 % 40.1-51.0 411) MEAN CORPUSCULAR VOLUME (BEAKER) 89.6 fL 79.0-92.2 (test code = 753) MEAN CORPUSCULAR HEMOGLOBIN 31.3 pg 25.7-32.2 (BEAKER) (test code = 751) MEAN CORPUSCULAR HEMOGLOBIN CONC 34.9 GM/DL 32.3-36.5 (BEAKER) (test code = 752) RED CELL DISTRIBUTION WIDTH 13.2 % 11.6-14.4 (BEAKER) (test code = 412) PLATELET COUNT (BEAKER) (test 179 K/CU MM 150-450 code = 756) MEAN PLATELET VOLUME (BEAKER) 10.6 fL 9.4-12.4 (test code = 754) NUCLEATED RED BLOOD CELLS 0 /100 WBC 0-0 (BEAKER) (test code = 413) NEUTROPHILS RELATIVE PERCENT 54 % (BEAKER) (test code = 429) LYMPHOCYTES RELATIVE PERCENT 31 % (BEAKER) (test code = 430) MONOCYTES RELATIVE PERCENT 13 % (BEAKER) (test code = 431) EOSINOPHILS RELATIVE PERCENT 1 % (BEAKER) (test code = 432) BASOPHILS RELATIVE PERCENT 1 % (BEAKER) (test code = 437) NEUTROPHILS ABSOLUTE COUNT 2.12 K/ L 1.78-5.38 (BEAKER) (test code = 670) LYMPHOCYTES ABSOLUTE COUNT 1.24 K/ L 1.32-3.57 L (BEAKER) (test code = 414) MONOCYTES ABSOLUTE COUNT (BEAKER) 0.53 K/ L 0.30-0.82 (test code = 415) EOSINOPHILS ABSOLUTE COUNT 0.04 K/ L 0.04-0.54 (BEAKER) (test code = 416) BASOPHILS ABSOLUTE COUNT (BEAKER) 0.02 K/ L 0.01-0.08 (test code = 417) IMMATURE GRANULOCYTES-RELATIVE 0 % 0-1 PERCENT (BEAKER) (test code = 2801) Venous doppler legs [id number] 16:39:54Ejection FractionSLEH ECHO HEARTLAB [facility] W/Doppler(CW/PW/Color)2022-04-07 10:59:37Ejection FractionSLEH ECHO HEARTLAB [facility] CenterTACR[facility] [id number] 10:57:30 Test Item Value Reference Range Interpretation Comments TACROLIMUS BLOOD 16.6 ng/mL 10.0-20.0 Test perfor med on [employer] ([facility]) (test code Architec t Immunoassay = 657) system with Chemiluminescen t Microparticle Immunoassay (CM IA) technology. Financial Aid Administrator ID - MOBASIC METABOLIC [id number] 09:45:31 Test Item Value Reference Range Interpretation Comments SODIUM (BEAKER) 137 meq/L 136-145 (test code = 381) POTASSIUM (BEAKER) 4.0 meq/L 3.5-5.1 (test code = 379) CHLORIDE (BEAKER) 107 meq/L 98-107 (test code = 382) CO2 (BEAKER) (test 25 meq/L 22-29 code = 355) BLOOD UREA NITROGEN 9 mg/dL 7-21 (BEAKER) (test code = 354) CREATININE (BEAKER) 0.58 mg/dL 0.57-1.25 (test code = 358) GLUCOSE RANDOM 87 mg/dL 70-105 (BEAKER) (test code = 652) CALCIUM (BEAKER) 8.9 mg/dL 8.4-10.2 (test code = 697) EGFR (BEAKER) (test 166 mL/min/1.73 ESTIM ATED GFR IS code = 1092) sq m NOT ACCURATE CREATININE CLEARANCE IN PREDICTING GLOMERULAR FILTRATION RATE . ESTIMATED GFR I S NOT APPLICABLE FOR DIALYSIS PATIEN TS. Financial Aid Administrator ID - SKYE MSpecimen moderately ictericCBC W/PLT COUNT & AUTO [id number] 09:00:11 Test Item Value Reference Range Interpretation Comments WHITE BLOOD CELL COUNT (BEAKER) 4.5 K/ L 3.5-10.5 (test code = 775) RED BLOOD CELL COUNT (BEAKER) 5.21 M/ L 4.63-6.08 (test code = 761) HEMOGLOBIN (BEAKER) (test code = 15.7 GM/DL 13.7-17.5 410) HEMATOCRIT (BEAKER) (test code = 45.9 % 40.1-51.0 411) MEAN CORPUSCULAR VOLUME (BEAKER) 88.1 fL 79.0-92.2 (test code = 753) MEAN CORPUSCULAR HEMOGLOBIN 30.1 pg 25.7-32.2 (BEAKER) (test code = 751) MEAN CORPUSCULAR HEMOGLOBIN CONC 34.2 GM/DL 32.3-36.5 (BEAKER) (test code = 752) RED CELL DISTRIBUTION WIDTH 12.9 % 11.6-14.4 (BEAKER) (test code = 412) PLATELET COUNT (BEAKER) (test 179 K/CU MM 150-450 code = 756) MEAN PLATELET VOLUME (BEAKER) 10.8 fL 9.4-12.4 (test code = 754) NUCLEATED RED BLOOD CELLS 0 /100 WBC 0-0 (BEAKER) (test code = 413) NEUTROPHILS RELATIVE PERCENT 56 % (BEAKER) (test code = 429) LYMPHOCYTES RELATIVE PERCENT 32 % (BEAKER) (test code = 430) MONOCYTES RELATIVE PERCENT 10 % (BEAKER) (test code = 431) EOSINOPHILS RELATIVE PERCENT 1 % (BEAKER) (test code = 432) BASOPHILS RELATIVE PERCENT 0 % (BEAKER) (test code = 437) NEUTROPHILS ABSOLUTE COUNT 2.52 K/ L 1.78-5.38 (BEAKER) (test code = 670) LYMPHOCYTES ABSOLUTE COUNT 1.46 K/ L 1.32-3.57 (BEAKER) (test code = 414) MONOCYTES ABSOLUTE COUNT (BEAKER) 0.46 K/ L 0.30-0.82 (test code = 415) EOSINOPHILS ABSOLUTE COUNT 0.05 K/ L 0.04-0.54 (BEAKER) (test code = 416) BASOPHILS ABSOLUTE COUNT (BEAKER) 0.02 K/ L 0.01-0.08 (test code = 417) IMMATURE GRANULOCYTES-RELATIVE 0 % 0-1 PERCENT (BEAKER) (test code = 2801) TACROLIMUS [id number] 13:56:18 Test Item Value Reference Range Interpretation Comments TACROLIMUS BLOOD 11.0 ng/mL 10.0-20.0 Test perfor med on [employer] (BEAKER) (test code Architec t Immunoassay = 657) system with Chemiluminescen t Microparticle Immunoassay (CM IA) technology. Financial Aid Administrator ID - HGBASIC METABOLIC [id number] 12:06:24 Test Item Value Reference Range Interpretation Comments SODIUM (BEAKER) 139 meq/L 136-145 (test code = 381) POTASSIUM (BEAKER) 4.2 meq/L 3.5-5.1 (test code = 379) CHLORIDE (BEAKER) 107 meq/L 98-107 (test code = 382) CO2 (BEAKER) (test 25 meq/L 22-29 code = 355) BLOOD UREA NITROGEN 9 mg/dL 7-21 (BEAKER) (test code = 354) CREATININE (BEAKER) 0.61 mg/dL 0.57-1.25 (test code = 358) GLUCOSE RANDOM 102 mg/dL 70-105 (BEAKER) (test code = 652) CALCIUM (BEAKER) 9.5 mg/dL 8.4-10.2 (test code = 697) EGFR (BEAKER) (test 156 mL/min/1.73 ESTIM ATED GFR IS code = 1092) sq m NOT ACCURATE CREATININE CLEARANCE IN PREDICTING GLOMERULAR FILTRATION RATE . ESTIMATED GFR I S NOT APPLICABLE FOR DIALYSIS PATIEN TS. Financial Aid Administrator ID - SKYE MSpecimen moderately ictericCBC W/PLT COUNT & AUTO [id number] 11:49:55 Test Item Value Reference Range Interpretation Comments WHITE BLOOD CELL COUNT (BEAKER) 4.2 K/ L 3.5-10.5 (test code = 775) RED BLOOD CELL COUNT (BEAKER) 5.28 M/ L 4.63-6.08 (test code = 761) HEMOGLOBIN (BEAKER) (test code = 15.9 GM/DL 13.7-17.5 410) HEMATOCRIT (BEAKER) (test code = 45.9 % 40.1-51.0 411) MEAN CORPUSCULAR VOLUME (BEAKER) 86.9 fL 79.0-92.2 (test code = 753) MEAN CORPUSCULAR HEMOGLOBIN 30.1 pg 25.7-32.2 (BEAKER) (test code = 751) MEAN CORPUSCULAR HEMOGLOBIN CONC 34.6 GM/DL 32.3-36.5 (BEAKER) (test code = 752) RED CELL DISTRIBUTION WIDTH 12.8 % 11.6-14.4 (BEAKER) (test code = 412) PLATELET COUNT (BEAKER) (test 202 K/CU MM 150-450 code = 756) MEAN PLATELET VOLUME (BEAKER) 10.9 fL 9.4-12.4 (test code = 754) NUCLEATED RED BLOOD CELLS 0 /100 WBC 0-0 (BEAKER) (test code = 413) NEUTROPHILS RELATIVE PERCENT 49 % (BEAKER) (test code = 429) LYMPHOCYTES RELATIVE PERCENT 36 % (BEAKER) (test code = 430) MONOCYTES RELATIVE PERCENT 14 % (BEAKER) (test code = 431) EOSINOPHILS RELATIVE PERCENT 1 % (BEAKER) (test code = 432) BASOPHILS RELATIVE PERCENT 0 % (BEAKER) (test code = 437) NEUTROPHILS ABSOLUTE COUNT 2.06 K/ L 1.78-5.38 (BEAKER) (test code = 670) LYMPHOCYTES ABSOLUTE COUNT 1.54 K/ L 1.32-3.57 (BEAKER) (test code = 414) MONOCYTES ABSOLUTE COUNT (BEAKER) 0.58 K/ L 0.30-0.82 (test code = 415) EOSINOPHILS ABSOLUTE COUNT 0.04 K/ L 0.04-0.54 (BEAKER) (test code = 416) BASOPHILS ABSOLUTE COUNT (BEAKER) 0.01 K/ L 0.01-0.08 (test code = 417) IMMATURE GRANULOCYTES-RELATIVE 0 % 0-1 PERCENT (BEAKER) (test code = 2801) [id number] 22:09:00 Test Item Value Reference Range Interpretation Comments Tacrolimus, 8.4 mcg/L No definitive Highly therapeutic or toxic Sensitive, ranges have LC/MS/MS (Mavin) brice shed. Optimal (test code = blood drug leve ls are 20141229) influencedby ty pe of transplant, pat ient response, time post-transplant , co-administrati on of other drugs, an d drug formulation. Th e following troug h range is a suggested guideline: 5.0- 20.0 mcg/L. This may t was developed and i ts analytical perf ormance characteristics have been determined by [employer]. It has not been cleared or approved by theFDA. This assay has been valida sherlyn pursuant to the CLIA regulations and is used for clinical pu rposes. CHAZ (test code = FASTING:YES CHAZ) [facility]: YES [facility] + automated [id number] 23:13:00 Test Item Value Reference Range Interpretation Comments WBC (test code = 4.8 See_Comment [Automated message] ) The system e(ye)BRAIN generated this result transmit sherlyn reference range : 3.8 - 10.8 Thousand /uL. The reference r trav was not used to interpret this result as normal/abnormal . RBC (test code = 5.34 See_Comment [Automated message] 789-8) The system e(ye)BRAIN generated this result transmit sherlyn reference range : 4.20 - 5.80 Million/uL. The reference range was not used to interpret this result as normal/abnormal . Hemoglobin (test 16.3 g/dL 13.2-17.1 code = ) Hematocrit (test 46.6 % 38.5-50.0 code = ) MCV (test code = 87.3 fL 80.0-100.0 ) MCH (test code = 30.5 pg 27.0-33.0 ) MCHC (test code = 35.0 g/dL 32.0-36.0 ) RDW (test code = 12.9 % 11.0-15.0 ) Platelets (test code 203 See_Comment [Autom ated message] = ) The system e(ye)BRAIN generated this result transmit sherlyn reference range : 140 - 400 Thousand/ uL. The reference r trav was not used to interpret this result as normal/abnormal . MPV (test code = 11.3 fL 7.5-12.5 [id number]) # Neutros (test code 2664 See_Comment [Autom ated message] = 20200425) The system e(ye)BRAIN generated this result transmit sherlyn reference range : 1,500 - 7,800 cells/uL. The reference range was not used to interpret this result as normal/abnormal . # Lymphs (test code 1541 See_Comment [Automa sherlyn message] = 731-0) The system e(ye)BRAIN generated this result transmit sherlyn reference range : 850 - 3,900 cells/u L. The reference r trav was not used to interpret this result as normal/abnormal . # Monos (test code = 504 See_Comment [Autom ated message] ) The system e(ye)BRAIN generated this result transmit sherlyn reference range : 200 - 950 cells/uL. The reference range was not used to interpret this result as normal/abnormal . # Eos (test code = 72 See_Comment [Automat ed message] 711-2) The system e(ye)BRAIN generated this result transmit sherlyn reference range : 15 - 500 cells/uL. The reference range was not used to interpret this result as normal/abnormal . # Baso (test code = 19 See_Comment [Automa sherlyn message] 704-7) The system e(ye)BRAIN generated this result transmit sherlyn reference range : 0 - 200 cells/uL. T he reference range was not used to interpret this result as normal/abnormal . % Neutros (test code 55.5 % = ) % Lymphs (test code 32.1 % = 20200422) % Monos (test code = 10.5 % ) % Eos (test code = 1.5 % 20200420) % Baso (test code = 0.4 % 20200421) CHAZ (test code = FASTING:YES CHAZ) FASTING: YES [facility] [id number] 13:10:19 Test Item Value Reference Range Interpretation Comments TACROLIMUS BLOOD 11.6 ng/mL 10.0-20.0 Test perfor med on [employer] (BEAKER) (test code Architec t Immunoassay = 657) system with Chemiluminescen t Microparticle Immunoassay (CM IA) technology. Financial Aid Administrator ID - AAHAMIDCOMPREHENSIVE METABOLIC [id number] 11:27:28 Test Item Value Reference Range Interpretation Comments TOTAL PROTEIN 6.8 gm/dL 6.0-8.3 (BEAKER) (test code = 770) ALBUMIN (BEAKER) 4.2 g/dL 3.5-5.0 (test code = 1145) ALKALINE PHOSPHATASE 83 U/L 40-150 (BEAKER) (test code = 346) BILIRUBIN TOTAL 2.7 mg/dL 0.2-1.2 H (BEAKER) (test code = 377) SODIUM (BEAKER) (test 137 meq/L 136-145 code = 381) POTASSIUM (BEAKER) 4.1 meq/L 3.5-5.1 (test code = 379) CHLORIDE (BEAKER) 105 meq/L 98-107 (test code = 382) CO2 (BEAKER) (test 25 meq/L 22-29 code = 355) BLOOD UREA NITROGEN 13 mg/dL 7-21 (BEAKER) (test code = 354) CREATININE (BEAKER) 0.61 mg/dL 0.57-1.25 (test code = 358) GLUCOSE RANDOM 93 mg/dL 70-105 (BEAKER) (test code = 652) CALCIUM (BEAKER) 8.9 mg/dL 8.4-10.2 (test code = 697) AST (SGOT) (BEAKER) 265 U/L 5-34 H (test code = 353) ALT (SGPT) (BEAKER) 269 U/L 6-55 H (test code = 347) EGFR (BEAKER) (test 156 ESTIMATE D GFR IS code = 1092) mL/min/1.73 sq NOT ACCURA TE m CREATININE CLEARANCE IN PREDICTING GLOMERULAR FILTRATION RATE . ESTIMATED GFR I S NOT APPLICABLE FOR DIALYSIS PATIEN TS. Financial Aid Administrator ID - SKYE MSpecimen slightly ictericCBC W/PLT COUNT & AUTO [id number] 11:02:35 Test Item Value Reference Range Interpretation Comments WHITE BLOOD CELL COUNT (BEAKER) 7.6 K/ L 3.5-10.5 (test code = 775) RED BLOOD CELL COUNT (BEAKER) 5.05 M/ L 4.63-6.08 (test code = 761) HEMOGLOBIN (BEAKER) (test code = 15.3 GM/DL 13.7-17.5 410) HEMATOCRIT (BEAKER) (test code = 44.5 % 40.1-51.0 411) MEAN CORPUSCULAR VOLUME (BEAKER) 88.1 fL 79.0-92.2 (test code = 753) MEAN CORPUSCULAR HEMOGLOBIN 30.3 pg 25.7-32.2 (BEAKER) (test code = 751) MEAN CORPUSCULAR HEMOGLOBIN CONC 34.4 GM/DL 32.3-36.5 (BEAKER) (test code = 752) RED CELL DISTRIBUTION WIDTH 12.5 % 11.6-14.4 (BEAKER) (test code = 412) PLATELET COUNT (BEAKER) (test 198 K/CU MM 150-450 code = 756) MEAN PLATELET VOLUME (BEAKER) 11.0 fL 9.4-12.4 (test code = 754) NUCLEATED RED BLOOD CELLS 0 /100 WBC 0-0 (BEAKER) (test code = 413) NEUTROPHILS RELATIVE PERCENT 66 % (BEAKER) (test code = 429) LYMPHOCYTES RELATIVE PERCENT 23 % (BEAKER) (test code = 430) MONOCYTES RELATIVE PERCENT 10 % (BEAKER) (test code = 431) EOSINOPHILS RELATIVE PERCENT 0 % (BEAKER) (test code = 432) BASOPHILS RELATIVE PERCENT 0 % (BEAKER) (test code = 437) NEUTROPHILS ABSOLUTE COUNT 5.04 K/ L 1.78-5.38 (BEAKER) (test code = 670) LYMPHOCYTES ABSOLUTE COUNT 1.71 K/ L 1.32-3.57 (BEAKER) (test code = 414) MONOCYTES ABSOLUTE COUNT (BEAKER) 0.76 K/ L 0.30-0.82 (test code = 415) EOSINOPHILS ABSOLUTE COUNT 0.03 K/ L 0.04-0.54 L (BEAKER) (test code = 416) BASOPHILS ABSOLUTE COUNT (BEAKER) 0.02 K/ L 0.01-0.08 (test code = 417) IMMATURE GRANULOCYTES-RELATIVE 0 % 0-1 PERCENT (BEAKER) (test code = 2801) Tissue [id number] 15:58:55 Test Item Value Reference Range Interpretation Comments Case Report (test code Surgical Pathology = 104) Report Case: [id number] Authorizing Provider: Saleem Donald MD Collected: 01/02/2022 02:09 PM Ordering Location: [facility] [place] [facility] Received: 01/02/2022 03:50 PM Pathologist: Desirae Barros MD Specimen: Heart, [id number] DIAGNOSIS (test code = r9thpXYsMOJzm6ivOFRvvN 3220) FuZzEwMzNcZnRuYmpcdWMx IHtccnRmMVxlcGljOTYwMV yuurZbFBWdfPIuA6Zolblp ZWlsAL7kNY0scKvewCMyoR UzXVUvYqLqd6rku180cVTo s8jlBWTWlqpyiWt3hLukE0 7kx0U4XvunL21lqWXgHWL0 MMUnTTKvbDLvJQEgQPE3UR WqwHTjV7alXQNsPL6adban BMgaZLprCRBkyNC5ZHCcpJ QgA3BtDYZxRRqgNWOutzr7 XyTpNu6egCMfzUogHIuhLH SuYALxITddQMXeJnZqIU5i OZTPQgUcNFODV3eWHPEOCu UGYJMDEIhkLT2SQ68MG0VX UkRJQUwgQklPUFNZOiBccG XvTEIzToLrRH8gWn5wOXRK LQNQW3EtQ6UnNYYSHEQsP1 VKLBPROCGvYaOCYBNNBW6O LJfXG0oDSWOmTSixPMEoLW BSZCiEOLzXVQGPRCXzMT1v B5YYJKkWHQRZRVKrGpccVS 5ZCN6RDtpFQ2ONL3FSGpKX RAXqlq09OAM0GnKrr5H8UV Q9GIKzVDRoz9wxKXZixIUw ZzEwMzNcZnRuYmpcdWMxXG CtInZll1bkp938qIUbg4ne EAXzFxV1bXDtLMSpbLOiB5 46FPHaNNxoj1dqx5ZcZKJu vMNru0J3UJZPlqilbEt7bV dyC91sd4X5GiklE9peJAPg SLFqA2QjXE9tRPQfAkm4VO V6BFX1STJgRKZyY8OjXF7b GQVuyFUbVVv0k4xquOtyDX IaMFC7t6cdQDygscPePL2l an5fdDo4p6wftdZyBJOgWR WahOCFYGVkL4WziVkzGq1x tMu0sCiwJadhWEQ0Wkh1WH 8dii62lqa6mXrtSXYcjxlo GzG4YEdcGUZorcznDMy7KA kyGAJmcKE4UHNudITaF8Mh OPOkUF9hgbc7PNO2ZDqeVQ UyZzM1ADNqjHWiGCRfcBtz TQump566NJX0SkApOK7lW7 Pab4F6fH1izYNrSAMsbWJx ClUmTLHaig1rcPJhNQoxi6 JoZFP7fqW0nLAtiBFaPWFj RiJ9GEckDM8atl92WIMrNB D9gh2uuODaoSnvthUdjBEz NSjkC0XePDAsv051ATSkO5 ApENJfs1I7ciUfPqXqQFQm hIA7sgY2DDUbVU2smdtis2 fmAVhbZLxcJZTcywS9wwF3 PIZvvUOlA1OpnD1iAOFqGX 5zfjsqm6vxSTL8DPhaNAZv QUX8WtLpKHQzi9Lexub9Dr Rjr8QejGNzWRbjE19jf208 JIAwvgCdA2oamZAfrfmvxO SdcmrxIOxbjpH3XHIuSTmy aybrNFVpUEtbP4frMbYzFX WvnSunFYnot4FcEJEsAVEx LkTqcEWxFCXgMdm7IOJziZ GsVEGsDkAnJ0ltqusvHzGB DADwg8kzE3zccDZGxJVoA8 QgUGhvbmUgTGluZTogODMy YLN4JL1mTiW1AKWhwj42 COMMENT (test code = r2fnvGBjOCSyzIP0TbLgCM 3351) Vig3pzs3VjrHUzeEGmUUhp vDTjqjBjdx28eVD7rM95TP 8wKIAqPfU3GJPcziE6Pic5 OHTsTVMdyKJjL891y7jzj6 kbunGqxUS5kNguGAHhtvnc TtO7ZSyaUNZmffmlVKx6ZH ndCJBktNS9NSEndXFtK1Cp IDOzLS9sucu6NGU7FQiiSR VxBvT1GZPnaPYtMIAdeTwn LTptt279CFC9WlGeWKQuwi WvjIvmuL9uJiGoSWZYeMTv HkonCExbO7Qxo4SvDGGzAD TjyoHtJUZ6mrVbAYCufRU3 cwQve3YkOQ39UZQxi8RjkP 6igA9wMJ1cPTUgVY0kYERo LlxwYXJ9 CPT Code(s) (test code h1gqwFViCCXweCN3SjWaRI = 3359) Sjg4enr4SbqHJhoWUuFFed xZShjlIofk68nYH3mR99BZ 3pAQEwRtQ1JDLxvaS3Kqp7 MJYjEOFggGShG860v6jqi8 tzxhVomBU6dDopFVBdufqi OvT5YMdkGVSbudlmGFg2AA duUEKwgGS0TZQnkVRdR5Ih FVNnJC1nozl0KGD4TQtaWV ZkFhU0SBCciOBsJATtiFip WMzva279LRO8RfBwXSPqqc XaeSxgeZ1iQqYeRIU4YGQo NywgODgzNDZccGFyfQ== CLINICAL HISTORY (test s6mdeLZtRATmmUI2AbRbXE code = 3356) Okw3yzd5PhgTLvoJOzGSnv tFBrerOote04sGO9oF26WS 3tXQObUtR7OWXubiK3Gfs8 EPFjELVlsPRaE113v4jfj4 vnbzQnfQF8gYmrKZEosrny BfV9KJiaEAWirdkxHXf5MV loAOHczTO1JJAewCQtD4Il CIHmZG4bqkh4JOB8KIcoDX RaSyZ9CXWqwUZhZGAlvHmg HXmql119TJE6MrXkNITiqi WlyPdkhO1zFuUdKHLJUIUd bQD6cpAuf2KdLL53DMTrjh 0= SPECIMEN SOURCE (test t1qqvAQyLKBpwBK3JuBbPM code = 3377) Ttk8lwj7KylCWnmGTeRThj iSQkntSwtw44cHD3vV22WO 3hSHAoJkF0KGHwlcW8Kvw5 ZSUuXXPqlOOgC082o1icz8 llgvUkoIX0sKcgQXJoitrn BfO5BAhaUMPpdmzvBJu1RM ryUYIvlPU9NHWhgUHdA4Za EFGiIS3nynh9JMJ4OTzyCW QcRhW7TPXlgZIyUACimLpi JIvvx538EUS3GkQyOHNbfc YxkCzutD7kCxJnKIQOVFOj fQLnjVqwM9ThCnIghVLplO == GROSS DESCRIPTION (test f7mptPSoNPZomDV0MbSeSY code = [id number]) Zxq3ysq0MetKCmxMSdTVtn vLZfnwKgtb36xNT7cI29SR 0iDFJvFwC4AFXmzaV3Xya1 WJFlLYYfvNNjO528a4nbm2 uqmfIezNW2KHPbGZVdD9Qq OX4sDGHdkXFvD92xzTVfMO Z5LNCuMKXvmUSiSNJbWZN1 SVKatVSpQ1suRFLkPW7srx eoVRtcHHcbWHHqlLN2VDTf qMLuN2PbGIBwONyaIUPqut s5OdBlEm0foNJckKftMDfz DLSak9gsAIOivAQeUIB9RY fcuCTbDNBiLWUeQKh9TJCh WAjdbDXwYS7kiPdsBtcedB sjj6RjkEZdDBddULZgLMTl AViuJMEdX8PPFHJrDaN3OH C4JxEwOWo9LGf6PS1CLtGj JQUuDUXmHzh6BFHwNOs0MD wqYY1VVDV3LLF3QvVhFHV0 NTMyOCBcXHQgMiBcXGZsIF mqGzNSgvfwsZMeCL7beRko bGFpblxmczIwIEEuIEhlYX C1BifyDRAwKzKyFQpqEqCp XaEpDGf0AGDeGVFbLQDeO2 9udGFpbmVycyBsYWJlbGVk IHdpdGggdGhlIHBhdGllbn XlxjVtKP6tDDBwCDVqY0Ra QUFkU23eXRVkbT3hSLGsBE 5kICJoZWFydCIuXHBhciBS ANVfhFRjFZLihmWvf1CjXZ nksnHpoiZzXtP3JC5sFnDg d34xeUrxt0LeVONaAHkcJS 14gsieLD5wZTTfUTawDXnz LDO5GVE1QGPwyIBtz6eprv GdDUPkURV9yUjlySFkecHu p9PtuOx9bFSyUZipYKBskX 9wpT0kOWNqAzFIWKXoeSPo ZCBpbiBzYWxpbmUgImhlYX T9AYU4XPBaO36zd5wwxXYo g7GdUDJbWdKoW10wiUIrCY GdWuGeaGabk6YpDIBcKZmj ZV93ALlqnQUtGSybJSKha5 wdovLwq2VihJ4rtS9cShm4 o4WkA3NagKPjlILhuNFkBc xkUDYxJLYvIRAht6oeRE87 FGkuUXPfX5FpV3YlunD1w7 bidOtre2IfcHMoRI0aaJQi fQ== MICROSCOPIC DESCRIPTION l5absVVtDCMobAI2VdDzBL (test code = 3371) Zaf5muh8UnsTKbuZCfFVfo qDZoaiBsez79aQJ8pP42DL 3nIPGkDzK8HVVrnwJ6Wbv8 QPPpYNJmcDSwI924z0ngt1 xvftXbjIS7yJbjVEBxywie LwC9UKwoCQCupkahTWe6NM ylTHEtyAF6NHJdvJIwL2Ss IPCuLV6lwna0YRU3IMctNA HvIpR9OFNrxEPnWFRvbVig RKkie798RYC7BpZuBZAvxm FtvJchlS2eLuTkDFWDRVYa a1JdMWVmAHMvdw2= SPECIAL STUDIES (test x7vxdANzLNZdkDT0OzWeIM code = 3376) Guz0fgq4MmhJWmoTAkIFzy wPUovvXpch76nCF6sA31ZL 3jBJJiDsV5HLFiwbF3Oat9 JWBfWGEotAEgJ702YOFkBP YmxStfhmi8kA01VRVxwN7h dGJsIDtccmVkMFxncmVlbj SdJjy4IYU9dDheALGszina RhA4IRyyOFCzhkifHYd2OP duBPWomOL8QKNxtOJlV0Hx MPMeVR4jumr5MFD0RLzmYD AkZsM5GVEvtDZhNAWsbZtg EDdre363RNS1SpGfEBZwcg FolNjotC8pMxOaAiFpGvep ZjEgVGhlIGludGVycHJldG E5lN0tGH5bNCGrrUPiD9Vu DIDcklQrhJOhSWQ6vWQocK KeBV3cXYenqUCgf1rrn9Ps X5fhxIxhxOQ5DA8eCBIpDN CoRPmxs3ZmnX8lVggsZXLd WQHcUFiaoQUpw4PfkN1yIX EgNM4mGHPuzS2juA1dxutm cGFyIFRoZSBjYXBpbGxhcm llcyBhcmUgbmVnYXRpdmUg Is1xOMA3JD6eAEy0UYUgBM marQ8ucUCegyHgW09noIKh pFYikW04xsRybWOwmbfbw1 VbvT8zwrmhq1KrmB47MRDq wDh0fGEpHZYxdVopwLLncD NmBkzsHKOpdGQnLYZPy989 iu8hRNFnjNWvnrTTcQFewV 5lZDogIEluLWhvdXNlIGtu k5jxDOKhd9e3rDTdDJLrlj Jqa9okXTsoyyXnLOBwkPJc vLCaDLBgh34zHCmglIfuvM mfMYZpl6MymRbgh2IdJeVw JAgqt2VcW13nrQJhyFIavJ fmSJGsqvKbSGKiz86yu9ex LPOhNkA1wGBxgNG2hWRlzG Oas0FftHumCZIsj6aeQPAn pa8blpqhxIQej9NxzZ9vii blCHnjbYCdwoSaQWMcj8m7 qDXiUPDjXTWsBZxepSd1CP Yqf346fl2zxpM2yXQxERR7 YWlsYWJsZSBhcmUgZXZhbH VhdGVkXHBhciAgXHBhciBJ sZ46se7fvAN8z2GsRB5yo8 BzcGG4IRXogjzlJLjqgCOj nBbfVzZ5ZJOirBEoYf0adM YlDFZ3ORUfpIrgffTSuL5c YBTcEPr9MEJzWwKrPkxsjz LABWHgZ4BaZBVmocEqeifx ASW0lD7fv2i1AFprQa8kOD Hgtcuav0jmnfYssIUef9Om PJKdkzRjq3TiWAOtezGkqQ AzAXKyfyGbtd7yzbVeGPCl JVIrH7ZlcwfemMraqwL8VY JlIGRldGVybWluZWQuIEl0 FLnlalZls8JrKaUbfuSoaN IqzgHaFX2bXBTcqCXgyxQc EHX0OYHxAMUMLiEkACXsr5 UzTR4yTFJhrGtsZHLdgE0s j7HgGZYvy51mXWXmYIOMNW EgaGFzIGRldGVybWluZWQg dGhhdCBzdWNoIGNsZWFyYW 7zTFRpgiTctOWuf5JwtMJe jzZuu7PjqiKdZESyJAU9Hh TOfLWkqEMphIQokbA1y4Uq IGZvciBjbGluaWNhbCBwdX Bdt1Tvwh4tUZRov9nxkHbp EC4uoAHhABErVGpxgxBsBY FeotEiuxJnp6NrA9M9bG2x ZNlii0MxNz2dBNYdz8Yesx CuNmDCpXedFXuzGs5fJHWc waanvPMnU5PguRyznCXqTH VuZGVyIHRoZSBDbGluaWNh kCSRIXHookF5n1O2JVjhwY VrgrIsVX76BTKyJX4mgMGg aUVlt2RhHHf2OOMiQ9cXUX 04OCkgYXMgcXVhbGlmaWVk IJYgICCczmPkth5jeDzmhN Bxj39hrWK6jSC7UOFbwF2d F3ChCZjpQk3wDTWqlizzhM RqhFehRf5llCHuqW== Gross assessment was [facility] performed at ([facility], = 2777) Department of Pathology, [address] [place] [address], Technical component was [facility] performed at ([facility], = 2778) Department of Pathology, [address] [place] [address], Professional component [facility] was performed at ([facility], code = 2779) Department of Pathology, [address] [place] [address], [facility] [id number] 15:58:55Surgical Pathology Report Case: [id number] Authorizing Provider: Saleem Donald MD Collected: 01/02/2022 02:09 PM Ordering Location: [facility] Received: 01/02/2022 03:50 PM Pathologist:Desirae Barros MD Specimen: Heart, [id number] RVX3 A. HEART, RIGHT VENTRICLE, ENDOMYOCARDIAL BIOPSY: - NO EVIDENCE OF ACUTE CELLULAR REJECTION (ISHLT 0)- NEGATIVE C4D IN CAPILLARIES BY IMMUNOFLUORESCENCE Signing Pathologist Direct Phone Line: [phone] signed by Desirae Barros MD on 01/03/2022 at3:58 PMThe findings were reported to heart transaction coordinator on 01/03/2022.56904, [id number] transplantHeart allograftA. Heart.Received are 2 containers labeled with the patient's name, medical record number and "heart".Received in formalin are 2 troncoso-brown tissue fragments, 0.2 cm in greatest dimension each, which are submitted in toto in A1. Received in saline "heart C4D" consists of a 0.2 cm tansoft tissue fragment which is frozen for immunofluorecent studies.MP (resident)Performed.The interpretation of this case included the use of immunohistochemistry or special stains.A1. Immunofluorescence findings:The capillaries are negative for C4d. External positive control shows strong staining of interstitial capillaries.Control Slides Examined: In-house known positive controls were evaluated along with the test tissue. These control slides run alongside of the patients sample show appropriate staining. Internal positive and negative controls when available are evaluated Immunohistochemistry technical testing was performed at [facility], Pathology Laboratory where it was developed and its performance characteristics were determined. It has not been cleared or approved by the U.S. Food and Drug Administration. The FDA has determined that such clearance or approval is not necessary. The test is used for clinical purposes. It should not be regarded as investigational or for research. This laboratory is certified under the Clinical Laboratory Improvement Amendments of 1988(CLIA-88) as qualified to perform high complexity clinical laboratory testing.[facility], Department of Pathology, [address] [place] [address], [place] [address], [place], Department of Pathology, [address] [place] [address], [facility], Department of Pathology, [address] [place] [address], [id number] 13:40:14 Test Item Value Reference Range Interpretation Comments TACROLIMUS BLOOD 12.4 ng/mL 10.0-20.0 Test perfor med on [employer] ([employer]) (test code Architec t Immunoassay = 657) system with Chemiluminescen t Microparticle Immunoassay (CM IA) technology. Financial Aid Administrator ID - AAHAMIDSARS-CoV2/RT-PCR ([facility])2021-12-30 20:21:21 Test Item Value Reference Range Interpretation Comments SARS-COV2/RT-PCR Negative Not Detected, (test code = Negative, See 57709-1) external report for linked test SARS-COV-2 [facility] PERFORMING [facility] (test code = 70357-0) CHAZ (test code = Negative result for this CHAZ) test determines that SARS-CoV-2 RNA was not present in the specimen above the Limit of Detection (LOD). However, Negative results do not preclude SARS-CoV-2 infection and should not be used as the sole basis for treatment or patient management decisions. Negative results must be combined with clinical observations, patient history, and epidemiological information. A false negative result may occur if a specimen is improperly collected, transported or handled. A false negative result should be considered if patient's recent exposures or clinical presentation indicate that COVID-19 (SARS-CoV-2) is likely and diagnostic tests for other causes of illness are negative. Re-testing should be considered in cases of suspected false negatives. The limit of detection for this assay is 800 copies/mL. This SARS CoV-2 test is a real-time RT-PCR test intended for the qualitative detection of nucleic acid from SARS-CoV-2 in a nasopharyngeal swab specimen collected from individuals suspected of COVID-19 by their healthcare provider. This test has not been Food and Drug Administration (FDA) cleared or approved. This is a modified version of an approved Emergency Use Authorization (EUA) and is in the process of review by the FDA. Once authorized by the FDA, the issued EUA will be effective until the declaration that circumstances exist justifying the authorization of the emergency use of in vitro diagnostic tests for detection and/or diagnosis of COVID-19 is terminated under Section 564(b)(2) of the Act or the EUA is revoked under Section 564(g) of the Act. Fact Sheet for Healthcare Providers:https://www.[employer]/sites/default/f kaitlin/product/documents/F act_Sheet_HC_Providers_L gsb_GYAG-RkA-0.pdf Fact Sheet for Healthcare Patients:https://www.[employer]/sites/default/fi les/product/documents/Fa ct_Sheet_Patients_Lyra_S ARS-CoV-2.pdf Performing Laboratory:[facility], [place] [id number] [place], [place] [address]ARS-COV2/RT-PCR ([facility])2021-12-30 20:21:21 Test Item Value Reference Range Interpretation Comments SARS-COV2/RT-PCR (test Negative Not Detected, Negative, code = 1244673) See external report for linked test SARS-COV-2 PERFORMING LAB [facility] (test code = 4926733) Negative result for this test determines that SARS-CoV-2 RNA was not present in the specimen above the Limit of Detection (LOD). However, Negative results do not preclude SARS-CoV-2 infection and should not be used as the sole basis for treatment or patient management decisions. Negative results must be combined with clinical observations, patient history, and epidemiological information. A false negative result may occur if a specimen is improperly collected, transported or handled. A false negative result should be considered if patient's recent exposures or clinical presentation indicate that COVID-19 (SARS-CoV-2) is likely and diagnostic tests for other causes of illness are negative. Re-testing should be considered in cases of suspected false negatives.The limit of detection for this assay is 800 copies/mL.This SARS CoV-2 test is a real-time RT-PCR test intended for the qualitative detection of nucleic acid from SARS-CoV-2 in a nasopharyngeal swab specimen collected from individuals suspected of COVID-19 by their healthcare provider.This test has not been Food and Drug Administration (FDA) cleared or approved. This is a modified version of an approved Emergency Use Authorization (EUA) and is in the process of review by the FDA. Once authorized by the FDA, the issued EUA will be effective until the declaration that circumstances exist justifying the authorization of the emergency use ofin vitro diagnostic tests for detection and/or diagnosis of COVID-19 is terminated under Section 564(b)(2) of the Act or the EUA is revoked under Section 564(g) of the Act.Fact Sheet for Healthcare Prov iders:https://www.[employer]/sites/default/files/product/documents/Fact_Sheet_HC _Wftlyxlnp_Gatq_RCWK-TpJ-7.pdfFact Sheet for Healthcare Patients:https://www.[employer]/sites/default/files/product/docume nts/Pzzv_Cqags_Rjlqvgof_Cwfr_MWEQ-AuM-7.pdfPerforming Laboratory:[facility] [address] [place], [place] [address]HEIBIUZGIO LEVEL 2021-12-30 13:09:22 Test Item Value Reference Range Interpretation Comments TACROLIMUS BLOOD 16.0 ng/mL 10.0-20.0 Test perfor med on [employer] (BEAKER) (test code Architec t Immunoassay = 657) system with Chemiluminescen t Microparticle Immunoassay (CM IA) technology. Financial Aid Administrator ID - AAHAMIDCOMPREHENSIVE METABOLIC [id number] 12:28:04 Test Item Value Reference Range Interpretation Comments TOTAL PROTEIN 6.4 gm/dL 6.0-8.3 (BEAKER) (test code = 770) ALBUMIN (BEAKER) 3.9 g/dL 3.5-5.0 (test code = 1145) ALKALINE PHOSPHATASE 81 U/L 40-150 (BEAKER) (test code = 346) BILIRUBIN TOTAL 2.9 mg/dL 0.2-1.2 H (BEAKER) (test code = 377) SODIUM (BEAKER) (test 139 meq/L 136-145 code = 381) POTASSIUM (BEAKER) 3.8 meq/L 3.5-5.1 (test code = 379) CHLORIDE (BEAKER) 107 meq/L 98-107 (test code = 382) CO2 (BEAKER) (test 25 meq/L 22-29 code = 355) BLOOD UREA NITROGEN 10 mg/dL 7-21 (BEAKER) (test code = 354) CREATININE (BEAKER) 0.59 mg/dL 0.57-1.25 (test code = 358) GLUCOSE RANDOM 86 mg/dL 70-105 (BEAKER) (test code = 652) CALCIUM (BEAKER) 8.7 mg/dL 8.4-10.2 (test code = 697) AST (SGOT) (BEAKER) 218 U/L 5-34 H (test code = 353) ALT (SGPT) (BEAKER) 228 U/L 6-55 H (test code = 347) EGFR (BEAKER) (test 162 ESTIMATE D GFR IS code = 1092) mL/min/1.73 sq NOT ACCURA TE m CREATININE CLEARANCE IN PREDICTING GLOMERULAR FILTRATION RATE . ESTIMATED GFR I S NOT APPLICABLE FOR DIALYSIS PATIEN TS. Financial Aid Administrator ID - DBSpecimen slightly ictericCBC W/PLT COUNT & AUTO DIFFERENTIAL 2021-12-30 12:00:59 Test Item Value Reference Range Interpretation Comments WHITE BLOOD CELL COUNT (BEAKER) 4.2 K/ L 3.5-10.5 (test code = 775) RED BLOOD CELL COUNT (BEAKER) 4.73 M/ L 4.63-6.08 (test code = 761) HEMOGLOBIN (BEAKER) (test code = 14.2 GM/DL 13.7-17.5 410) HEMATOCRIT (BEAKER) (test code = 43.6 % 40.1-51.0 411) MEAN CORPUSCULAR VOLUME (BEAKER) 92.2 fL 79.0-92.2 (test code = 753) MEAN CORPUSCULAR HEMOGLOBIN 30.0 pg 25.7-32.2 (BEAKER) (test code = 751) MEAN CORPUSCULAR HEMOGLOBIN CONC 32.6 GM/DL 32.3-36.5 (BEAKER) (test code = 752) RED CELL DISTRIBUTION WIDTH 12.8 % 11.6-14.4 (BEAKER) (test code = 412) PLATELET COUNT (BEAKER) (test 197 K/CU MM 150-450 code = 756) MEAN PLATELET VOLUME (BEAKER) 11.5 fL 9.4-12.4 (test code = 754) NUCLEATED RED BLOOD CELLS 0 /100 WBC 0-0 (BEAKER) (test code = 413) NEUTROPHILS RELATIVE PERCENT 54 % (BEAKER) (test code = 429) LYMPHOCYTES RELATIVE PERCENT 34 % (BEAKER) (test code = 430) MONOCYTES RELATIVE PERCENT 11 % (BEAKER) (test code = 431) EOSINOPHILS RELATIVE PERCENT 0 % (BEAKER) (test code = 432) BASOPHILS RELATIVE PERCENT 0 % (BEAKER) (test code = 437) NEUTROPHILS ABSOLUTE COUNT 2.24 K/ L 1.78-5.38 (BEAKER) (test code = 670) LYMPHOCYTES ABSOLUTE COUNT 1.44 K/ L 1.32-3.57 (BEAKER) (test code = 414) MONOCYTES ABSOLUTE COUNT (BEAKER) 0.47 K/ L 0.30-0.82 (test code = 415) EOSINOPHILS ABSOLUTE COUNT 0.01 K/ L 0.04-0.54 L (BEAKER) (test code = 416) BASOPHILS ABSOLUTE COUNT (BEAKER) 0.01 K/ L 0.01-0.08 (test code = 417) IMMATURE GRANULOCYTES-RELATIVE 0 % 0-1 PERCENT (BEAKER) (test code = 2801) Stress Echo With [id number] 12:19:41Ejection FractionSLEH ECHO HEARTLAB [facility] w/ doppler (cw/pw/color) 2021-12-23 12:05:24[facility]2021-12-23 08:55:44 Test Item Value Reference Range Interpretation Comments SARS-COV2/RT-PCR Negative Negative The SARS-Co V-2 target (test code = nucleic acids a re not [id number]) detected in thi s specimen. Negative result s do not preclude SARS-C oV-2 infection and s hould not be used as the rosaura e basis for patient managem ent decisions. Nega tive results must be combine d with clinical observ ations, patient history , and epidemiological information. A false negativ e result may occur if a spec imen is improperly ju ected, transported or handled. This SARS CoV-2 test is a rapid, real-time RT-PC R test intended for th e qualitative detection of nu cleic acid from SARS-CoV-2 in a nasopharyngeal swab specimen collected from individuals suspected of CO VID-19 by their healthcar e provider. This test has been authorized by FDA under an EUA for use by authorized laboratories. This test is only authorized for the duration of the declaration that circumstances exist justifying the authorization of emergency use of in vitro diagnostic tests for detection and/or diagnosis of COVID-19 under Section 564(b)(1) of the Federal Food, Drug and Cosmetic Act, 21 U.S.C. 360bbb-3(b)(1), unless the authorization is terminated or revoked sooner. Fact Sheet for Healthcare Providers: https://www.[employer]/Documents/Xpert%20Xpress%20SARS%20CoV-2/Fact%20Sheets/302-3802%79CUAT-OXX-9%20 HEALTHCARE%20PROVIDERS%20FACT%20SHEET.pdf Fact Sheet for Healthcare Patients: https://www.[employer]/Documents/Xpert%20Xp ress%20SARS%20CoV-2/Fact%20Sheets/3023801%54XULJ-YZY-2%20PATIENT%20FACT%20SHEET .pdfTACROLIMUS [id number] 12:38:46 Test Item Value Reference Range Interpretation Comments TACROLIMUS BLOOD 3.6 ng/mL 10.0-20.0 L Test perfor med on [employer]) (test code Architec t Immunoassay = 657) system with Chemiluminescen t Microparticle I mmunoassay (CMIA) technolo gy. Financial Aid Administrator ID - ADMINRAD, CHEST, 2 [id number] 12:10:00DR SOODReferring: Dr. Yee Wynne for Exam:->[facility] : 1990 Sex: MFINAL REPORT INDICATION: Heart transplant annual COMPARISON: 10/15/2020 TECHNIQUE: AP and lateral view of the chest. 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 No effusion.Heart and mediastinum: Normal heart size. Unremarkable mediastinal contours.Osseous structures: No acute abnormality.Other: Postoperative changes from heart transplant. IMPRESSION: No acute intrathoracic abnormality. Signed: Mariia Lozano MDReport Verified Date/Time: 12/16/2021 12:10:26 Reading Location: [facility] Radiology Reading Room Lipid [id number] 11:14:23 Test Item Value Reference Range Interpretation Comments Triglycerides (test 68 mg/dL code = 2571-8) Cholesterol (test code 151 mg/dL = 3-3) HDL (test code = 46 mg/dL 2084-9) LDL Calculated (test 91 mg/dL code = 18837-3) CHAZ (test code = CHAZ) Triglyceride Reference Range: Low Risk <150 Borderline 150-199 High Risk 200-499 Very High Risk >=500 Cholesterol Reference Range: Low Risk <200 Borderline 200-239 High Risk >240 HDL Cholesterol Reference Range: Low Risk >=60 High Risk <40 LDL Cholesterol Reference Range: Optimal <100 Near Optimal 100-129 Borderline 130-159 High 160-189 Very High >=190 Financial Aid Administrator ID - DBSpecimen moderately icteric [facility] [id number] 11:14:23 Test Item Value Reference Range Interpretation Comments SODIUM (BEAKER) 138 meq/L 136-145 (test code = 381) POTASSIUM (BEAKER) 4.9 meq/L 3.5-5.1 (test code = 379) CHLORIDE (BEAKER) 105 meq/L 98-107 (test code = 382) CO2 (BEAKER) (test 26 meq/L 22-29 code = 355) BLOOD UREA NITROGEN 10 mg/dL 7-21 (BEAKER) (test code = 354) CREATININE (BEAKER) 0.57 mg/dL 0.57-1.25 (test code = 358) GLUCOSE RANDOM 91 mg/dL 70-105 (BEAKER) (test code = 652) CALCIUM (BEAKER) 9.2 mg/dL 8.4-10.2 (test code = 697) EGFR (BEAKER) (test 169 mL/min/1.73 ESTIM ATED GFR IS code = 1092) sq m NOT ACCURATE CREATININE CLEARANCE IN PREDICTING GLOMERULAR FILTRATION RATE . ESTIMATED GFR I S NOT APPLICABLE FOR DIALYSIS PATIEN TS. Financial Aid Administrator ID - DBSpecimen moderately ictericLIPID [id number] 11:14:23 Test Item Value Reference Range Interpretation Comments TRIGLYCERIDES (BEAKER) (test code = 68 mg/dL 540) CHOLESTEROL (BEAKER) (test code = 151 mg/dL 631) HDL CHOLESTEROL (BEAKER) (test code 46 mg/dL = 976) LDL CHOLESTEROL CALCULATED (BEAKER) 91 mg/dL (test code = 633) Triglyceride Reference Range: Low Risk <150 Borderline 150-199 High Risk 200-499 Very High Risk >=500Cholesterol Reference Range: Low Risk <200 Borderline 200-239 High Risk >240HDL Cholesterol Reference Range: Low Risk >=60 High Risk <40LDL Cholesterol Reference Range: Optimal <100 Near Optimal 100-129 Borderline 130-159 High 160-189 Very High >=190 Financial Aid Administrator ID - DBSpecimen moderately ictericHEPATIC FUNCTION [id number] 11:14:23 Test Item Value Reference Range Interpretation Comments TOTAL PROTEIN (BEAKER) (test code = 7.2 gm/dL 6.0-8.3 770) ALBUMIN (BEAKER) (test code = 1145) 4.3 g/dL 3.5-5.0 BILIRUBIN TOTAL (BEAKER) (test code 4.1 mg/dL 0.2-1.2 H = 377) BILIRUBIN DIRECT (BEAKER) (test 0.4 mg/dL 0.1-0.5 code = 706) ALKALINE PHOSPHATASE (BEAKER) (test 78 U/L 40-150 code = 346) AST (SGOT) (BEAKER) (test code = 264 U/L 5-34 H 353) ALT (SGPT) (BEAKER) (test code = 289 U/L 6-55 H 347) Financial Aid Administrator ID - DBSpecimen moderately ictericCBC W/PLT COUNT & AUTO [id number] 10:54:14 Test Item Value Reference Range Interpretation Comments WHITE BLOOD CELL COUNT (BEAKER) 4.3 K/ L 3.5-10.5 (test code = 775) RED BLOOD CELL COUNT (BEAKER) 5.50 M/ L 4.63-6.08 (test code = 761) HEMOGLOBIN (BEAKER) (test code = 16.6 GM/DL 13.7-17.5 410) HEMATOCRIT (BEAKER) (test code = 48.9 % 40.1-51.0 411) MEAN CORPUSCULAR VOLUME (BEAKER) 88.9 fL 79.0-92.2 (test code = 753) MEAN CORPUSCULAR HEMOGLOBIN 30.2 pg 25.7-32.2 (BEAKER) (test code = 751) MEAN CORPUSCULAR HEMOGLOBIN CONC 33.9 GM/DL 32.3-36.5 (BEAKER) (test code = 752) RED CELL DISTRIBUTION WIDTH 12.7 % 11.6-14.4 (BEAKER) (test code = 412) PLATELET COUNT (BEAKER) (test 201 K/CU MM 150-450 code = 756) MEAN PLATELET VOLUME (BEAKER) 10.8 fL 9.4-12.4 (test code = 754) NUCLEATED RED BLOOD CELLS 0 /100 WBC 0-0 (BEAKER) (test code = 413) NEUTROPHILS RELATIVE PERCENT 55 % (BEAKER) (test code = 429) LYMPHOCYTES RELATIVE PERCENT 32 % (BEAKER) (test code = 430) MONOCYTES RELATIVE PERCENT 12 % (BEAKER) (test code = 431) EOSINOPHILS RELATIVE PERCENT 1 % (BEAKER) (test code = 432) BASOPHILS RELATIVE PERCENT 1 % (BEAKER) (test code = 437) NEUTROPHILS ABSOLUTE COUNT 2.39 K/ L 1.78-5.38 (BEAKER) (test code = 670) LYMPHOCYTES ABSOLUTE COUNT 1.38 K/ L 1.32-3.57 (BEAKER) (test code = 414) MONOCYTES ABSOLUTE COUNT (BEAKER) 0.50 K/ L 0.30-0.82 (test code = 415) EOSINOPHILS ABSOLUTE COUNT 0.04 K/ L 0.04-0.54 (BEAKER) (test code = 416) BASOPHILS ABSOLUTE COUNT (BEAKER) 0.02 K/ L 0.01-0.08 (test code = 417) IMMATURE GRANULOCYTES-RELATIVE 0 % 0-1 PERCENT (BEAKER) (test code = 2801) HEPATIC FUNCTION [id number] 12:54:32 Test Item Value Reference Range Interpretation Comments TOTAL PROTEIN (BEAKER) (test code = 7.4 gm/dL 6.0-8.3 770) ALBUMIN (BEAKER) (test code = 1145) 4.5 g/dL 3.5-5.0 BILIRUBIN TOTAL (BEAKER) (test code 3.8 mg/dL 0.2-1.2 H = 377) BILIRUBIN DIRECT (BEAKER) (test 0.4 mg/dL 0.1-0.5 code = 706) ALKALINE PHOSPHATASE (BEAKER) (test 73 U/L 40-150 code = 346) AST (SGOT) (BEAKER) (test code = 290 U/L 5-34 H 353) ALT (SGPT) (BEAKER) (test code = 293 U/L 6-55 H 347) Financial Aid Administrator ID - LUZ ELENASONSpecimen moderately ictericTACROLIMUS [id number] 08:45:00 Test Item Value Reference Range Interpretation Comments TACROLIMUS BLOOD 3.9 ng/mL 10.0-20.0 L Test perfor med on [employer] (BEAKER) (test code Architec t Immunoassay = 657) system with Chemiluminescen t Microparticle I mmunoassay (CMIA) technolo gy. Financial Aid Administrator ID - VINI MCKEEBASIC METABOLIC [id number] 13:25:00 Test Item Value Reference Range Interpretation Comments SODIUM (BEAKER) 139 meq/L 136-145 (test code = 381) POTASSIUM (BEAKER) 3.6 meq/L 3.5-5.1 (test code = 379) CHLORIDE (BEAKER) 107 meq/L 98-107 (test code = 382) CO2 (BEAKER) (test 23 meq/L 22-29 code = 355) BLOOD UREA NITROGEN 5 mg/dL 7-21 L (BEAKER) (test code = 354) CREATININE (BEAKER) 0.52 mg/dL 0.57-1.25 L (test code = 358) GLUCOSE RANDOM 88 mg/dL 70-105 (BEAKER) (test code = 652) CALCIUM (BEAKER) 9.1 mg/dL 8.4-10.2 (test code = 697) EGFR (BEAKER) (test 189 mL/min/1.73 ESTIM ATED GFR IS code = 1092) sq m NOT ACCURATE CREATININE CLEARANCE IN PREDICTING GLOMERULAR FILTRATION RATE . ESTIMATED GFR I S NOT APPLICABLE FOR DIALYSIS PATIEN TS. Financial Aid Administrator ID - PIAYA LSpecimen slightly ictericCBC W/PLT COUNT & AUTO [id number] 12:54:00 Test Item Value Reference Range Interpretation Comments WHITE BLOOD CELL COUNT (BEAKER) 4.1 K/ L 3.5-10.5 (test code = 775) RED BLOOD CELL COUNT (BEAKER) 5.09 M/ L 4.63-6.08 (test code = 761) HEMOGLOBIN (BEAKER) (test code = 15.4 GM/DL 13.7-17.5 410) HEMATOCRIT (BEAKER) (test code = 44.9 % 40.1-51.0 411) MEAN CORPUSCULAR VOLUME (BEAKER) 88.2 fL 79.0-92.2 (test code = 753) MEAN CORPUSCULAR HEMOGLOBIN 30.3 pg 25.7-32.2 (BEAKER) (test code = 751) MEAN CORPUSCULAR HEMOGLOBIN CONC 34.3 GM/DL 32.3-36.5 (BEAKER) (test code = 752) RED CELL DISTRIBUTION WIDTH 12.7 % 11.6-14.4 (BEAKER) (test code = 412) PLATELET COUNT (BEAKER) (test 196 K/CU MM 150-450 code = 756) MEAN PLATELET VOLUME (BEAKER) 10.8 fL 9.4-12.4 (test code = 754) NUCLEATED RED BLOOD CELLS 0 /100 WBC 0-0 (BEAKER) (test code = 413) NEUTROPHILS RELATIVE PERCENT 57 % (BEAKER) (test code = 429) LYMPHOCYTES RELATIVE PERCENT 30 % (BEAKER) (test code = 430) MONOCYTES RELATIVE PERCENT 13 % (BEAKER) (test code = 431) EOSINOPHILS RELATIVE PERCENT 1 % (BEAKER) (test code = 432) BASOPHILS RELATIVE PERCENT 0 % (BEAKER) (test code = 437) NEUTROPHILS ABSOLUTE COUNT 2.31 K/ L 1.78-5.38 (BEAKER) (test code = 670) LYMPHOCYTES ABSOLUTE COUNT 1.24 K/ L 1.32-3.57 L (BEAKER) (test code = 414) MONOCYTES ABSOLUTE COUNT (BEAKER) 0.51 K/ L 0.30-0.82 (test code = 415) EOSINOPHILS ABSOLUTE COUNT 0.02 K/ L 0.04-0.54 L (BEAKER) (test code = 416) BASOPHILS ABSOLUTE COUNT (BEAKER) 0.01 K/ L 0.01-0.08 (test code = 417) IMMATURE GRANULOCYTES-RELATIVE 0 % 0-1 PERCENT (BEAKER) (test code = 2801) MISCELLANEOUS LAB [id number] 07:39:00 Test Item Value Reference Range Interpretation Comments SCAN RESULT (test code = 3274925) See scanned reportCOMPREHENSIVE METABOLIC [id number] 13:03:00 Test Item Value Reference Range Interpretation Comments TOTAL PROTEIN 7.3 gm/dL 6.0-8.3 (BEAKER) (test code = 770) ALBUMIN (BEAKER) 4.4 g/dL 3.5-5.0 (test code = 1145) ALKALINE PHOSPHATASE 71 U/L 40-150 (BEAKER) (test code = 346) BILIRUBIN TOTAL 3.5 mg/dL 0.2-1.2 H (BEAKER) (test code = 377) SODIUM (BEAKER) (test 142 meq/L 136-145 code = 381) POTASSIUM (BEAKER) 4.1 meq/L 3.5-5.1 (test code = 379) CHLORIDE (BEAKER) 106 meq/L 98-107 (test code = 382) CO2 (BEAKER) (test 28 meq/L 22-29 code = 355) BLOOD UREA NITROGEN 10 mg/dL 7-21 (BEAKER) (test code = 354) CREATININE (BEAKER) 0.57 mg/dL 0.57-1.25 (test code = 358) GLUCOSE RANDOM 81 mg/dL 70-105 (BEAKER) (test code = 652) CALCIUM (BEAKER) 9.0 mg/dL 8.4-10.2 (test code = 697) AST (SGOT) (BEAKER) 344 U/L 5-34 H (test code = 353) ALT (SGPT) (BEAKER) 367 U/L 6-55 H (test code = 347) EGFR (BEAKER) (test 170 ESTIMATE D GFR IS code = 1092) mL/min/1.73 sq NOT ACCURA TE m CREATININE CLEARANCE IN PREDICTING GLOMERULAR FILTRATION RATE . ESTIMATED GFR I S NOT APPLICABLE FOR DIALYSIS PATIEN TS. Financial Aid Administrator ID - JUNIOR CSpecimen slightly ictericTACROLIMUS [id number] 12:48:00 Test Item Value Reference Range Interpretation Comments TACROLIMUS BLOOD 9.7 ng/mL 10.0-20.0 L Test perfor med on [employer] (BEAKER) (test code Architec t Immunoassay = 657) system with Chemiluminescen t Microparticle I mmunoassay (CMIA) technolo gy. Financial Aid Administrator ID - AAHAMIDCBC W/PLT COUNT & AUTO [id number] 12:42:00 Test Item Value Reference Range Interpretation Comments WHITE BLOOD CELL COUNT (BEAKER) 4.3 K/ L 3.5-10.5 (test code = 775) RED BLOOD CELL COUNT (BEAKER) 5.29 M/ L 4.63-6.08 (test code = 761) HEMOGLOBIN (BEAKER) (test code = 15.9 GM/DL 13.7-17.5 410) HEMATOCRIT (BEAKER) (test code = 47.5 % 40.1-51.0 411) MEAN CORPUSCULAR VOLUME (BEAKER) 89.8 fL 79.0-92.2 (test code = 753) MEAN CORPUSCULAR HEMOGLOBIN 30.1 pg 25.7-32.2 (BEAKER) (test code = 751) MEAN CORPUSCULAR HEMOGLOBIN CONC 33.5 GM/DL 32.3-36.5 (BEAKER) (test code = 752) RED CELL DISTRIBUTION WIDTH 12.5 % 11.6-14.4 (BEAKER) (test code = 412) PLATELET COUNT (BEAKER) (test 203 K/CU MM 150-450 code = 756) MEAN PLATELET VOLUME (BEAKER) 11.3 fL 9.4-12.4 (test code = 754) NUCLEATED RED BLOOD CELLS 0 /100 WBC 0-0 (BEAKER) (test code = 413) NEUTROPHILS RELATIVE PERCENT 55 % (BEAKER) (test code = 429) LYMPHOCYTES RELATIVE PERCENT 32 % (BEAKER) (test code = 430) MONOCYTES RELATIVE PERCENT 12 % (BEAKER) (test code = 431) EOSINOPHILS RELATIVE PERCENT 1 % (BEAKER) (test code = 432) BASOPHILS RELATIVE PERCENT 1 % (BEAKER) (test code = 437) NEUTROPHILS ABSOLUTE COUNT 2.37 K/ L 1.78-5.38 (BEAKER) (test code = 670) LYMPHOCYTES ABSOLUTE COUNT 1.37 K/ L 1.32-3.57 (BEAKER) (test code = 414) MONOCYTES ABSOLUTE COUNT (BEAKER) 0.54 K/ L 0.30-0.82 (test code = 415) EOSINOPHILS ABSOLUTE COUNT 0.03 K/ L 0.04-0.54 L (BEAKER) (test code = 416) BASOPHILS ABSOLUTE COUNT (BEAKER) 0.02 K/ L 0.01-0.08 (test code = 417) IMMATURE GRANULOCYTES-RELATIVE 0 % 0-1 PERCENT (BEAKER) (test code = 2801) CBC W/PLT COUNT & AUTO [id number] 11:44:00 Test Item Value Reference Range Interpretation Comments WHITE BLOOD CELL COUNT (BEAKER) 5.3 K/ L 3.5-10.5 (test code = 775) RED BLOOD CELL COUNT (BEAKER) 5.01 M/ L 4.63-6.08 (test code = 761) HEMOGLOBIN (BEAKER) (test code = 15.1 GM/DL 13.7-17.5 410) HEMATOCRIT (BEAKER) (test code = 44.5 % 40.1-51.0 411) MEAN CORPUSCULAR VOLUME (BEAKER) 88.8 fL 79.0-92.2 (test code = 753) MEAN CORPUSCULAR HEMOGLOBIN 30.1 pg 25.7-32.2 (BEAKER) (test code = 751) MEAN CORPUSCULAR HEMOGLOBIN CONC 33.9 GM/DL 32.3-36.5 (BEAKER) (test code = 752) RED CELL DISTRIBUTION WIDTH 12.4 % 11.6-14.4 (BEAKER) (test code = 412) PLATELET COUNT (BEAKER) (test 197 K/CU MM 150-450 code = 756) MEAN PLATELET VOLUME (BEAKER) 10.6 fL 9.4-12.4 (test code = 754) NUCLEATED RED BLOOD CELLS 0 /100 WBC 0-0 (BEAKER) (test code = 413) NEUTROPHILS RELATIVE PERCENT 53 % (BEAKER) (test code = 429) LYMPHOCYTES RELATIVE PERCENT 34 % (BEAKER) (test code = 430) MONOCYTES RELATIVE PERCENT 12 % (BEAKER) (test code = 431) EOSINOPHILS RELATIVE PERCENT 1 % (BEAKER) (test code = 432) BASOPHILS RELATIVE PERCENT 0 % (BEAKER) (test code = 437) NEUTROPHILS ABSOLUTE COUNT 2.79 K/ L 1.78-5.38 (BEAKER) (test code = 670) LYMPHOCYTES ABSOLUTE COUNT 1.82 K/ L 1.32-3.57 (BEAKER) (test code = 414) MONOCYTES ABSOLUTE COUNT (BEAKER) 0.64 K/ L 0.30-0.82 (test code = 415) EOSINOPHILS ABSOLUTE COUNT 0.03 K/ L 0.04-0.54 L (BEAKER) (test code = 416) BASOPHILS ABSOLUTE COUNT (BEAKER) 0.02 K/ L 0.01-0.08 (test code = 417) IMMATURE GRANULOCYTES-RELATIVE 0 % 0-1 PERCENT (BEAKER) (test code = 2801) U/S, ABDOMINAL, [id number] 15:12:00Referring: Dr. Yee Ayala include elastographyReason for Exam:->elevated liver enzymes s/p [facility]nplant[facility] ROSI JONESAlejandra BANUELOS : 1990 Sex: MFINAL REPORT U/S, ABDOMINAL, COMPLETE CLINICAL HISTORY: elevated liver enzymes s/p heart transplant COMPARISON: 06/10/2019 abdominal ultrasound TECHNIQUE: Real time grayscale and color Doppler images of the abdominal organs were obtained using a curved transducer. FINDINGS: Pancreas: Partially visualized and unremarkable. Liver: Normal in size and homogeneous in echogenicity. Focal liver lesions: None. Portal vein: Normal, hepatopetal flow. The main portal vein is at the upper limits of normal in diameter. Bile ducts: Normal in caliber. Gallbladder: Normally distended with no gallstones, gallbladder wall thickening, or sonographic Gunn's sign. Kidneys: Normal in size with normal cortical thickness and echogenicity. No hydronephrosis. Hyperechoic renal foci bilaterally, whichmay represent nonobstructing renal stones, measuring up to 11 mm at the right lower pole and 11 mm at the left upper pole. Spleen: Normal in size. Ascites: None in the upper abdomen. Visualized aorta and IVC: Unremarkable. MEASUREMENTS:Liver: 14.1 cm Common Duct: 3 mm Right Kidney: 9.6 cm Left Kidney:11.6 cmSpleen: 9.6 cm Maximum Diameter Aorta: 1.8 cm SHEAR WAVE LIVER STIFFNESS MEASUREMENTS: Mean 1.1 + / -0.47 m/secMedian 1.1 m/sec IMPRESSION: 1. Normal sonographic appearance of the liver with no evidence of diffuse liver disease or focal liver lesions. 2. Liver elastography assessment: High probability of being normal. * 3. Hyperechoic foci within the renal collecting systems bilaterally suggesting nonobstructive renal calculi. No hydronephrosis. *Aimee Lloyd Et al. Update to the Society of Radiol ogists in Ultrasound Liver Elastography Consensus Statement. Radiology. May 2020. Signed: Grady Kitchen [facility] Verified Date/Time: 11/26/2020 15:12:11 TISSUE [id number] 11:12:00Surgical Pathology Report Case: [id number] Authorizing Provider: Saleem Donald MD Collected: 11/10/2020 10:42 AM Ordering Location: [facility] [place] [facility] Received: 11/10/2020 03:08 PM Pathologist: Clarence Murillo MD Specimen: Heart, C4D x1 in NS; RV x1-4 in formalin HEART, RIGHT VENTRICLE, ENDOMYOCARDIAL BIOPSY:MILD ACUTE CELLULAR REJECTION (ISHLT 1R)C4D IMMUNOFLUORESCENCE STAINING IS NEGATIVE (AMR 0) Signing Pathologist Direct Phone Line: [phone] signed by Clarence Murillo MD on 11/12/2020 at 11:12 AMPreliminary result electronically signed by Clarence Murillo MD on 11/11/2020 at 8:34 AMThe preliminary results are reported to the heart transaction coordinator on 11/11/20 at 8:22 am. The final results were repored to the heart transaction coordinator on 11/12/20 at 10:43 am. [id number]; [id number] transplantA. Right ventricleReceived are 2 containers labeled with the patient's name, accession number and "heart".Received in saline is a 0.3 x 0.2 x 0.2 cm troncoso soft tissue fragment which is entirely frozen for C4D studies.Received in formalin are 2 troncoso soft tissue fragments measuring up to 0.3 cm in greatest dimension, which are filtered and submitted in toto in A1.Karolina Naik M.D. (Pathology Resident) PerformedThe interpretation of this case included the use of immunohistochemistry or special stains.Control Slides Examined: In-house known positive controls were evaluated along with the test tissue. These control slides run alongside of the patients sample show appropriate staining. Internal positive and negative controls when available are evaluated Immunohistochemistry technical testing was performed at [facility], Pathology Laboratory where it was developed and its performance characteristics were determined. It has not been cleared or approvedby the U.S. Food and Drug Administration. The FDA has determined that such clearance or approval is not necessary. The test is used for clinical purposes. It should not be regarded as investigational or for research. This laboratory is certified under the Clinical Laboratory Improvement Amendments of 1988 (CLIA-88) as qualified to perform high complexity clinical laboratory testing.TACROLIMUS [id number] 11:58:00 Test Item Value Reference Range Interpretation Comments TACROLIMUS BLOOD 11.2 ng/mL 10.0-20.0 Test perfor med on Stringer (BEAKER) (test code Architec t Immunoassay = 657) system with Chemiluminescen t Microparticle Immunoassay (CM IA) technology. Financial Aid Administrator ID - aahamidBASIC METABOLIC [id number] 10:35:00 Test Item Value Reference Range Interpretation Comments SODIUM (BEAKER) 140 meq/L 136-145 (test code = 381) POTASSIUM (BEAKER) 4.5 meq/L 3.5-5.1 (test code = 379) CHLORIDE (BEAKER) 105 meq/L 98-107 (test code = 382) CO2 (BEAKER) (test 30 meq/L 22-29 H code = 355) BLOOD UREA NITROGEN 7 mg/dL 7-21 (BEAKER) (test code = 354) CREATININE (BEAKER) 0.58 mg/dL 0.57-1.25 (test code = 358) GLUCOSE RANDOM 97 mg/dL 70-105 (BEAKER) (test code = 652) CALCIUM (BEAKER) 9.2 mg/dL 8.4-10.2 (test code = 697) EGFR (BEAKER) (test 167 mL/min/1.73 ESTIM ATED GFR IS code = 1092) sq m NOT ACCURATE CREATININE CLEARANCE IN PREDICTING GLOMERULAR FILTRATION RATE . ESTIMATED GFR I S NOT APPLICABLE FOR DIALYSIS PATIEN TS. Financial Aid Administrator ID - EDASISpecimen slightly ictericHEPATIC FUNCTION [id number] 10:35:00 Test Item Value Reference Range Interpretation Comments TOTAL PROTEIN (BEAKER) (test code = 7.3 gm/dL 6.0-8.3 770) ALBUMIN (BEAKER) (test code = 1145) 4.5 g/dL 3.5-5.0 BILIRUBIN TOTAL (BEAKER) (test code 2.8 mg/dL 0.2-1.2 H = 377) BILIRUBIN DIRECT (BEAKER) (test 0.7 mg/dL 0.1-0.5 H code = 706) ALKALINE PHOSPHATASE (BEAKER) (test 71 U/L 40-150 code = 346) AST (SGOT) (BEAKER) (test code = 329 U/L 5-34 H 353) ALT (SGPT) (BEAKER) (test code = 325 U/L 6-55 H 347) Financial Aid Administrator ID - EDASISpecimen slightly ictericCBC W/PLT COUNT & AUTO [id number] 10:18:00 Test Item Value Reference Range Interpretation Comments WHITE BLOOD CELL COUNT (BEAKER) 4.5 K/ L 3.5-10.5 (test code = 775) RED BLOOD CELL COUNT (BEAKER) 5.18 M/ L 4.63-6.08 (test code = 761) HEMOGLOBIN (BEAKER) (test code = 16.2 GM/DL 13.7-17.5 410) HEMATOCRIT (BEAKER) (test code = 45.8 % 40.1-51.0 411) MEAN CORPUSCULAR VOLUME (BEAKER) 88.4 fL 79.0-92.2 (test code = 753) MEAN CORPUSCULAR HEMOGLOBIN 31.3 pg 25.7-32.2 (BEAKER) (test code = 751) MEAN CORPUSCULAR HEMOGLOBIN CONC 35.4 GM/DL 32.3-36.5 (BEAKER) (test code = 752) RED CELL DISTRIBUTION WIDTH 12.2 % 11.6-14.4 (BEAKER) (test code = 412) PLATELET COUNT (BEAKER) (test 186 K/CU MM 150-450 code = 756) MEAN PLATELET VOLUME (BEAKER) 10.8 fL 9.4-12.4 (test code = 754) NUCLEATED RED BLOOD CELLS 0 /100 WBC 0-0 (BEAKER) (test code = 413) NEUTROPHILS RELATIVE PERCENT 50 % (BEAKER) (test code = 429) LYMPHOCYTES RELATIVE PERCENT 38 % (BEAKER) (test code = 430) MONOCYTES RELATIVE PERCENT 11 % (BEAKER) (test code = 431) EOSINOPHILS RELATIVE PERCENT 1 % (BEAKER) (test code = 432) BASOPHILS RELATIVE PERCENT 0 % (BEAKER) (test code = 437) NEUTROPHILS ABSOLUTE COUNT 2.23 K/ L 1.78-5.38 (BEAKER) (test code = 670) LYMPHOCYTES ABSOLUTE COUNT 1.72 K/ L 1.32-3.57 (BEAKER) (test code = 414) MONOCYTES ABSOLUTE COUNT (BEAKER) 0.47 K/ L 0.30-0.82 (test code = 415) EOSINOPHILS ABSOLUTE COUNT 0.03 K/ L 0.04-0.54 L (BEAKER) (test code = 416) BASOPHILS ABSOLUTE COUNT (BEAKER) 0.01 K/ L 0.01-0.08 (test code = 417) IMMATURE GRANULOCYTES-RELATIVE 0 % 0-1 PERCENT (BEAKER) (test code = 2801) SARS-COV2/RT-PCR ([facility])2020-11-09 14:14:00 Test Item Value Reference Range Interpretation Comments SARS-COV2/RT-PCR (test Negative Not Detected, Negative, code = 7040737) See external report for linked test SARS-COV-2 PERFORMING LAB [facility] (test code = 0189969) Negative result for this test determines that SARS-CoV-2 RNA was not present in the specimen above the Limit of Detection (LOD). However, Negative results do not preclude SARS-CoV-2 infection and should not be used as the sole basis for treatment or patient management decisions. Negative results must be combined with clinical observations, patient history, and epidemiological information. A false negative result may occur if a specimen is improperly collected, transported or handled. A false negative result should be considered if patient's recent exposures or clinical presentation indicate that COVID-19 (SARS-CoV-2) is likely and diagnostic tests for other causes of illness are negative. Re-testing should be considered in cases of suspected false negatives.The limit of detection for this assay is 800 copies/mL.This SARS CoV-2 test is a real-time RT-PCR test intended for the qualitative detection of nucleic acid from SARS-CoV-2 in a nasopharyngeal swab specimen collected from individuals suspected of COVID-19 by their healthcare provider.This test has not been Food and Drug Administration (FDA) cleared or approved. This is a modified version of an approved Emergency Use Authorization (EUA) and is in the process of review by the FDA. Once authorized by the FDA, the issued EUA will be effective until the declaration that circumstances exist justifying the authorization of the emergency use ofin vitro diagnostic tests for detection and/or diagnosis of COVID-19 is terminated under Section 564(b)(2) of the Act or the EUA is revoked under Section 564(g) of the Act.Fact Sheet for Healthcare Prov iders:https://www.[employer].com/sites/default/files/product/documents/Fact_Sheet_HC _Kmucjjqka_Modq_ZXVS-EvM-5.pdfFact Sheet for Healthcare Patients:https://www.[employer]/sites/default/files/product/docume nts/Dqfb_Hmqcp_Dlruyhhx_Bhtx_SZDB-WjH-0.pdfPerforming Laboratory:[facility] [place], [place] [address]OPKCXSWULO LEVEL 2020-11-02 12:44:00 Test Item Value Reference Range Interpretation Comments TACROLIMUS BLOOD 10.2 ng/mL 10.0-20.0 Test perfor med on Stringer (BEAKER) (test code Architec t Immunoassay = 657) system with Chemiluminescen t Microparticle Immunoassay (CM IA) technology. Financial Aid Administrator ID - VINI MCOMPREHENSIVE METABOLIC [id number] 09:33:00 Test Item Value Reference Range Interpretation Comments TOTAL PROTEIN 7.3 gm/dL 6.0-8.3 (BEAKER) (test code = 770) ALBUMIN (BEAKER) 4.5 g/dL 3.5-5.0 (test code = 1145) ALKALINE PHOSPHATASE 74 U/L 40-150 (BEAKER) (test code = 346) BILIRUBIN TOTAL 3.3 mg/dL 0.2-1.2 H (BEAKER) (test code = 377) SODIUM (BEAKER) (test 140 meq/L 136-145 code = 381) POTASSIUM (BEAKER) 4.5 meq/L 3.5-5.1 (test code = 379) CHLORIDE (BEAKER) 105 meq/L 98-107 (test code = 382) CO2 (BEAKER) (test 29 meq/L 22-29 code = 355) BLOOD UREA NITROGEN 13 mg/dL 7-21 (BEAKER) (test code = 354) CREATININE (BEAKER) 0.60 mg/dL 0.57-1.25 (test code = 358) GLUCOSE RANDOM 96 mg/dL 70-105 (BEAKER) (test code = 652) CALCIUM (BEAKER) 9.1 mg/dL 8.4-10.2 (test code = 697) AST (SGOT) (BEAKER) 314 U/L 5-34 H (test code = 353) ALT (SGPT) (BEAKER) 326 U/L 6-55 H (test code = 347) EGFR (BEAKER) (test 160 ESTIMATE D GFR IS code = 1092) mL/min/1.73 sq NOT ACCURA TE m CREATININE CLEARANCE IN PREDICTING GLOMERULAR FILTRATION RATE . ESTIMATED GFR I S NOT APPLICABLE FOR DIALYSIS PATIEN TS. Financial Aid Administrator ID - ADMINSpecimen slightly ictericCBC W/PLT COUNT & AUTO [id number] 09:09:00 Test Item Value Reference Range Interpretation Comments WHITE BLOOD CELL COUNT (BEAKER) 4.5 K/ L 3.5-10.5 (test code = 775) RED BLOOD CELL COUNT (BEAKER) 5.22 M/ L 4.63-6.08 (test code = 761) HEMOGLOBIN (BEAKER) (test code = 16.0 GM/DL 13.7-17.5 410) HEMATOCRIT (BEAKER) (test code = 47.0 % 40.1-51.0 411) MEAN CORPUSCULAR VOLUME (BEAKER) 90.0 fL 79.0-92.2 (test code = 753) MEAN CORPUSCULAR HEMOGLOBIN 30.7 pg 25.7-32.2 (BEAKER) (test code = 751) MEAN CORPUSCULAR HEMOGLOBIN CONC 34.0 GM/DL 32.3-36.5 (BEAKER) (test code = 752) RED CELL DISTRIBUTION WIDTH 12.2 % 11.6-14.4 (BEAKER) (test code = 412) PLATELET COUNT (BEAKER) (test 210 K/CU MM 150-450 code = 756) MEAN PLATELET VOLUME (BEAKER) 10.8 fL 9.4-12.4 (test code = 754) NUCLEATED RED BLOOD CELLS 0 /100 WBC 0-0 (BEAKER) (test code = 413) NEUTROPHILS RELATIVE PERCENT 50 % (BEAKER) (test code = 429) LYMPHOCYTES RELATIVE PERCENT 35 % (BEAKER) (test code = 430) MONOCYTES RELATIVE PERCENT 13 % (BEAKER) (test code = 431) EOSINOPHILS RELATIVE PERCENT 0 % (BEAKER) (test code = 432) BASOPHILS RELATIVE PERCENT 0 % (BEAKER) (test code = 437) NEUTROPHILS ABSOLUTE COUNT 2.25 K/ L 1.78-5.38 (BEAKER) (test code = 670) LYMPHOCYTES ABSOLUTE COUNT 1.58 K/ L 1.32-3.57 (BEAKER) (test code = 414) MONOCYTES ABSOLUTE COUNT (BEAKER) 0.60 K/ L 0.30-0.82 (test code = 415) EOSINOPHILS ABSOLUTE COUNT 0.02 K/ L 0.04-0.54 L (BEAKER) (test code = 416) BASOPHILS ABSOLUTE COUNT (BEAKER) 0.02 K/ L 0.01-0.08 (test code = 417) IMMATURE GRANULOCYTES-RELATIVE 0 % 0-1 PERCENT (BEAKER) (test code = 2801) TACROLIMUS [id number] 10:32:00 Test Item Value Reference Range Interpretation Comments TACROLIMUS BLOOD 17.9 ng/mL 10.0-20.0 Test perfor med on Stringer (BEAKER) (test code Architec t Immunoassay = 657) system with Chemiluminescen t Microparticle Immunoassay (CM IA) technology. Financial Aid Administrator ID - AAHAMIDCOMPREHENSIVE METABOLIC [id number] 08:38:00 Test Item Value Reference Range Interpretation Comments TOTAL PROTEIN 7.1 gm/dL 6.0-8.3 (BEAKER) (test code = 770) ALBUMIN (BEAKER) 4.5 g/dL 3.5-5.0 (test code = 1145) ALKALINE PHOSPHATASE 70 U/L 40-150 (BEAKER) (test code = 346) BILIRUBIN TOTAL 3.8 mg/dL 0.2-1.2 H (BEAKER) (test code = 377) SODIUM (BEAKER) (test 141 meq/L 136-145 code = 381) POTASSIUM (BEAKER) 4.2 meq/L 3.5-5.1 (test code = 379) CHLORIDE (BEAKER) 107 meq/L 98-107 (test code = 382) CO2 (BEAKER) (test 29 meq/L 22-29 code = 355) BLOOD UREA NITROGEN 10 mg/dL 7-21 (BEAKER) (test code = 354) CREATININE (BEAKER) 0.57 mg/dL 0.57-1.25 (test code = 358) GLUCOSE RANDOM 93 mg/dL 70-105 (BEAKER) (test code = 652) CALCIUM (BEAKER) 9.0 mg/dL 8.4-10.2 (test code = 697) AST (SGOT) (BEAKER) 377 U/L 5-34 H (test code = 353) ALT (SGPT) (BEAKER) 365 U/L 6-55 H (test code = 347) EGFR (BEAKER) (test 170 ESTIMATE D GFR IS code = 1092) mL/min/1.73 sq NOT ACCURA TE m CREATININE CLEARANCE IN PREDICTING GLOMERULAR FILTRATION RATE . ESTIMATED GFR I S NOT APPLICABLE FOR DIALYSIS PATIEN TS. Financial Aid Administrator ID - EDASISpecimen slightly ictericCBC W/PLT COUNT & AUTO [id number] 08:18:00 Test Item Value Reference Range Interpretation Comments WHITE BLOOD CELL COUNT (BEAKER) 4.1 K/ L 3.5-10.5 (test code = 775) RED BLOOD CELL COUNT (BEAKER) 4.99 M/ L 4.63-6.08 (test code = 761) HEMOGLOBIN (BEAKER) (test code = 15.5 GM/DL 13.7-17.5 410) HEMATOCRIT (BEAKER) (test code = 45.2 % 40.1-51.0 411) MEAN CORPUSCULAR VOLUME (BEAKER) 90.6 fL 79.0-92.2 (test code = 753) MEAN CORPUSCULAR HEMOGLOBIN 31.1 pg 25.7-32.2 (BEAKER) (test code = 751) MEAN CORPUSCULAR HEMOGLOBIN CONC 34.3 GM/DL 32.3-36.5 (BEAKER) (test code = 752) RED CELL DISTRIBUTION WIDTH 12.5 % 11.6-14.4 (BEAKER) (test code = 412) PLATELET COUNT (BEAKER) (test 194 K/CU MM 150-450 code = 756) MEAN PLATELET VOLUME (BEAKER) 10.4 fL 9.4-12.4 (test code = 754) NUCLEATED RED BLOOD CELLS 0 /100 WBC 0-0 (BEAKER) (test code = 413) NEUTROPHILS RELATIVE PERCENT 56 % (BEAKER) (test code = 429) LYMPHOCYTES RELATIVE PERCENT 32 % (BEAKER) (test code = 430) MONOCYTES RELATIVE PERCENT 11 % (BEAKER) (test code = 431) EOSINOPHILS RELATIVE PERCENT 1 % (BEAKER) (test code = 432) BASOPHILS RELATIVE PERCENT 1 % (BEAKER) (test code = 437) NEUTROPHILS ABSOLUTE COUNT 2.29 K/ L 1.78-5.38 (BEAKER) (test code = 670) LYMPHOCYTES ABSOLUTE COUNT 1.32 K/ L 1.32-3.57 (BEAKER) (test code = 414) MONOCYTES ABSOLUTE COUNT (BEAKER) 0.45 K/ L 0.30-0.82 (test code = 415) EOSINOPHILS ABSOLUTE COUNT 0.02 K/ L 0.04-0.54 L (BEAKER) (test code = 416) BASOPHILS ABSOLUTE COUNT (BEAKER) 0.02 K/ L 0.01-0.08 (test code = 417) IMMATURE GRANULOCYTES-RELATIVE 0 % 0-1 PERCENT (BEAKER) (test code = 2801) RAD, CHEST, 2 [id number] 12:15:00Referring: Dr. Yee Wynne for Exam:->[facility] : 1990 Sex: MFINAL REPORT CLINICAL HISTORY: heart transplant annual follow up TECHNIQUE: 2 views of the chest COMPARISON: 09/16/2019 IMPRESSION: There are no focal infiltrates or effusions. Thecardiomediastinal silhouette is unchanged poststernotomy with a truncated pacemaker. Signed: Suzanne Dennis MDReport Verified Date/Time: 10/15/2020 12:15:02 Reading Location: [facility] Radiology Reading Room TACROLIMUS [id number] 10:07:00 Test Item Value Reference Range Interpretation Comments TACROLIMUS BLOOD 18.5 ng/mL 10.0-20.0 Test perfor med on Stringer (BEAKER) (test code Architec t Immunoassay = 657) system with Chemiluminescen t Microparticle Immunoassay (CM IA) technology. Financial Aid Administrator ID - FATIMAH [facility]uROB[facility] FUNCTION [id number] 08:03:00 Test Item Value Reference Range Interpretation Comments TOTAL PROTEIN (BEAKER) (test code = 7.5 gm/dL 6.0-8.3 770) ALBUMIN (BEAKER) (test code = 1145) 4.7 g/dL 3.5-5.0 BILIRUBIN TOTAL (BEAKER) (test code 4.3 mg/dL 0.2-1.2 H = 377) BILIRUBIN DIRECT (BEAKER) (test 0.4 mg/dL 0.1-0.5 code = 706) ALKALINE PHOSPHATASE (BEAKER) (test 78 U/L 40-150 code = 346) AST (SGOT) (BEAKER) (test code = 359 U/L 5-34 H 353) ALT (SGPT) (BEAKER) (test code = 332 U/L 6-55 H 347) Financial Aid Administrator ID - ADMINSpecimen moderately ictericBASIC METABOLIC [id number] 08:02:00 Test Item Value Reference Range Interpretation Comments SODIUM (BEAKER) 139 meq/L 136-145 (test code = 381) POTASSIUM (BEAKER) 4.4 meq/L 3.5-5.1 (test code = 379) CHLORIDE (BEAKER) 106 meq/L 98-107 (test code = 382) CO2 (BEAKER) (test 27 meq/L 22-29 code = 355) BLOOD UREA NITROGEN 11 mg/dL 7-21 (BEAKER) (test code = 354) CREATININE (BEAKER) 0.61 mg/dL 0.57-1.25 (test code = 358) GLUCOSE RANDOM 94 mg/dL 70-105 (BEAKER) (test code = 652) CALCIUM (BEAKER) 9.5 mg/dL 8.4-10.2 (test code = 697) EGFR (BEAKER) (test 157 mL/min/1.73 ESTIM ATED GFR IS code = 1092) sq m NOT ACCURATE CREATININE CLEARANCE IN PREDICTING GLOMERULAR FILTRATION RATE . ESTIMATED GFR I S NOT APPLICABLE FOR DIALYSIS PATIEN TS. Financial Aid Administrator ID - ADMINSpecimen moderately ictericLIPID [id number] 08:02:00 Test Item Value Reference Range Interpretation Comments TRIGLYCERIDES (BEAKER) (test code = 61 mg/dL 540) CHOLESTEROL (BEAKER) (test code = 150 mg/dL 631) HDL CHOLESTEROL (BEAKER) (test code 47 mg/dL = 976) LDL CHOLESTEROL CALCULATED (BEAKER) 91 mg/dL (test code = 633) Triglyceride Reference Range: Low Risk <150 Borderline 150-199 High Risk 200- 499 Very High Risk >=500Cholesterol Reference Range: Low Risk <200 Borderline 200-239 High Risk >240HDL Cholesterol Reference Range: Low Risk >=60 High Risk <40LDL Cholesterol Reference Range: Optimal <100 Near Optimal 100-129 Borderline 130-159 High 160-189 Very High >=190 Financial Aid Administrator ID - ADMINSpecimenmoderately ictericCBC W/PLT COUNT & AUTO [id number] 07:45:00 Test Item Value Reference Range Interpretation Comments WHITE BLOOD CELL COUNT (BEAKER) 6.0 K/ L 3.5-10.5 (test code = 775) RED BLOOD CELL COUNT (BEAKER) 5.18 M/ L 4.63-6.08 (test code = 761) HEMOGLOBIN (BEAKER) (test code = 16.2 GM/DL 13.7-17.5 410) HEMATOCRIT (BEAKER) (test code = 46.6 % 40.1-51.0 411) MEAN CORPUSCULAR VOLUME (BEAKER) 90.0 fL 79.0-92.2 (test code = 753) MEAN CORPUSCULAR HEMOGLOBIN 31.3 pg 25.7-32.2 (BEAKER) (test code = 751) MEAN CORPUSCULAR HEMOGLOBIN CONC 34.8 GM/DL 32.3-36.5 (BEAKER) (test code = 752) RED CELL DISTRIBUTION WIDTH 12.5 % 11.6-14.4 (BEAKER) (test code = 412) PLATELET COUNT (BEAKER) (test 191 K/CU MM 150-450 code = 756) MEAN PLATELET VOLUME (BEAKER) 10.5 fL 9.4-12.4 (test code = 754) NUCLEATED RED BLOOD CELLS 0 /100 WBC 0-0 (BEAKER) (test code = 413) NEUTROPHILS RELATIVE PERCENT 63 % (BEAKER) (test code = 429) LYMPHOCYTES RELATIVE PERCENT 27 % (BEAKER) (test code = 430) MONOCYTES RELATIVE PERCENT 9 % (BEAKER) (test code = 431) EOSINOPHILS RELATIVE PERCENT 1 % (BEAKER) (test code = 432) BASOPHILS RELATIVE PERCENT 0 % (BEAKER) (test code = 437) NEUTROPHILS ABSOLUTE COUNT 3.81 K/ L 1.78-5.38 (BEAKER) (test code = 670) LYMPHOCYTES ABSOLUTE COUNT 1.60 K/ L 1.32-3.57 (BEAKER) (test code = 414) MONOCYTES ABSOLUTE COUNT (BEAKER) 0.55 K/ L 0.30-0.82 (test code = 415) EOSINOPHILS ABSOLUTE COUNT 0.03 K/ L 0.04-0.54 L (BEAKER) (test code = 416) BASOPHILS ABSOLUTE COUNT (BEAKER) 0.02 K/ L 0.01-0.08 (test code = 417) IMMATURE GRANULOCYTES-RELATIVE 1 % 0-1 PERCENT (BEAKER) (test code = 2801) TACROLIMUS [id number] 14:59:00 Test Item Value Reference Range Interpretation Comments TACROLIMUS BLOOD (BEAKER) (test 7.2 ng/mL 10.0-20.0 L code = 657) Financial Aid Administrator ID - NTPCOMPREHENSIVE METABOLIC [id number] 13:20:00 Test Item Value Reference Range Interpretation Comments TOTAL PROTEIN 7.5 gm/dL 6.0-8.3 (BEAKER) (test code = 770) ALBUMIN (BEAKER) 4.5 g/dL 3.5-5.0 (test code = 1145) ALKALINE PHOSPHATASE 76 U/L 40-150 (BEAKER) (test code = 346) BILIRUBIN TOTAL 3.2 mg/dL 0.2-1.2 H (BEAKER) (test code = 377) SODIUM (BEAKER) (test 140 meq/L 136-145 code = 381) POTASSIUM (BEAKER) 4.6 meq/L 3.5-5.1 (test code = 379) CHLORIDE (BEAKER) 107 meq/L 98-107 (test code = 382) CO2 (BEAKER) (test 29 meq/L 22-29 code = 355) BLOOD UREA NITROGEN 7 mg/dL 7-21 (BEAKER) (test code = 354) CREATININE (BEAKER) 0.53 mg/dL 0.57-1.25 L (test code = 358) GLUCOSE RANDOM 87 mg/dL 70-105 (BEAKER) (test code = 652) CALCIUM (BEAKER) 9.3 mg/dL 8.4-10.2 (test code = 697) AST (SGOT) (BEAKER) 277 U/L 5-34 H (test code = 353) ALT (SGPT) (BEAKER) 309 U/L 6-55 H (test code = 347) EGFR (BEAKER) (test 186 ESTIMATE D GFR IS code = 1092) mL/min/1.73 sq NOT ACCURA TE m CREATININE CLEARANCE IN PREDICTING GLOMERULAR FILTRATION RATE . ESTIMATED GFR I S NOT APPLICABLE FOR DIALYSIS PATIEN TS. Financial Aid Administrator ID - DEEPTI FSpecimen slightly ictericCBC W/PLT COUNT & AUTO [id number] 13:05:00 Test Item Value Reference Range Interpretation Comments WHITE BLOOD CELL COUNT (BEAKER) 4.5 K/ L 3.5-10.5 (test code = 775) RED BLOOD CELL COUNT (BEAKER) 5.58 M/ L 4.63-6.08 (test code = 761) HEMOGLOBIN (BEAKER) (test code = 17.1 GM/DL 13.7-17.5 410) HEMATOCRIT (BEAKER) (test code = 49.6 % 40.1-51.0 411) MEAN CORPUSCULAR VOLUME (BEAKER) 88.9 fL 79.0-92.2 (test code = 753) MEAN CORPUSCULAR HEMOGLOBIN 30.6 pg 25.7-32.2 (BEAKER) (test code = 751) MEAN CORPUSCULAR HEMOGLOBIN CONC 34.5 GM/DL 32.3-36.5 (BEAKER) (test code = 752) RED CELL DISTRIBUTION WIDTH 12.3 % 11.6-14.4 (BEAKER) (test code = 412) PLATELET COUNT (BEAKER) (test 193 K/CU MM 150-450 code = 756) MEAN PLATELET VOLUME (BEAKER) 10.5 fL 9.4-12.4 (test code = 754) NUCLEATED RED BLOOD CELLS 0 /100 WBC 0-0 (BEAKER) (test code = 413) NEUTROPHILS RELATIVE PERCENT 50 % (BEAKER) (test code = 429) LYMPHOCYTES RELATIVE PERCENT 37 % (BEAKER) (test code = 430) MONOCYTES RELATIVE PERCENT 13 % (BEAKER) (test code = 431) EOSINOPHILS RELATIVE PERCENT 0 % (BEAKER) (test code = 432) BASOPHILS RELATIVE PERCENT 0 % (BEAKER) (test code = 437) NEUTROPHILS ABSOLUTE COUNT 2.22 K/ L 1.78-5.38 (BEAKER) (test code = 670) LYMPHOCYTES ABSOLUTE COUNT 1.64 K/ L 1.32-3.57 (BEAKER) (test code = 414) MONOCYTES ABSOLUTE COUNT (BEAKER) 0.56 K/ L 0.30-0.82 (test code = 415) EOSINOPHILS ABSOLUTE COUNT 0.02 K/ L 0.04-0.54 L (BEAKER) (test code = 416) BASOPHILS ABSOLUTE COUNT (BEAKER) 0.02 K/ L 0.01-0.08 (test code = 417) IMMATURE GRANULOCYTES-RELATIVE 0 % 0-1 PERCENT (BEAKER) (test code = 2801) RAD, CHEST, 2 [id number] 12:25:00Referring: Dr. Yee Wynne for Exam:->heart transplant annual follow upFINAL REPORT INDICATION: heart transplant annual follow up COMPARISON: None TECHNIQUE: Frontal and lateral views of the chest. FINDINGS: Lungs and pleura: Clear lungs. No effusion.Heart and mediastinum: Normal heart size. Unremarkable mediastinal contours.Osseous structures: No acute abnormality.Additional findings: None. IMPRESSION: No acute intrathoracic abnormality. Signed: April Tinsley Verified Date/Time: 09/16/2019 12:25:10 Reading Location: [facility], [place] Reading Room RAD, BONE DENSITY [id number] 10:36:00Referring: Dr. Yee Wynne for Exam:->osteopeniaFINAL REPORT Bone density study, 09/16/2019 Clinical History: Screening Bone mineral density measurementLumbar spine1.290 gm/oc1Hsidwav neck0.885 gm/cm2 Standard deviation from young adult population (T-score)Lumbar spine0.6Femoral neck-1.4 Standard deviation for age adjusted population (Z-score)Lumbar spine1.5Femoral neck-0.9 According to medical literature, this corresponds to no increased risk of an osteoporotic fracture of the lumbar spine as compared to the [facility]. The femoral neck bone mineral density corresponds to 1-2 times increased risk of an osteoporotic fracture as compared to the young adult population. Impression: Osteopenia of the femoral neck. Comparison to 09/13/2018 shows 7% decrease in the left femoral neck density, no change in the lumbar spine density and 4% increase in the right femoral neck density. Complete computer analysis will be sent shortly. Diagnostic criteria for osteoporosisBMD: Bone mineral density Normal: BMD measurement less than one standard deviation from young adult populationOsteopenia: BMD measurement between 1 and 2.5 standard deviationsOsteoporosis: BMD measurement greater than 2.5 standard deviationsSevere osteoporosis: Osteoporosis and one or more fragility fractures Signed: Toro Peck MDReport Verified Date/Time: 09/16/2019 10:36:33 Reading Location: [address] Reading Room TACROLIMUS [id number] 10:43:00 Test Item Value Reference Range Interpretation Comments TACROLIMUS BLOOD (BEAKER) (test 5.6 ng/mL 10.0-20.0 L code = 657) COMPREHENSIVE METABOLIC [id number] 09:52:00 Test Item Value Reference Range Interpretation Comments TOTAL PROTEIN 7.2 gm/dL 6.0-8.3 (BEAKER) (test code = 770) ALBUMIN (BEAKER) 4.3 g/dL 3.5-5.0 (test code = 1145) ALKALINE PHOSPHATASE 73 U/L 40-150 (BEAKER) (test code = 346) BILIRUBIN TOTAL 3.8 mg/dL 0.2-1.2 H (BEAKER) (test code = 377) SODIUM (BEAKER) (test 139 meq/L 136-145 code = 381) POTASSIUM (BEAKER) 4.0 meq/L 3.5-5.1 (test code = 379) CHLORIDE (BEAKER) 107 meq/L 98-107 (test code = 382) CO2 (BEAKER) (test 26 meq/L 22-29 code = 355) BLOOD UREA NITROGEN 7 mg/dL 7-21 (BEAKER) (test code = 354) CREATININE (BEAKER) 0.58 mg/dL 0.57-1.25 (test code = 358) GLUCOSE RANDOM 86 mg/dL 70-105 (BEAKER) (test code = 652) CALCIUM (BEAKER) 8.9 mg/dL 8.4-10.2 (test code = 697) AST (SGOT) (BEAKER) 283 U/L 5-34 H (test code = 353) ALT (SGPT) (BEAKER) 264 U/L 6-55 H (test code = 347) EGFR (BEAKER) (test 169 ESTIMATE D GFR IS code = 1092) mL/min/1.73 sq NOT ACCURA TE m CREATININE CLEARANCE IN PREDICTING GLOMERULAR FILTRATION RATE . ESTIMATED GFR I S NOT APPLICABLE FOR DIALYSIS PATIEN TS. Specimen moderately ictericLIPID [id number] 09:52:00 Test Item Value Reference Range Interpretation Comments TRIGLYCERIDES (BEAKER) (test code = 55 mg/dL 540) CHOLESTEROL (BEAKER) (test code = 146 mg/dL 631) HDL CHOLESTEROL (BEAKER) (test code 47 mg/dL = 976) LDL CHOLESTEROL CALCULATED (BEAKER) 88 mg/dL (test code = 633) Triglyceride Reference Range: Low Risk <150 Borderline 150-199 High Risk 200- 499 Very High Risk >=500Cholesterol Reference Range: Low Risk <200 Borderline 200-239 High Risk >240HDL Cholesterol Reference Range: Low Risk >=60 High Risk <40LDL Cholesterol Reference Range: Optimal <100 Near Optimal 100-129 Borderline 130-159 High 160-189 Very High >=190 Specimen moderately ictericCBC W/PLT COUNT & AUTO [id number] 09:26:00 Test Item Value Reference Range Interpretation Comments WHITE BLOOD CELL COUNT (BEAKER) 3.9 K/ L 3.5-10.5 (test code = 775) RED BLOOD CELL COUNT (BEAKER) 5.11 M/ L 4.63-6.08 (test code = 761) HEMOGLOBIN (BEAKER) (test code = 15.4 GM/DL 13.7-17.5 410) HEMATOCRIT (BEAKER) (test code = 45.0 % 40.1-51.0 411) MEAN CORPUSCULAR VOLUME (BEAKER) 88.1 fL 79.0-92.2 (test code = 753) MEAN CORPUSCULAR HEMOGLOBIN 30.1 pg 25.7-32.2 (BEAKER) (test code = 751) MEAN CORPUSCULAR HEMOGLOBIN CONC 34.2 GM/DL 32.3-36.5 (BEAKER) (test code = 752) RED CELL DISTRIBUTION WIDTH 12.3 % 11.6-14.4 (BEAKER) (test code = 412) PLATELET COUNT (BEAKER) (test 187 K/CU MM 150-450 code = 756) MEAN PLATELET VOLUME (BEAKER) 10.6 fL 9.4-12.4 (test code = 754) NUCLEATED RED BLOOD CELLS 0 /100 WBC 0-0 (BEAKER) (test code = 413) NEUTROPHILS RELATIVE PERCENT 47 % (BEAKER) (test code = 429) LYMPHOCYTES RELATIVE PERCENT 37 % (BEAKER) (test code = 430) MONOCYTES RELATIVE PERCENT 14 % (BEAKER) (test code = 431) EOSINOPHILS RELATIVE PERCENT 1 % (BEAKER) (test code = 432) BASOPHILS RELATIVE PERCENT 1 % (BEAKER) (test code = 437) NEUTROPHILS ABSOLUTE COUNT 1.83 K/ L 1.78-5.38 (BEAKER) (test code = 670) LYMPHOCYTES ABSOLUTE COUNT 1.45 K/ L 1.32-3.57 (BEAKER) (test code = 414) MONOCYTES ABSOLUTE COUNT (BEAKER) 0.54 K/ L 0.30-0.82 (test code = 415) EOSINOPHILS ABSOLUTE COUNT 0.04 K/ L 0.04-0.54 (BEAKER) (test code = 416) BASOPHILS ABSOLUTE COUNT (BEAKER) 0.02 K/ L 0.01-0.08 (test code = 417) IMMATURE GRANULOCYTES-RELATIVE 0 % 0-1 PERCENT (BEAKER) (test code = 2801) TACROLIMUS [id number] 12:33:00 Test Item Value Reference Range Interpretation Comments TACROLIMUS BLOOD (BEAKER) (test 6.3 ng/mL 10.0-20.0 L code = 657) COMPREHENSIVE METABOLIC [id number] 11:39:00 Test Item Value Reference Range Interpretation Comments TOTAL PROTEIN 7.2 gm/dL 6.0-8.3 Specimen sligh tly (BEAKER) (test code = hemoly zed 770) ALBUMIN (BEAKER) 4.3 g/dL 3.5-5.0 Specimen sl ightly (test code = 1145) hemolyzed ALKALINE PHOSPHATASE 77 U/L 40-150 (BEAKER) (test code = 346) BILIRUBIN TOTAL 2.7 mg/dL 0.2-1.2 H Specimen sli ghtly (BEAKER) (test code = hemoly zed 377) SODIUM (BEAKER) (test 140 meq/L 136-145 code = 381) POTASSIUM (BEAKER) 4.8 meq/L 3.5-5.1 Specimen slightly (test code = 379) hemolyzed CHLORIDE (BEAKER) 107 meq/L 98-107 (test code = 382) CO2 (BEAKER) (test 29 meq/L 22-29 code = 355) BLOOD UREA NITROGEN 8 mg/dL 7-21 (BEAKER) (test code = 354) CREATININE (BEAKER) 0.57 mg/dL 0.57-1.25 Specimen slightly (test code = 358) hemolyzed GLUCOSE RANDOM 91 mg/dL 70-105 (BEAKER) (test code = 652) CALCIUM (BEAKER) 9.1 mg/dL 8.4-10.2 (test code = 697) AST (SGOT) (BEAKER) 266 U/L 5-34 H Specimen slightly (test code = 353) hemolyzed ALT (SGPT) (BEAKER) 260 U/L 6-55 H Specimen slightly (test code = 347) hemolyzed EGFR (BEAKER) (test 173 ESTIMATE D GFR IS code = 1092) mL/min/1.73 sq NOT ACCURA TE m CREATININE CLEARANCE IN PREDICTING GLOMERULAR FILTRATION RATE . ESTIMATED GFR I S NOT APPLICABLE FOR DIALYSIS PATIEN TS. Specimen slightly ictericLIPID [id number] 11:39:00 Test Item Value Reference Range Interpretation Comments TRIGLYCERIDES (BEAKER) 58 mg/dL Speci men slightly (test code = 540) hemolyzed CHOLESTEROL (BEAKER) 141 mg/dL Specime n slightly (test code = 631) hemolyzed HDL CHOLESTEROL (BEAKER) 47 mg/dL (test code = 976) LDL CHOLESTEROL 82 mg/dL CALCULATED (BEAKER) (test code = 633) Triglyceride Reference Range: Low Risk <150 Borderline 150-199 High Risk 200- 499 Very High Risk >=500Cholesterol Reference Range: Low Risk <200 Borderline 200-239 High Risk >240HDL Cholesterol Reference Range: Low Risk >=60 High Risk <40LDL Cholesterol Reference Range: Optimal <100 Near Optimal 100-129 Borderline 130-159 High 160-189 Very High >=190 Specimen slightly ictericCBC W/PLT COUNT & AUTO [id number] 11:25:00 Test Item Value Reference Range Interpretation Comments WHITE BLOOD CELL COUNT (BEAKER) 8.1 K/ L 3.5-10.5 (test code = 775) RED BLOOD CELL COUNT (BEAKER) 5.08 M/ L 4.63-6.08 (test code = 761) HEMOGLOBIN (BEAKER) (test code = 15.2 GM/DL 13.7-17.5 410) HEMATOCRIT (BEAKER) (test code = 44.9 % 40.1-51.0 411) MEAN CORPUSCULAR VOLUME (BEAKER) 88.4 fL 79.0-92.2 (test code = 753) MEAN CORPUSCULAR HEMOGLOBIN 29.9 pg 25.7-32.2 (BEAKER) (test code = 751) MEAN CORPUSCULAR HEMOGLOBIN CONC 33.9 GM/DL 32.3-36.5 (BEAKER) (test code = 752) RED CELL DISTRIBUTION WIDTH 12.8 % 11.6-14.4 (BEAKER) (test code = 412) PLATELET COUNT (BEAKER) (test 187 K/CU MM 150-450 code = 756) MEAN PLATELET VOLUME (BEAKER) 11.2 fL 9.4-12.4 (test code = 754) NUCLEATED RED BLOOD CELLS 0 /100 WBC 0-0 (BEAKER) (test code = 413) NEUTROPHILS RELATIVE PERCENT 67 % (BEAKER) (test code = 429) LYMPHOCYTES RELATIVE PERCENT 20 % (BEAKER) (test code = 430) MONOCYTES RELATIVE PERCENT 12 % (BEAKER) (test code = 431) EOSINOPHILS RELATIVE PERCENT 1 % (BEAKER) (test code = 432) BASOPHILS RELATIVE PERCENT 0 % (BEAKER) (test code = 437) NEUTROPHILS ABSOLUTE COUNT 5.42 K/ L 1.78-5.38 H (BEAKER) (test code = 670) LYMPHOCYTES ABSOLUTE COUNT 1.63 K/ L 1.32-3.57 (BEAKER) (test code = 414) MONOCYTES ABSOLUTE COUNT (BEAKER) 0.93 K/ L 0.30-0.82 H (test code = 415) EOSINOPHILS ABSOLUTE COUNT 0.04 K/ L 0.04-0.54 (BEAKER) (test code = 416) BASOPHILS ABSOLUTE COUNT (BEAKER) 0.02 K/ L 0.01-0.08 (test code = 417) IMMATURE GRANULOCYTES-RELATIVE 0 % 0-1 PERCENT (BEAKER) (test code = 2801) BASIC METABOLIC [id number] 12:20:00 Test Item Value Reference Range Interpretation Comments SODIUM (BEAKER) 141 meq/L 136-145 (test code = 381) POTASSIUM (BEAKER) 4.7 meq/L 3.5-5.1 Specimen slightly (test code = 379) hemolyzed CHLORIDE (BEAKER) 108 meq/L 98-107 H (test code = 382) CO2 (BEAKER) (test 28 meq/L 22-29 code = 355) BLOOD UREA NITROGEN 10 mg/dL 7-21 (BEAKER) (test code = 354) CREATININE (BEAKER) 0.61 mg/dL 0.57-1.25 Specimen slightly (test code = 358) hemolyzed GLUCOSE RANDOM 76 mg/dL 70-105 (BEAKER) (test code = 652) CALCIUM (BEAKER) 9.4 mg/dL 8.4-10.2 (test code = 697) EGFR (BEAKER) (test 160 mL/min/1.73 ESTIM ATED GFR IS code = 1092) sq m NOT ACCURATE CREATININE CLEARANCE IN PREDICTING GLOMERULAR FILTRATION RATE . ESTIMATED GFR I S NOT APPLICABLE FOR DIALYSIS PATIEN TS. Specimen slightly ictericHEPATIC FUNCTION [id number] 12:20:00 Test Item Value Reference Range Interpretation Comments TOTAL PROTEIN (BEAKER) 7.2 gm/dL 6.0-8.3 Speci men slightly (test code = 770) hemolyzed ALBUMIN (BEAKER) (test 4.2 g/dL 3.5-5.0 Speci men slightly code = 1145) hemolyzed BILIRUBIN TOTAL 2.4 mg/dL 0.2-1.2 H Specimen sli ghtly (BEAKER) (test code = hemoly zed 377) BILIRUBIN DIRECT 0.7 mg/dL 0.1-0.5 H Specimen sl ightly (BEAKER) (test code = hemoly zed 706) ALKALINE PHOSPHATASE 86 U/L 40-150 (BEAKER) (test code = 346) AST (SGOT) (BEAKER) 277 U/L 5-34 H Specimen slightly (test code = 353) hemolyzed ALT (SGPT) (BEAKER) 249 U/L 6-55 H Specimen slightly (test code = 347) hemolyzed Specimen slightly ictericGAMMA GLUTAMYL TRANSFERASE (GGT)[id number] 12:20:00 Test Item Value Reference Range Interpretation Comments GAMMA GLUTAMYL 11 U/L 9-64 Specimen slig htly TRANSFERASE (BEAKER) hemolyz ed (test code = 364) Specimen slightly ictericPROTHROMBIN [id number] 11:43:00 Test Item Value Reference Range Interpretation Comments PROTIME (BEAKER) (test code = 13.3 seconds 11.9-14.2 759) INR (BEAKER) (test code = 370) 1.1 <=5.9 Effective 02/26/2019: PT Reference Range ChangeNew: 11.9-14.2 Previous: 11.7- 14.7RECOMMENDED COUMADIN/WARFARIN INR THERAPY RANGESSTANDARD DOSE: 2.0-3.0 Includes: PROPHYLAXIS for venous thrombosis, systemic embolization; TREATMENT for venous thrombosis and/or pulmonary embolus.HIGH RISK: Target INR is 2.5-3.5 for patients wiht mechanical heart valves.CBC W/PLT COUNT & AUTO [id number] 11:33:00 Test Item Value Reference Range Interpretation Comments WHITE BLOOD CELL COUNT (BEAKER) 5.0 K/ L 3.5-10.5 (test code = 775) RED BLOOD CELL COUNT (BEAKER) 4.99 M/ L 4.63-6.08 (test code = 761) HEMOGLOBIN (BEAKER) (test code = 15.3 GM/DL 13.7-17.5 410) HEMATOCRIT (BEAKER) (test code = 44.7 % 40.1-51.0 411) MEAN CORPUSCULAR VOLUME (BEAKER) 89.6 fL 79.0-92.2 (test code = 753) MEAN CORPUSCULAR HEMOGLOBIN 30.7 pg 25.7-32.2 (BEAKER) (test code = 751) MEAN CORPUSCULAR HEMOGLOBIN CONC 34.2 GM/DL 32.3-36.5 (BEAKER) (test code = 752) RED CELL DISTRIBUTION WIDTH 12.6 % 11.6-14.4 (BEAKER) (test code = 412) PLATELET COUNT (BEAKER) (test 195 K/CU MM 150-450 code = 756) MEAN PLATELET VOLUME (BEAKER) 11.2 fL 9.4-12.4 (test code = 754) NUCLEATED RED BLOOD CELLS 0 /100 WBC 0-0 (BEAKER) (test code = 413) NEUTROPHILS RELATIVE PERCENT 57 % (BEAKER) (test code = 429) LYMPHOCYTES RELATIVE PERCENT 29 % (BEAKER) (test code = 430) MONOCYTES RELATIVE PERCENT 13 % (BEAKER) (test code = 431) EOSINOPHILS RELATIVE PERCENT 1 % (BEAKER) (test code = 432) BASOPHILS RELATIVE PERCENT 0 % (BEAKER) (test code = 437) NEUTROPHILS ABSOLUTE COUNT 2.87 K/ L 1.78-5.38 (BEAKER) (test code = 670) LYMPHOCYTES ABSOLUTE COUNT 1.43 K/ L 1.32-3.57 (BEAKER) (test code = 414) MONOCYTES ABSOLUTE COUNT (BEAKER) 0.64 K/ L 0.30-0.82 (test code = 415) EOSINOPHILS ABSOLUTE COUNT 0.04 K/ L 0.04-0.54 (BEAKER) (test code = 416) BASOPHILS ABSOLUTE COUNT (BEAKER) 0.02 K/ L 0.01-0.08 (test code = 417) IMMATURE GRANULOCYTES-RELATIVE 0 % 0-1 PERCENT (BEAKER) (test code = 2801) RAD, BONE DENSITY [id number] 14:50:00Referring: Dr. Yee Wynne for Exam:->osteopeniaFINAL REPORT Bone mineral density study 09/13/2018. HISTORY PROVIDED: Osteopenia. COMPARISON: 09/14/2017 FINDINGS: Evaluation of the left and right femoral necks and lumbar spine was performed utilizing a bone densitometer. Data reflect young adult matched T-scores and age-matched Z scores. IMPRESSION: The left femoral neck bone mineral density is 0.935gm/cm2, the T-score is -1.0, and the Z-score is -0.5. The right femoral neck total bone mineral density is 0.858gm/cm2, the T-score is -1.6, and the Z- score is -1.1. This is suggestive of osteopenia. The lumbar spine total bone m ineral density is 1.285gm/cm2, the T-score is 0.5, and the Z-score is 1.4. Compared to the prior exam, the bone mineral density of the lumbar spine demonstrates a 0.3% increase. The bone density of theleft femoral neck demonstrates a 3.9% increase. The bone mineral density of the right femoral neck demonstrates a 1.5% decrease. Signed: Gerson Hernandez MDReport Verified Date/Time: 09/13/2018 14:50:01 Reading Location: [facility] Women TACROLIMUS [id number] 11:22:00 Test Item Value Reference Range Interpretation Comments TACROLIMUS BLOOD (BEAKER) (test 10.1 ng/mL 10.0-20.0 code = 657) BASIC METABOLIC [id number] 09:25:00 Test Item Value Reference Range Interpretation Comments SODIUM (BEAKER) 138 meq/L 136-145 (test code = 381) POTASSIUM (BEAKER) 4.5 meq/L 3.5-5.1 (test code = 379) CHLORIDE (BEAKER) 103 meq/L 98-107 (test code = 382) CO2 (BEAKER) (test 28 meq/L 22-29 code = 355) BLOOD UREA NITROGEN 14 mg/dL 7-21 (BEAKER) (test code = 354) CREATININE (BEAKER) 0.66 mg/dL 0.57-1.25 (test code = 358) GLUCOSE RANDOM 86 mg/dL 70-105 (BEAKER) (test code = 652) CALCIUM (BEAKER) 9.6 mg/dL 8.4-10.2 (test code = 697) EGFR (BEAKER) (test 147 mL/min/1.73 ESTIM ATED GFR IS code = 1092) sq m NOT ACCURATE CREATININE CLEARANCE IN PREDICTING GLOMERULAR FILTRATION RATE . ESTIMATED GFR I S NOT APPLICABLE FOR DIALYSIS PATIEN TS. Specimen slightly ictericLIPID [id number] 09:25:00 Test Item Value Reference Range Interpretation Comments TRIGLYCERIDES (BEAKER) (test code = 77 mg/dL 540) CHOLESTEROL (BEAKER) (test code = 157 mg/dL 631) HDL CHOLESTEROL (BEAKER) (test code 46 mg/dL = 976) LDL CHOLESTEROL CALCULATED (BEAKER) 96 mg/dL (test code = 633) Triglyceride Reference Range: Low Risk <150 Borderline 150-199 High Risk 200- 499 Very High Risk >=500Cholesterol Reference Range: Low Risk <200 Borderline 200-239 High Risk >240HDL Cholesterol Reference Range: Low Risk >=60 High Risk <40LDL Cholesterol Reference Range: Optimal <100 Near Optimal 100-129 Borderline 130-159 High 160-189 Very High >=190 Specimen slightly ictericHEPATIC FUNCTION [id number] 09:25:00 Test Item Value Reference Range Interpretation Comments TOTAL PROTEIN (BEAKER) (test code = 7.7 gm/dL 6.0-8.3 770) ALBUMIN (BEAKER) (test code = 1145) 4.6 g/dL 3.5-5.0 BILIRUBIN TOTAL (BEAKER) (test code 2.8 mg/dL 0.2-1.2 H = 377) BILIRUBIN DIRECT (BEAKER) (test 0.8 mg/dL 0.1-0.5 H code = 706) ALKALINE PHOSPHATASE (BEAKER) (test 83 U/L 40-150 code = 346) AST (SGOT) (BEAKER) (test code = 287 U/L 5-34 H 353) ALT (SGPT) (BEAKER) (test code = 252 U/L 6-55 H 347) Specimen slightly ictericRAD, CHEST, 2 [id number] 09:06:00Referring: Dr. Yee Wynne for Exam:->heart transplant annual follow upFINAL REPORT INDICATION: heart transplant annual follow up COMPARISON: None TECHNIQUE: Frontal and lateral views of the chest. FINDINGS: Lungs and pleura: Lungs remain well-inflated and clear. Costophrenic sulci are sharp.Heart and mediastinum: Normal heart size. Sternotomy wires are intact. Disconnected pulse generator is stable.Osseous structures: No acute abnormality.Additional findings: None. IMPRESSION: No acute intrathoracic abnormality. Signed: JR Smith Robert MDReport Verified Date/Time: 09/13/2018 09:06:45 Reading Location: [facility] Radiology Reading Room CBC W/PLT COUNT & AUTO [id number] 08:49:00 Test Item Value Reference Range Interpretation Comments WHITE BLOOD CELL COUNT (BEAKER) 5.7 K/ L 3.5-10.5 (test code = 775) RED BLOOD CELL COUNT (BEAKER) 5.33 M/ L 4.63-6.08 (test code = 761) HEMOGLOBIN (BEAKER) (test code = 16.1 GM/DL 13.7-17.5 410) HEMATOCRIT (BEAKER) (test code = 47.7 % 40.1-51.0 411) MEAN CORPUSCULAR VOLUME (BEAKER) 89.5 fL 79.0-92.2 (test code = 753) MEAN CORPUSCULAR HEMOGLOBIN 30.2 pg 25.7-32.2 (BEAKER) (test code = 751) MEAN CORPUSCULAR HEMOGLOBIN CONC 33.8 GM/DL 32.3-36.5 (BEAKER) (test code = 752) RED CELL DISTRIBUTION WIDTH 13.0 % 11.6-14.4 (BEAKER) (test code = 412) PLATELET COUNT (BEAKER) (test 189 K/CU MM 150-450 code = 756) MEAN PLATELET VOLUME (BEAKER) 11.2 fL 9.4-12.4 (test code = 754) NUCLEATED RED BLOOD CELLS 0 /100 WBC 0-0 (BEAKER) (test code = 413) NEUTROPHILS RELATIVE PERCENT 51 % (BEAKER) (test code = 429) LYMPHOCYTES RELATIVE PERCENT 32 % (BEAKER) (test code = 430) MONOCYTES RELATIVE PERCENT 12 % (BEAKER) (test code = 431) EOSINOPHILS RELATIVE PERCENT 5 % (BEAKER) (test code = 432) BASOPHILS RELATIVE PERCENT 0 % (BEAKER) (test code = 437) NEUTROPHILS ABSOLUTE COUNT 2.91 K/ L 1.78-5.38 (BEAKER) (test code = 670) LYMPHOCYTES ABSOLUTE COUNT 1.79 K/ L 1.32-3.57 (BEAKER) (test code = 414) MONOCYTES ABSOLUTE COUNT (BEAKER) 0.68 K/ L 0.30-0.82 (test code = 415) EOSINOPHILS ABSOLUTE COUNT 0.26 K/ L 0.04-0.54 (BEAKER) (test code = 416) BASOPHILS ABSOLUTE COUNT (BEAKER) 0.02 K/ L 0.01-0.08 (test code = 417) IMMATURE GRANULOCYTES-RELATIVE 0 % 0-1 PERCENT (BEAKER) (test code = 2801) TACROLIMUS [id number] 11:01:00 Test Item Value Reference Range Interpretation Comments TACROLIMUS BLOOD (BEAKER) (test 7.6 ng/mL 10.0-20.0 L code = 657) BASIC METABOLIC [id number] 10:44:00 Test Item Value Reference Range Interpretation Comments SODIUM (BEAKER) 138 meq/L 136-145 (test code = 381) POTASSIUM (BEAKER) 3.8 meq/L 3.5-5.1 (test code = 379) CHLORIDE (BEAKER) 106 meq/L 98-107 (test code = 382) CO2 (BEAKER) (test 24 meq/L 22-29 code = 355) BLOOD UREA NITROGEN 10 mg/dL 7-21 (BEAKER) (test code = 354) CREATININE (BEAKER) 0.57 mg/dL 0.57-1.25 (test code = 358) GLUCOSE RANDOM 92 mg/dL 70-105 (BEAKER) (test code = 652) CALCIUM (BEAKER) 9.2 mg/dL 8.4-10.2 (test code = 697) EGFR (BEAKER) (test 174 mL/min/1.73 ESTIM ATED GFR IS code = 1092) sq m NOT ACCURATE CREATININE CLEARANCE IN PREDICTING GLOMERULAR FILTRATION RATE . ESTIMATED GFR I S NOT APPLICABLE FOR DIALYSIS PATIEN TS. Specimen slightly ictericLIPID [id number] 10:44:00 Test Item Value Reference Range Interpretation Comments TRIGLYCERIDES (BEAKER) (test code = 44 mg/dL 540) CHOLESTEROL (BEAKER) (test code = 136 mg/dL 631) HDL CHOLESTEROL (BEAKER) (test code 46 mg/dL = 976) LDL CHOLESTEROL CALCULATED (BEAKER) 81 mg/dL (test code = 633) Triglyceride Reference Range: Low Risk <150 Borderline 150-199 High Risk 200- 499 Very High Risk >=500Cholesterol Reference Range: Low Risk <200 Borderline 200-239 High Risk >240HDL Cholesterol Reference Range: Low Risk >=60 High Risk <40LDL Cholesterol Reference Range: Optimal <100 Near Optimal 100-129 Borderline 130-159 High 160-189 Very High >=190 Specimen slightly ictericHEPATIC FUNCTION [id number] 10:44:00 Test Item Value Reference Range Interpretation Comments TOTAL PROTEIN (BEAKER) (test code = 7.0 gm/dL 6.0-8.3 770) ALBUMIN (BEAKER) (test code = 1145) 4.2 g/dL 3.5-5.0 BILIRUBIN TOTAL (BEAKER) (test code 3.0 mg/dL 0.2-1.2 H = 377) BILIRUBIN DIRECT (BEAKER) (test 0.5 mg/dL 0.1-0.5 code = 706) ALKALINE PHOSPHATASE (BEAKER) (test 79 U/L 40-150 code = 346) AST (SGOT) (BEAKER) (test code = 266 U/L 5-34 H 353) ALT (SGPT) (BEAKER) (test code = 238 U/L 6-55 H 347) Specimen slightly [id number] 10:38:00 Test Item Value Reference Range Interpretation Comments THYROID STIMULATING HORMONE 0.64 uIU/mL 0.35-4.94 (BEAKER) (test code = 772) B-TYPE NATRIURETIC FACTOR (BNP)2018-09-04 10:32:00 Test Item Value Reference Range Interpretation Comments B-TYPE NATRIURETIC PEPTIDE (BEAKER) 37 pg/mL 0-100 (test code = 700) CBC W/PLT COUNT & AUTO [id number] 10:01:00 Test Item Value Reference Range Interpretation Comments WHITE BLOOD CELL COUNT (BEAKER) 5.9 K/ L 3.5-10.5 (test code = 775) RED BLOOD CELL COUNT (BEAKER) 5.22 M/ L 4.63-6.08 (test code = 761) HEMOGLOBIN (BEAKER) (test code = 15.8 GM/DL 13.7-17.5 410) HEMATOCRIT (BEAKER) (test code = 46.1 % 40.1-51.0 411) MEAN CORPUSCULAR VOLUME (BEAKER) 88.3 fL 79.0-92.2 (test code = 753) MEAN CORPUSCULAR HEMOGLOBIN 30.3 pg 25.7-32.2 (BEAKER) (test code = 751) MEAN CORPUSCULAR HEMOGLOBIN CONC 34.3 GM/DL 32.3-36.5 (BEAKER) (test code = 752) RED CELL DISTRIBUTION WIDTH 12.9 % 11.6-14.4 (BEAKER) (test code = 412) PLATELET COUNT (BEAKER) (test 193 K/CU MM 150-450 code = 756) MEAN PLATELET VOLUME (BEAKER) 11.0 fL 9.4-12.4 (test code = 754) NUCLEATED RED BLOOD CELLS 0 /100 WBC 0-0 (BEAKER) (test code = 413) NEUTROPHILS RELATIVE PERCENT 55 % (BEAKER) (test code = 429) LYMPHOCYTES RELATIVE PERCENT 31 % (BEAKER) (test code = 430) MONOCYTES RELATIVE PERCENT 12 % (BEAKER) (test code = 431) EOSINOPHILS RELATIVE PERCENT 2 % (BEAKER) (test code = 432) BASOPHILS RELATIVE PERCENT 1 % (BEAKER) (test code = 437) NEUTROPHILS ABSOLUTE COUNT 3.26 K/ L 1.78-5.38 (BEAKER) (test code = 670) LYMPHOCYTES ABSOLUTE COUNT 1.85 K/ L 1.32-3.57 (BEAKER) (test code = 414) MONOCYTES ABSOLUTE COUNT (BEAKER) 0.69 K/ L 0.30-0.82 (test code = 415) EOSINOPHILS ABSOLUTE COUNT 0.09 K/ L 0.04-0.54 (BEAKER) (test code = 416) BASOPHILS ABSOLUTE COUNT (BEAKER) 0.03 K/ L 0.01-0.08 (test code = 417) IMMATURE GRANULOCYTES-RELATIVE 0 % 0-1 PERCENT (BEAKER) (test code = 2801) TACROLIMUS [id number] 14:38:00 Test Item Value Reference Range Interpretation Comments TACROLIMUS BLOOD (BEAKER) (test 9.0 ng/mL 10.0-20.0 L code = 657) U/S, ABDOMINAL, [id number] 11:58:00Referring: Dr. Yee Graves elastographyReason for Exam:->with elastography, abnormal liverenzymesFINAL REPORT Ultrasound of the abdomen. Hepatic Elastography. Clinical History:with elastography, abnormal liver enzymes. Comparison study: Ultrasound dated November 14, 2016. CT scan dated May 04, 2016 Findings: The liver is homogeneous in echotexture with no focal masses. It measures 13.8 cm in length. There is no evidence of intra or extrahepatic biliary dilatation with thecommon bile duct measuring three mm. The main portal vein diameter is 1.1 cm. The gallbladder is unremarkable with no gallstones or sonographic evidence of cholecystitis. The spleen measures 10.4 cm and is unremarkable. The pancreas is within normal limits. No ascites is present. The right kidney measures 10.2 cm and left kidney measures 10.9 cm, both within normal limits. The proximal aorta and IVC are unremarkable. No pleural effusions are seen. Elastography of the liver was performed. The assessment of liver tissue stiffness is the following.Average liver stiffness is 0.99 m/s.Standard deviationis 0.35 m/s.Median liver stiffness is 1.03 m/s. The findings correlate with no liver fibrosis. Liverfibrosis Liver Bx Score ShearWave velocity(m/s) Normal F0 0.82 - 1.23Normal - Mild F0 - F1 1.23 - 1.38Mild - Moderate F2 - F3 1.38 - 2.00Moderate - Severe F3 - F4 2.0 - 2.65Severe F4 >2.65 Impression: 1. Unremarkable abdominal ultrasound. 2. Normal hepatic Elastography measurements. Signed: [facility] Verified Date/Time: 06/04/2018 11:58:37 Reading Location: [address] Radiology Reading Room COMPREHENSIVE METABOLIC [id number] 11:05:00 Test Item Value Reference Range Interpretation Comments TOTAL PROTEIN 7.7 gm/dL 6.0-8.3 (BEAKER) (test code = 770) ALBUMIN (BEAKER) 4.6 g/dL 3.5-5.0 (test code = 1145) ALKALINE PHOSPHATASE 94 U/L 40-150 (BEAKER) (test code = 346) BILIRUBIN TOTAL 2.6 mg/dL 0.2-1.2 H (BEAKER) (test code = 377) SODIUM (BEAKER) (test 137 meq/L 136-145 code = 381) POTASSIUM (BEAKER) 4.0 meq/L 3.5-5.1 (test code = 379) CHLORIDE (BEAKER) 103 meq/L 98-107 (test code = 382) CO2 (BEAKER) (test 26 meq/L 22-29 code = 355) BLOOD UREA NITROGEN 10 mg/dL 7-21 (BEAKER) (test code = 354) CREATININE (BEAKER) 0.65 mg/dL 0.57-1.25 (test code = 358) GLUCOSE RANDOM 87 mg/dL 70-105 (BEAKER) (test code = 652) CALCIUM (BEAKER) 9.4 mg/dL 8.4-10.2 (test code = 697) AST (SGOT) (BEAKER) 283 U/L 5-34 H (test code = 353) ALT (SGPT) (BEAKER) 243 U/L 6-55 H (test code = 347) EGFR (BEAKER) (test 150 ESTIMATE D GFR IS code = 1092) mL/min/1.73 sq NOT ACCURA TE m CREATININE CLEARANCE IN PREDICTING GLOMERULAR FILTRATION RATE . ESTIMATED GFR I S NOT APPLICABLE FOR DIALYSIS PATIEN TS. Specimen slightly ictericCBC W/PLT COUNT & AUTO [id number] 10:22:00 Test Item Value Reference Range Interpretation Comments WHITE BLOOD CELL COUNT (BEAKER) 6.3 K/ L 3.5-10.5 (test code = 775) RED BLOOD CELL COUNT (BEAKER) 5.40 M/ L 4.63-6.08 (test code = 761) HEMOGLOBIN (BEAKER) (test code = 15.7 GM/DL 13.7-17.5 410) HEMATOCRIT (BEAKER) (test code = 47.5 % 40.1-51.0 411) MEAN CORPUSCULAR VOLUME (BEAKER) 88.0 fL 79.0-92.2 (test code = 753) MEAN CORPUSCULAR HEMOGLOBIN 29.1 pg 25.7-32.2 (BEAKER) (test code = 751) MEAN CORPUSCULAR HEMOGLOBIN CONC 33.1 GM/DL 32.3-36.5 (BEAKER) (test code = 752) RED CELL DISTRIBUTION WIDTH 13.0 % 11.6-14.4 (BEAKER) (test code = 412) PLATELET COUNT (BEAKER) (test 200 K/CU MM 150-450 code = 756) MEAN PLATELET VOLUME (BEAKER) 11.3 fL 9.4-12.4 (test code = 754) NUCLEATED RED BLOOD CELLS 0 /100 WBC 0-0 (BEAKER) (test code = 413) NEUTROPHILS RELATIVE PERCENT 50 % (BEAKER) (test code = 429) LYMPHOCYTES RELATIVE PERCENT 36 % (BEAKER) (test code = 430) MONOCYTES RELATIVE PERCENT 12 % (BEAKER) (test code = 431) EOSINOPHILS RELATIVE PERCENT 2 % (BEAKER) (test code = 432) BASOPHILS RELATIVE PERCENT 0 % (BEAKER) (test code = 437) NEUTROPHILS ABSOLUTE COUNT 3.16 K/ L 1.78-5.38 (BEAKER) (test code = 670) LYMPHOCYTES ABSOLUTE COUNT 2.31 K/ L 1.32-3.57 (BEAKER) (test code = 414) MONOCYTES ABSOLUTE COUNT (BEAKER) 0.74 K/ L 0.30-0.82 (test code = 415) EOSINOPHILS ABSOLUTE COUNT 0.10 K/ L 0.04-0.54 (BEAKER) (test code = 416) BASOPHILS ABSOLUTE COUNT (BEAKER) 0.02 K/ L 0.01-0.08 (test code = 417) IMMATURE GRANULOCYTES-RELATIVE 0 % 0-1 PERCENT (BEAKER) (test code = 2801) TACROLIMUS [id number] 16:11:00 Test Item Value Reference Range Interpretation Comments TACROLIMUS BLOOD (BEAKER) (test 6.9 ng/mL 10.0-20.0 L code = 657) [id number] 14:21:00 Test Item Value Reference Range Interpretation Comments MAGNESIUM (BEAKER) (test code = 1.8 mg/dL 1.6-2.6 627) COMPREHENSIVE METABOLIC [id number] 13:51:00 Test Item Value Reference Range Interpretation Comments TOTAL PROTEIN 7.5 gm/dL 6.0-8.3 (BEAKER) (test code = 770) ALBUMIN (BEAKER) 4.3 g/dL 3.5-5.0 (test code = 1145) ALKALINE PHOSPHATASE 103 U/L 40-150 (BEAKER) (test code = 346) BILIRUBIN TOTAL 2.9 mg/dL 0.2-1.2 H (BEAKER) (test code = 377) SODIUM (BEAKER) (test 139 meq/L 136-145 code = 381) POTASSIUM (BEAKER) 4.2 meq/L 3.5-5.1 (test code = 379) CHLORIDE (BEAKER) 105 meq/L 98-107 (test code = 382) CO2 (BEAKER) (test 27 meq/L 22-29 code = 355) BLOOD UREA NITROGEN 8 mg/dL 7-21 (BEAKER) (test code = 354) CREATININE (BEAKER) 0.57 mg/dL 0.57-1.25 (test code = 358) GLUCOSE RANDOM 90 mg/dL 70-105 (BEAKER) (test code = 652) CALCIUM (BEAKER) 9.2 mg/dL 8.4-10.2 (test code = 697) AST (SGOT) (BEAKER) 333 U/L 5-34 H (test code = 353) ALT (SGPT) (BEAKER) 316 U/L 6-55 H (test code = 347) EGFR (BEAKER) (test 174 ESTIMATE D GFR IS code = 1092) mL/min/1.73 sq NOT ACCURA TE m CREATININE CLEARANCE IN PREDICTING GLOMERULAR FILTRATION RATE . ESTIMATED GFR I S NOT APPLICABLE FOR DIALYSIS PATIEN TS. Specimen slightly ictericCBC W/PLT COUNT & AUTO [id number] 12:50:00 Test Item Value Reference Range Interpretation Comments WHITE BLOOD CELL COUNT (BEAKER) 5.1 K/ L 3.5-10.5 (test code = 775) RED BLOOD CELL COUNT (BEAKER) 5.30 M/ L 4.63-6.08 (test code = 761) HEMOGLOBIN (BEAKER) (test code = 15.1 GM/DL 13.7-17.5 410) HEMATOCRIT (BEAKER) (test code = 44.5 % 40.1-51.0 411) MEAN CORPUSCULAR VOLUME (BEAKER) 84.0 fL 79.0-92.2 (test code = 753) MEAN CORPUSCULAR HEMOGLOBIN 28.5 pg 25.7-32.2 (BEAKER) (test code = 751) MEAN CORPUSCULAR HEMOGLOBIN CONC 33.9 GM/DL 32.3-36.5 (BEAKER) (test code = 752) RED CELL DISTRIBUTION WIDTH 14.1 % 11.6-14.4 (BEAKER) (test code = 412) PLATELET COUNT (BEAKER) (test 191 K/CU MM 150-450 code = 756) MEAN PLATELET VOLUME (BEAKER) 11.0 fL 9.4-12.4 (test code = 754) NUCLEATED RED BLOOD CELLS 0 /100 WBC 0-0 (BEAKER) (test code = 413) NEUTROPHILS RELATIVE PERCENT 56 % (BEAKER) (test code = 429) LYMPHOCYTES RELATIVE PERCENT 26 % (BEAKER) (test code = 430) MONOCYTES RELATIVE PERCENT 13 % (BEAKER) (test code = 431) EOSINOPHILS RELATIVE PERCENT 4 % (BEAKER) (test code = 432) BASOPHILS RELATIVE PERCENT 0 % (BEAKER) (test code = 437) NEUTROPHILS ABSOLUTE COUNT 2.87 K/ L 1.78-5.38 (BEAKER) (test code = 670) LYMPHOCYTES ABSOLUTE COUNT 1.33 K/ L 1.32-3.57 (BEAKER) (test code = 414) MONOCYTES ABSOLUTE COUNT (BEAKER) 0.68 K/ L 0.30-0.82 (test code = 415) EOSINOPHILS ABSOLUTE COUNT 0.21 K/ L 0.04-0.54 (BEAKER) (test code = 416) BASOPHILS ABSOLUTE COUNT (BEAKER) 0.02 K/ L 0.01-0.08 (test code = 417) IMMATURE GRANULOCYTES-RELATIVE 0 % 0-1 PERCENT (BEAKER) (test code = 2801) RAD, CHEST, 2 [id number] 11:54:00Referring: Dr. Yee Wynne for Exam:->heart transplant annual follow upFINAL REPORT Chest two views compared to July 12, 2017 Discussion: Lungs clear. Heart size normal. No effusion or pneumothorax. There are sternotomy changes and a left chest pacemaker with clipped leads. Signed: Alicia Avitia Verified Date/Time: 09/14/2017 11:54:58 Reading Location: [facility] Radiology Reading Room RAD, BONE DENSITY [id number] 09:35:00Referring: Dr. Yee Wynne for Exam:->risk for osteopeniaFINAL REPORT Bone mineral density study 09/14/2017. History Provided: Wrist forosteopenia COMPARISON: 03/06/2016 FINDINGS: Evaluation of the left and right femoral necks and lumbar s pine was performed utilizing a [employer] bone densitometer. Data reflect young adult matched T-scores and age-matched Z scores. IMPRESSION: The left femoral neck bone mineral density is 0.900gm/cm2, the T-score is -1.3, and the Z-score is -0.8. This is suggestive of osteopenia. The right femoral neck total bone mineral density is 0.871gm/cm2, the T-score is -1.5, and the Z-score is -1.0. This is suggestive of osteopenia. The lumbar spine total bone mineral density is 1.281gm/cm2, the T-score is 0.5, and the Z-score is 1.5. Compared to the prior exam, the bone mineral density of the lumbar spine demonstrates a 2.4% increase. The bone density of the left femoral neck demonstrates a 2.3% decrease. The bone mineral density of the right femoral neck demonstrates a 5.2% decrease. Signed:Gerson Hernandez MDReport Verified Date/Time: 09/14/2017 09:35:28 Reading Location: [facility] TISSUE [id number] 16:26:00Surgical Pathology Report Case: [id number] Authorizing Provider: Saleem Donald MD Collected: 09/11/2017 1404 Ordering Location: [facility] [place] [facility]HER[facility] VASCULAR TECH [facility] Received: 09/11/2017 1655 Pathologist: Clarence Murillo MD Specimen: Heart HEART, RIGHT VENTRICLE, ENDOMYOCARDIAL BIOPSY:MILD ACUTE CELLULAR REJECTION (ISHLT 1R)QUILTY MYCTFHZ2O IMMUNOFLUORESCENCE STAINING IS NEGATIVE (AMR 0) Signing Pathologist rBittany gomez Phone Line: [phone] signed by Clarence Murillo MD on 09/12/2017 at 4:26 PMPreliminary result electronically signed by Clarence Murillo MD on 09/12/2017 at 12:56 PMThe preliminary results were reported to the heart transaction coordinator on 09/12/17 at 12:15 PM. The final results were reported to heart transaction coordinator on 09/15/17 at 4:24 PM.[id number]; [id number]. HeartIn formalin labeled "heart" are three irregular dark brown fragments of soft tissue measuring 0.6 x 0.6 x 0.1 cm in aggregate. The specimen is entirely submitted in cassette A1. Also received in saline labeled "heart" is a 0.3 cm in greatest dimension dark brown irregular fragments of soft tissue which is frozen and entirely submitted for immunofluorescence study.PerformedTACROLIMUS LEVEL 2017-09-11 17:17:00 Test Item Value Reference Range Interpretation Comments TACROLIMUS BLOOD (BEAKER) (test 7.3 ng/mL 10.0-20.0 L code = 657) LIPID [id number] 11:22:00 Test Item Value Reference Range Interpretation Comments TRIGLYCERIDES (BEAKER) (test code = 65 mg/dL 540) CHOLESTEROL (BEAKER) (test code = 146 mg/dL 631) HDL CHOLESTEROL (BEAKER) (test code 53 mg/dL = 976) LDL CHOLESTEROL CALCULATED (BEAKER) 80 mg/dL (test code = 633) Triglyceride Reference Range: Low Risk <150 Borderline 150-199 High Risk 200- 499 Very High Risk >=500Cholesterol Reference Range: Low Risk <200 Borderline 200-239 High Risk >240HDL Cholesterol Reference Range: Low Risk >=60 High Risk <40LDL Cholesterol Reference Range: Optimal <100 Near Optimal 100-129 Borderline 130-159 High 160-189 Very High >=190 Specimen slightly ictericCOMPREHENSIVE METABOLIC [id number] 11:22:00 Test Item Value Reference Range Interpretation Comments TOTAL PROTEIN 7.1 gm/dL 6.0-8.3 (BEAKER) (test code = 770) ALBUMIN (BEAKER) 4.2 g/dL 3.5-5.0 (test code = 1145) ALKALINE PHOSPHATASE 84 U/L 40-150 (BEAKER) (test code = 346) BILIRUBIN TOTAL 3.4 mg/dL 0.2-1.2 H (BEAKER) (test code = 377) SODIUM (BEAKER) (test 141 meq/L 136-145 code = 381) POTASSIUM (BEAKER) 3.7 meq/L 3.5-5.1 (test code = 379) CHLORIDE (BEAKER) 107 meq/L 98-107 (test code = 382) CO2 (BEAKER) (test 28 meq/L 22-29 code = 355) BLOOD UREA NITROGEN 12 mg/dL 7-21 (BEAKER) (test code = 354) CREATININE (BEAKER) 0.57 mg/dL 0.57-1.25 (test code = 358) GLUCOSE RANDOM 88 mg/dL 70-105 (BEAKER) (test code = 652) CALCIUM (BEAKER) 9.0 mg/dL 8.4-10.2 (test code = 697) AST (SGOT) (BEAKER) 299 U/L 5-34 H (test code = 353) ALT (SGPT) (BEAKER) 258 U/L 6-55 H (test code = 347) EGFR (BEAKER) (test 176 ESTIMATE D GFR IS code = 1092) mL/min/1.73 sq NOT ACCURA TE m CREATININE CLEARANCE IN PREDICTING GLOMERULAR FILTRATION RATE . ESTIMATED GFR I S NOT APPLICABLE FOR DIALYSIS PATIEN TS. Specimen slightly ictericHEPATIC FUNCTION [id number] 11:22:00 Test Item Value Reference Range Interpretation Comments TOTAL PROTEIN (BEAKER) (test code = 7.1 gm/dL 6.0-8.3 770) ALBUMIN (BEAKER) (test code = 1145) 4.2 g/dL 3.5-5.0 BILIRUBIN TOTAL (BEAKER) (test code 3.4 mg/dL 0.2-1.2 H = 377) BILIRUBIN DIRECT (BEAKER) (test 0.3 mg/dL 0.1-0.5 code = 706) ALKALINE PHOSPHATASE (BEAKER) (test 84 U/L 40-150 code = 346) AST (SGOT) (BEAKER) (test code = 299 U/L 5-34 H 353) ALT (SGPT) (BEAKER) (test code = 258 U/L 6-55 H 347) Specimen slightly ictericCBC W/PLT COUNT & AUTO [id number] 10:42:00 Test Item Value Reference Range Interpretation Comments WHITE BLOOD CELL COUNT (BEAKER) 5.8 K/ L 3.5-10.5 (test code = 775) RED BLOOD CELL COUNT (BEAKER) 5.12 M/ L 4.63-6.08 (test code = 761) HEMOGLOBIN (BEAKER) (test code = 14.2 GM/DL 13.7-17.5 410) HEMATOCRIT (BEAKER) (test code = 43.2 % 40.1-51.0 411) MEAN CORPUSCULAR VOLUME (BEAKER) 84.4 fL 79.0-92.2 (test code = 753) MEAN CORPUSCULAR HEMOGLOBIN 27.7 pg 25.7-32.2 (BEAKER) (test code = 751) MEAN CORPUSCULAR HEMOGLOBIN CONC 32.9 GM/DL 32.3-36.5 (BEAKER) (test code = 752) RED CELL DISTRIBUTION WIDTH 13.7 % 11.6-14.4 (BEAKER) (test code = 412) PLATELET COUNT (BEAKER) (test 192 K/CU MM 150-450 code = 756) MEAN PLATELET VOLUME (BEAKER) 11.4 fL 9.4-12.4 (test code = 754) NUCLEATED RED BLOOD CELLS 0 /100 WBC 0-0 (BEAKER) (test code = 413) NEUTROPHILS RELATIVE PERCENT 56 % (BEAKER) (test code = 429) LYMPHOCYTES RELATIVE PERCENT 28 % (BEAKER) (test code = 430) MONOCYTES RELATIVE PERCENT 14 % (BEAKER) (test code = 431) EOSINOPHILS RELATIVE PERCENT 1 % (BEAKER) (test code = 432) BASOPHILS RELATIVE PERCENT 1 % (BEAKER) (test code = 437) NEUTROPHILS ABSOLUTE COUNT 3.23 K/ L 1.78-5.38 (BEAKER) (test code = 670) LYMPHOCYTES ABSOLUTE COUNT 1.60 K/ L 1.32-3.57 (BEAKER) (test code = 414) MONOCYTES ABSOLUTE COUNT (BEAKER) 0.81 K/ L 0.30-0.82 (test code = 415) EOSINOPHILS ABSOLUTE COUNT 0.08 K/ L 0.04-0.54 (BEAKER) (test code = 416) BASOPHILS ABSOLUTE COUNT (BEAKER) 0.03 K/ L 0.01-0.08 (test code = 417) IMMATURE GRANULOCYTES-RELATIVE 0 % 0-1 PERCENT (BEAKER) (test code = 2801) TACROLIMUS [id number] 18:51:00 Test Item Value Reference Range Interpretation Comments TACROLIMUS BLOOD (BEAKER) (test 7.5 ng/mL 10.0-20.0 L code = 657) CMV PCR, [id number] 15:39:00 Test Item Value Reference Range Interpretation Comments CMV VIRAL LOAD - Negative or below the NEGATIVE (BEAKER) (test linear range of the code = 9918) assay (<375 copies/mL) Cytomegalovirus (CMV) infection can cause significant disease in immunosuppressed patients. However,it is common for CMV to manifest as a limited infection which is of no clinical significance in immunosuppressed patients or in healthy individuals.Viral load measurements are helpful to identify clinical CMV infection and to guide the pre-emptive management of antiviral therapy. For treatment of CMV infection due to reactivation in transplant recipients, a threshold between 4,000 and 5,000 copies/mLis suggested. For treatment of primary CMV infection, a lower threshold can be used.CMV infection may also be monitored using weekly serial measurements. Serial measurements of CMV DNA viral load can be evaluated by identifying a 10-fold change, as well as assessing the CMV DNA viral load and the clinical context for each patient.The plasma CMV DNA viral load was detected using quantitative polymerase chain reaction and fluorescent monitoring of a specific hybridized probe. Genetic variation and other factors can affect the accuracy of nucleic acid testing. Therefore, the results should be interpreted in light of clinical data. A negative result may not exclude the presence of CMV disease.This test was developed and its performance characteristics determined by the [facility] Pathol ogy Department, Section of Molecular Pathology. It has not been cleared or approved by the U.S. Foodand Drug Administration (FDA), since FDA approval is not required for clinical use of the test. Validation was done as required by The Clinical Laboratory Improvement Amendments of 1988.BASIC METABOLIC PANEL 2017-08-07 09:10:00 Test Item Value Reference Range Interpretation Comments SODIUM (BEAKER) 139 meq/L 136-145 (test code = 381) POTASSIUM (BEAKER) 4.0 meq/L 3.5-5.1 (test code = 379) CHLORIDE (BEAKER) 107 meq/L 98-107 (test code = 382) CO2 (BEAKER) (test 24 meq/L 22-29 code = 355) BLOOD UREA NITROGEN 8 mg/dL 7-21 (BEAKER) (test code = 354) CREATININE (BEAKER) 0.58 mg/dL 0.57-1.25 (test code = 358) GLUCOSE RANDOM 94 mg/dL 70-105 (BEAKER) (test code = 652) CALCIUM (BEAKER) 9.1 mg/dL 8.4-10.2 (test code = 697) EGFR (BEAKER) (test 172 mL/min/1.73 ESTIM ATED GFR IS code = 1092) sq m NOT ACCURATE CREATININE CLEARANCE IN PREDICTING GLOMERULAR FILTRATION RATE . ESTIMATED GFR I S NOT APPLICABLE FOR DIALYSIS PATIEN TS. Specimen slightly ictericHEPATIC FUNCTION [id number] 09:10:00 Test Item Value Reference Range Interpretation Comments TOTAL PROTEIN (BEAKER) (test code = 7.0 gm/dL 6.0-8.3 770) ALBUMIN (BEAKER) (test code = 1145) 4.1 g/dL 3.5-5.0 BILIRUBIN TOTAL (BEAKER) (test code 2.8 mg/dL 0.2-1.2 H = 377) BILIRUBIN DIRECT (BEAKER) (test 0.6 mg/dL 0.1-0.5 H code = 706) ALKALINE PHOSPHATASE (BEAKER) (test 101 U/L 40-150 code = 346) AST (SGOT) (BEAKER) (test code = 274 U/L 5-34 H 353) ALT (SGPT) (BEAKER) (test code = 285 U/L 6-55 H 347) Specimen slightly ictericCBC W/PLT COUNT & AUTO [id number] 08:57:00 Test Item Value Reference Range Interpretation Comments WHITE BLOOD CELL COUNT (BEAKER) 5.6 K/ L 3.5-10.5 (test code = 775) RED BLOOD CELL COUNT (BEAKER) 5.43 M/ L 4.63-6.08 (test code = 761) HEMOGLOBIN (BEAKER) (test code = 15.0 GM/DL 13.7-17.5 410) HEMATOCRIT (BEAKER) (test code = 45.2 % 40.1-51.0 411) MEAN CORPUSCULAR VOLUME (BEAKER) 83.2 fL 79.0-92.2 (test code = 753) MEAN CORPUSCULAR HEMOGLOBIN 27.6 pg 25.7-32.2 (BEAKER) (test code = 751) MEAN CORPUSCULAR HEMOGLOBIN CONC 33.2 GM/DL 32.3-36.5 (BEAKER) (test code = 752) RED CELL DISTRIBUTION WIDTH 13.3 % 11.6-14.4 (BEAKER) (test code = 412) PLATELET COUNT (BEAKER) (test 234 K/CU MM 150-450 code = 756) MEAN PLATELET VOLUME (BEAKER) 11.0 fL 9.4-12.4 (test code = 754) NUCLEATED RED BLOOD CELLS 0 /100 WBC 0-0 (BEAKER) (test code = 413) NEUTROPHILS RELATIVE PERCENT 58 % (BEAKER) (test code = 429) LYMPHOCYTES RELATIVE PERCENT 28 % (BEAKER) (test code = 430) MONOCYTES RELATIVE PERCENT 12 % (BEAKER) (test code = 431) EOSINOPHILS RELATIVE PERCENT 2 % (BEAKER) (test code = 432) BASOPHILS RELATIVE PERCENT 1 % (BEAKER) (test code = 437) NEUTROPHILS ABSOLUTE COUNT 3.20 K/ L 1.78-5.38 (BEAKER) (test code = 670) LYMPHOCYTES ABSOLUTE COUNT 1.54 K/ L 1.32-3.57 (BEAKER) (test code = 414) MONOCYTES ABSOLUTE COUNT (BEAKER) 0.68 K/ L 0.30-0.82 (test code = 415) EOSINOPHILS ABSOLUTE COUNT 0.09 K/ L 0.04-0.54 (BEAKER) (test code = 416) BASOPHILS ABSOLUTE COUNT (BEAKER) 0.03 K/ L 0.01-0.08 (test code = 417) IMMATURE GRANULOCYTES-RELATIVE 0 % 0-1 PERCENT (BEAKER) (test code = 2801) RAD, CHEST, 2 [id number] 13:51:00Referring: Dr. Yee Wynne for Exam:->productive cough in post transplant patientFINAL REPORT Chest, frontal and lateral. History provided: Productive cough in post transplant patient. Comparison: 10/04/2016. Findings: Postsurgical changes of median sternotomy are noted. A truncated left chest wall pacing device is noted as before. The lungs are clear without evidence of focal consolidation. No pneumothorax or significant pleural fluid is identified. The cardiomediastinal silhouette is within normal limits. No acute osseous abnormality is identified. The soft tissues are unremarkable. IMPRESSION: No acute cardiopulmonary disease. Signed: Gerson Hernandez MDReport Verified Date/Time: 07/12/2017 13:51:51 [facility] TACROLIMUS [id number] 13:41:00 Test Item Value Reference Range Interpretation Comments TACROLIMUS BLOOD (BEAKER) (test 10.8 ng/mL 10.0-20.0 code = 657) CT, MAXILLOFACIAL AREA, [id number] 13:24:00Referring: Dr. Yee Garcia FINAL REPORT CT face with contrast 07/12/2017 1:22 PM CLINICAL HISTORY: sinusitis in immunosuppressed patient COMPARISON: None available TECHNIQUE: Axial contrast-enhanced CT images of the face were obtained. Axially acquired data were reformatted in coronal and sagittal planes for further analysis. This examination was performed according to our departmental dose optimization program, which includes automated exposure control, adjustment of the mA and/or kV according to patientsize, and/or use of iterated reconstruction technique. 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 The remaining paranasal sinuses are pneumatized. There is no sinus based mass. There is diffuse paranasal sinus mucosal thickening, with layering fluid in the right frontal and left maxillary sinuses. There is subtotal opacification of the right maxillary sinus. There are bilateral maxillary antrostomies. There is narrowing of both maxillary infundibula. The frontal sinus drainage pathwaysand sphenoethmoidal recesses are patent. The visualized brain, orbits, and facial soft tissue are unremarkable. IMPRESSION: Findings support a clinical diagnosis of multifocal acute sinusitis. Signed: Francis Emanuel Verified Date/Time: 07/12/2017 13:24:38 Reading Location: [facility] Radiology Reading Room [facility] METABOLIC [id number] 11:10:00 Test Item Value Reference Range Interpretation Comments SODIUM (BEAKER) 138 meq/L 136-145 (test code = 381) POTASSIUM (BEAKER) 4.7 meq/L 3.5-5.1 (test code = 379) CHLORIDE (BEAKER) 103 meq/L 98-107 (test code = 382) CO2 (BEAKER) (test 26 meq/L 22-29 code = 355) BLOOD UREA NITROGEN 14 mg/dL 7-21 (BEAKER) (test code = 354) CREATININE (BEAKER) 0.65 mg/dL 0.57-1.25 (test code = 358) GLUCOSE RANDOM 82 mg/dL 70-105 (BEAKER) (test code = 652) CALCIUM (BEAKER) 9.5 mg/dL 8.4-10.2 (test code = 697) EGFR (BEAKER) (test 151 mL/min/1.73 ESTIM ATED GFR IS code = 1092) sq m NOT ACCURATE CREATININE CLEARANCE IN PREDICTING GLOMERULAR FILTRATION RATE . ESTIMATED GFR I S NOT APPLICABLE FOR DIALYSIS PATIEN TS. Specimen moderately ictericHEPATIC FUNCTION [id number] 11:10:00 Test Item Value Reference Range Interpretation Comments TOTAL PROTEIN (BEAKER) (test code = 7.7 gm/dL 6.0-8.3 770) ALBUMIN (BEAKER) (test code = 1145) 4.5 g/dL 3.5-5.0 BILIRUBIN TOTAL (BEAKER) (test code 4.7 mg/dL 0.2-1.2 H = 377) BILIRUBIN DIRECT (BEAKER) (test 0.4 mg/dL 0.1-0.5 code = 706) ALKALINE PHOSPHATASE (BEAKER) (test 104 U/L 40-150 code = 346) AST (SGOT) (BEAKER) (test code = 295 U/L 5-34 H 353) ALT (SGPT) (BEAKER) (test code = 290 U/L 6-55 H 347) Specimen moderately ictericCBC W/PLT COUNT & AUTO [id number] 10:59:00 Test Item Value Reference Range Interpretation Comments WHITE BLOOD CELL COUNT (BEAKER) 4.3 K/ L 3.5-10.5 (test code = 775) RED BLOOD CELL COUNT (BEAKER) 5.46 M/ L 4.63-6.08 (test code = 761) HEMOGLOBIN (BEAKER) (test code = 15.2 GM/DL 13.7-17.5 410) HEMATOCRIT (BEAKER) (test code = 46.6 % 40.1-51.0 411) MEAN CORPUSCULAR VOLUME (BEAKER) 85.3 fL 79.0-92.2 (test code = 753) MEAN CORPUSCULAR HEMOGLOBIN 27.8 pg 25.7-32.2 (BEAKER) (test code = 751) MEAN CORPUSCULAR HEMOGLOBIN CONC 32.6 GM/DL 32.3-36.5 (BEAKER) (test code = 752) RED CELL DISTRIBUTION WIDTH 13.7 % 11.6-14.4 (BEAKER) (test code = 412) PLATELET COUNT (BEAKER) (test 203 K/CU MM 150-450 code = 756) MEAN PLATELET VOLUME (BEAKER) 11.3 fL 9.4-12.4 (test code = 754) NUCLEATED RED BLOOD CELLS 0 /100 WBC 0-0 (BEAKER) (test code = 413) NEUTROPHILS RELATIVE PERCENT 46 % (BEAKER) (test code = 429) LYMPHOCYTES RELATIVE PERCENT 34 % (BEAKER) (test code = 430) MONOCYTES RELATIVE PERCENT 18 % (BEAKER) (test code = 431) EOSINOPHILS RELATIVE PERCENT 1 % (BEAKER) (test code = 432) BASOPHILS RELATIVE PERCENT 1 % (BEAKER) (test code = 437) NEUTROPHILS ABSOLUTE COUNT 1.99 K/ L 1.78-5.38 (BEAKER) (test code = 670) LYMPHOCYTES ABSOLUTE COUNT 1.47 K/ L 1.32-3.57 (BEAKER) (test code = 414) MONOCYTES ABSOLUTE COUNT (BEAKER) 0.79 K/ L 0.30-0.82 (test code = 415) EOSINOPHILS ABSOLUTE COUNT 0.03 K/ L 0.04-0.54 L (BEAKER) (test code = 416) BASOPHILS ABSOLUTE COUNT (BEAKER) 0.02 K/ L 0.01-0.08 (test code = 417) IMMATURE GRANULOCYTES-RELATIVE 0 % 0-1 PERCENT (BEAKER) (test code = 2801) TISSUE [id number] 19:08:00Surgical Pathology Report Case: [id number] Authorizing Provider: Saleem Donald MD Collected: 03/06/2017 1053 Ordering Location: [facility] VASCULAR [facility] Received: 03/06/2017 1116 Pathologist: Clarence Murillo MD Specimen: Heart, x1 for C4D. x3 with formalin HEART, RIGHT VENTRICLE, ENDOMYOCARDIAL BIOPSY:MILD ACUTE CELLULAR REJECTION (ISHLT 1R)C4D IMMUNOFLUORESCENCE STAINING IS NEGATIVE (AMR 0) Preliminary result electronically signed by Clarence Murillo MD on 03/07/2017 at 10:21 AMThe preliminary results were reported to the heart transaction coordinator on 03/07/17 at 10:20 AM. The final results were reported to the heart transaction coordinator on 03/07/17 at 6:15 pm.[id number]; [id number] biopsyThe specimen is received in two containers both labeled "heart biopsy". Received in formalin are three fragments of red tissue measuring0.1 and 0.3 cm, submitted A1. Received in saline is a 0.3 cm fragment of troncoso-red soft tissue, submitted for frozen for immuno? ___ CG/plPerformed TACROLIMUS [id number] 14:45:00 Test Item Value Reference Range Interpretation Comments TACROLIMUS BLOOD (BEAKER) (test 10.6 ng/mL 10.0-20.0 code = 657) CBC W/PLT COUNT & AUTO [id number] 11:10:00 Test Item Value Reference Range Interpretation Comments WHITE BLOOD CELL COUNT (BEAKER) 2.7 K/ L 4.0-10.0 L (test code = 775) RED BLOOD CELL COUNT (BEAKER) 5.55 M/ L 4.20-5.80 (test code = 761) HEMOGLOBIN (BEAKER) (test code = 15.1 GM/DL 13.0-16.8 410) HEMATOCRIT (BEAKER) (test code = 47.4 % 40.0-50.0 411) MEAN CORPUSCULAR VOLUME (BEAKER) 85.5 fL 82.0-98.0 (test code = 753) MEAN CORPUSCULAR HEMOGLOBIN 27.2 pg 27.0-33.0 (BEAKER) (test code = 751) MEAN CORPUSCULAR HEMOGLOBIN CONC 31.9 GM/DL 32.0-36.0 L (BEAKER) (test code = 752) RED CELL DISTRIBUTION WIDTH 12.8 % 10.3-14.2 (BEAKER) (test code = 412) PLATELET COUNT (BEAKER) (test 218 K/CU MM 150-430 code = 756) MEAN PLATELET VOLUME (BEAKER) 7.7 fL 6.5-10.5 (test code = 754) NUCLEATED RED BLOOD CELLS 0 /100 WBC 0-0 (BEAKER) (test code = 413) NEUTROPHILS RELATIVE PERCENT 23 % (BEAKER) (test code = 429) LYMPHOCYTES RELATIVE PERCENT 62 % (BEAKER) (test code = 430) MONOCYTES RELATIVE PERCENT 12 % (BEAKER) (test code = 431) EOSINOPHILS RELATIVE PERCENT 1 % (BEAKER) (test code = 432) BASOPHILS RELATIVE PERCENT 2 % (BEAKER) (test code = 437) NEUTROPHILS ABSOLUTE COUNT 0.63 K/ L 1.80-8.00 L (BEAKER) (test code = 670) LYMPHOCYTES ABSOLUTE COUNT 1.66 K/ L 1.48-4.50 (BEAKER) (test code = 414) MONOCYTES ABSOLUTE COUNT (BEAKER) 0.31 K/ L 0.00-1.30 (test code = 415) EOSINOPHILS ABSOLUTE COUNT 0.04 K/ L 0.00-0.50 (BEAKER) (test code = 416) BASOPHILS ABSOLUTE COUNT (BEAKER) 0.05 K/ L 0.00-0.20 (test code = 417) 0.00(MANUAL DIFFERENTIAL)2017-03-06 11:10:00 Test Item Value Reference Range Interpretation Comments TOTAL COUNTED (BEAKER) (test code = 1351) WBC MORPHOLOGY (BEAKER) (test code = Normal 487) PLT MORPHOLOGY (BEAKER) (test code = Normal 486) RBC MORPHOLOGY (BEAKER) (test code = Normal 762) B-TYPE NATRIURETIC FACTOR (BNP)2017-03-06 09:09:00 Test Item Value Reference Range Interpretation Comments B-TYPE NATRIURETIC PEPTIDE (BEAKER) 31 pg/mL 0-100 (test code = 700) HEPATIC FUNCTION [id number] 08:54:00 Test Item Value Reference Range Interpretation Comments TOTAL PROTEIN (BEAKER) (test code = 7.8 gm/dL 6.0-8.3 770) ALBUMIN (BEAKER) (test code = 1145) 4.7 g/dL 3.5-5.0 BILIRUBIN TOTAL (BEAKER) (test code 2.3 mg/dL 0.2-1.2 H = 377) BILIRUBIN DIRECT (BEAKER) (test 0.7 mg/dL 0.1-0.5 H code = 706) ALKALINE PHOSPHATASE (BEAKER) (test 103 U/L 40-150 code = 346) AST (SGOT) (BEAKER) (test code = 360 U/L 5-34 H 353) ALT (SGPT) (BEAKER) (test code = 275 U/L 6-55 H 347) Specimen slightly ictericPOTASSIUM-STAT [id number] 08:44:00 Test Item Value Reference Range Interpretation Comments POTASSIUM (BEAKER) (test code = 3.6 meq/L 3.6-5.5 379) BASIC METABOLIC [id number] 08:32:00 Test Item Value Reference Range Interpretation Comments SODIUM (BEAKER) 142 meq/L 136-145 (test code = 381) POTASSIUM (BEAKER) 6.0 meq/L 3.5-5.1 HH (test code = 379) CHLORIDE (BEAKER) 110 meq/L 98-107 H (test code = 382) CO2 (BEAKER) (test 23 meq/L 22-29 code = 355) BLOOD UREA NITROGEN 12 mg/dL 7-21 (BEAKER) (test code = 354) CREATININE (BEAKER) 0.74 mg/dL 0.57-1.25 (test code = 358) GLUCOSE RANDOM 91 mg/dL 70-105 (BEAKER) (test code = 652) CALCIUM (BEAKER) 10.0 mg/dL 8.4-10.2 (test code = 697) EGFR (BEAKER) (test 130 mL/min/1.73 ESTIM ATED GFR IS code = 1092) sq m NOT ACCURATE CREATININE CLEARANCE IN PREDICTING GLOMERULAR FILTRATION RATE . ESTIMATED GFR I S NOT APPLICABLE FOR DIALYSIS PATIEN TS. [id number] 14:25:00 Test Item Value Reference Range Interpretation Comments MAGNESIUM (BEAKER) (test code = 1.8 mg/dL 1.6-2.6 627) TACROLIMUS [id number] 12:37:00 Test Item Value Reference Range Interpretation Comments TACROLIMUS BLOOD (BEAKER) (test 6.0 ng/mL 10.0-20.0 L code = 657) BASIC METABOLIC [id number] 10:15:00 Test Item Value Reference Range Interpretation Comments SODIUM (BEAKER) 141 meq/L 136-145 (test code = 381) POTASSIUM (BEAKER) 4.0 meq/L 3.5-5.1 (test code = 379) CHLORIDE (BEAKER) 108 meq/L 98-107 H (test code = 382) CO2 (BEAKER) (test 25 meq/L 22-29 code = 355) BLOOD UREA NITROGEN 10 mg/dL 7-21 (BEAKER) (test code = 354) CREATININE (BEAKER) 0.62 mg/dL 0.57-1.25 (test code = 358) GLUCOSE RANDOM 83 mg/dL 70-105 (BEAKER) (test code = 652) CALCIUM (BEAKER) 8.9 mg/dL 8.4-10.2 (test code = 697) EGFR (BEAKER) (test 159 mL/min/1.73 ESTIM ATED GFR IS code = 1092) sq m NOT ACCURATE CREATININE CLEARANCE IN PREDICTING GLOMERULAR FILTRATION RATE . ESTIMATED GFR I S NOT APPLICABLE FOR DIALYSIS PATIEN TS. Specimen slightly ictericLIPID [id number] 10:15:00 Test Item Value Reference Range Interpretation Comments TRIGLYCERIDES (BEAKER) (test code = 60 mg/dL 540) CHOLESTEROL (BEAKER) (test code = 137 mg/dL 631) HDL CHOLESTEROL (BEAKER) (test code 48 mg/dL = 976) LDL CHOLESTEROL CALCULATED (BEAKER) 77 mg/dL (test code = 633) Triglyceride Reference Range: Low Risk <150 Borderline 150-199 High Risk 200-499 Very High Risk >=500Cholesterol Reference Range: Low Risk <200 Borderline 200-239 High Risk >240HDL Cholesterol Reference Range: Low Risk >=60 High Risk <40LDL Cholesterol Reference Range: Optimal <100 Near Optimal 100-129 Borderline 130-159 High 160-189 Very High >=190 Specimen slightly ictericHEPATIC FUNCTION [id number] 10:15:00 Test Item Value Reference Range Interpretation Comments TOTAL PROTEIN (BEAKER) (test code = 7.1 gm/dL 6.0-8.3 770) ALBUMIN (BEAKER) (test code = 1145) 4.2 g/dL 3.5-5.0 BILIRUBIN TOTAL (BEAKER) (test code 2.3 mg/dL 0.2-1.2 H = 377) BILIRUBIN DIRECT (BEAKER) (test 0.7 mg/dL 0.1-0.5 H code = 706) ALKALINE PHOSPHATASE (BEAKER) (test 102 U/L 40-150 code = 346) AST (SGOT) (BEAKER) (test code = 328 U/L 5-34 H 353) ALT (SGPT) (BEAKER) (test code = 259 U/L 6-55 H 347) Specimen slightly ictericCBC W/PLT COUNT & AUTO [id number] 09:48:00 Test Item Value Reference Range Interpretation Comments WHITE BLOOD CELL COUNT (BEAKER) 5.2 K/ L 4.0-10.0 (test code = 775) RED BLOOD CELL COUNT (BEAKER) 4.66 M/ L 4.20-5.80 (test code = 761) HEMOGLOBIN (BEAKER) (test code = 13.2 GM/DL 13.0-16.8 410) HEMATOCRIT (BEAKER) (test code = 40.0 % 40.0-50.0 411) MEAN CORPUSCULAR VOLUME (BEAKER) 85.9 fL 82.0-98.0 (test code = 753) MEAN CORPUSCULAR HEMOGLOBIN 28.3 pg 27.0-33.0 (BEAKER) (test code = 751) MEAN CORPUSCULAR HEMOGLOBIN CONC 33.0 GM/DL 32.0-36.0 (BEAKER) (test code = 752) RED CELL DISTRIBUTION WIDTH 13.5 % 10.3-14.2 (BEAKER) (test code = 412) PLATELET COUNT (BEAKER) (test 162 K/CU MM 150-430 code = 756) MEAN PLATELET VOLUME (BEAKER) 8.2 fL 6.5-10.5 (test code = 754) NUCLEATED RED BLOOD CELLS 0 /100 WBC 0-0 (BEAKER) (test code = 413) NEUTROPHILS RELATIVE PERCENT 65 % (BEAKER) (test code = 429) LYMPHOCYTES RELATIVE PERCENT 24 % (BEAKER) (test code = 430) MONOCYTES RELATIVE PERCENT 9 % (BEAKER) (test code = 431) EOSINOPHILS RELATIVE PERCENT 2 % (BEAKER) (test code = 432) BASOPHILS RELATIVE PERCENT 0 % (BEAKER) (test code = 437) NEUTROPHILS ABSOLUTE COUNT 3.38 K/ L 1.80-8.00 (BEAKER) (test code = 670) LYMPHOCYTES ABSOLUTE COUNT 1.23 K/ L 1.48-4.50 L (BEAKER) (test code = 414) MONOCYTES ABSOLUTE COUNT (BEAKER) 0.50 K/ L 0.00-1.30 (test code = 415) EOSINOPHILS ABSOLUTE COUNT 0.13 K/ L 0.00-0.50 (BEAKER) (test code = 416) BASOPHILS ABSOLUTE COUNT (BEAKER) 0.00 K/ L 0.00-0.20 (test code = 417) 0.00TISSUE [id number] 15:45:00Surgical Pathology Report Case: [id number] Authorizing Provider: Saleem Donald MD Ordering Provider:Saleem Donald MD Ordering Location: [facility] [place] [facility] Collected: 01/23/2017 1325 Pathologist:Clarence Murillo MD Received: 01/23/2017 [id number] Specimen: Heart, 2nd specimen C4D in normal saline pt post heart transplant HEART, RIGHT VENTRICLE, ENDOMYOCARDIAL BIOPSY:MILD ACUTE CELLULAR REJECTION (ISHLT 1R)C40 IMMUNOFLUORESCENCE STAINING IS NEGATIVE (AMR 0) Signing Pathologist Direct Phone Line: [phone] preliminary results were reported to the heart transaction coordinator on 01/24/17 at 12:02PM. The final results were reported to the heart transaction coordinator on 01/24/17 at 3:44 PM.[id number]; [id number] post heart transplantHeart biopsyThe specimen is received in two containers both labeledwith the patient's information.Received in formalin are two brown fragments of troncoso-red soft tissue measuring 0.1 and 0.2 cm, submitted A1. Received in saline is a 0.3 cm fragment of troncoso-red soft tissue, submitted for frozen for immunofluorescence staining. CG/plPerformedSOUTHER[facility] ([facility] ONLY) 2017-01-23 08:21:00 Test Item Value Reference Range Interpretation Comments WHITE BLOOD CELL COUNT (BEAKER) 3.8 K/ L 4.0-10.0 L (test code = 775) RED BLOOD CELL COUNT (BEAKER) 4.75 M/ L 4.20-5.80 (test code = 761) HEMOGLOBIN (BEAKER) (test code = 13.8 GM/DL 13.0-16.8 410) HEMATOCRIT (BEAKER) (test code = 41.0 % 40.0-50.0 411) MEAN CORPUSCULAR VOLUME (BEAKER) 86.3 fL 82.0-98.0 (test code = 753) MEAN CORPUSCULAR HEMOGLOBIN 29.1 pg 27.0-33.0 (BEAKER) (test code = 751) MEAN CORPUSCULAR HEMOGLOBIN CONC 33.7 GM/DL 32.0-36.0 (BEAKER) (test code = 752) RED CELL DISTRIBUTION WIDTH 13.0 % 10.3-14.2 (BEAKER) (test code = 412) PLATELET COUNT (BEAKER) (test 169 K/CU MM 150-430 code = 756) MEAN PLATELET VOLUME (BEAKER) 8.1 fL 6.5-10.5 (test code = 754) NUCLEATED RED BLOOD CELLS 0 /100 WBC 0-0 (BEAKER) (test code = 413) 0.000.510.000.000.000.00B-TYPE NATRIURETIC FACTOR (BNP)2017-01-23 08:11:00 Test Item Value Reference Range Interpretation Comments B-TYPE NATRIURETIC PEPTIDE (BEAKER) 55 pg/mL 0-100 (test code = 700) BASIC METABOLIC [id number] 08:09:00 Test Item Value Reference Range Interpretation Comments SODIUM (BEAKER) 139 meq/L 136-145 (test code = 381) POTASSIUM (BEAKER) 4.1 meq/L 3.5-5.1 (test code = 379) CHLORIDE (BEAKER) 107 meq/L 98-107 (test code = 382) CO2 (BEAKER) (test 25 meq/L 22-29 code = 355) BLOOD UREA NITROGEN 9 mg/dL 7-21 (BEAKER) (test code = 354) CREATININE (BEAKER) 0.62 mg/dL 0.57-1.25 (test code = 358) GLUCOSE RANDOM 98 mg/dL 70-105 (BEAKER) (test code = 652) CALCIUM (BEAKER) 9.3 mg/dL 8.4-10.2 (test code = 697) EGFR (BEAKER) (test 159 mL/min/1.73 ESTIM ATED GFR IS code = 1092) sq m NOT ACCURATE CREATININE CLEARANCE IN PREDICTING GLOMERULAR FILTRATION RATE . ESTIMATED GFR I S NOT APPLICABLE FOR DIALYSIS PATIEN TS. Specimen slightly ictericHEPATIC FUNCTION [id number] 08:09:00 Test Item Value Reference Range Interpretation Comments TOTAL PROTEIN (BEAKER) (test code = 7.3 gm/dL 6.0-8.3 770) ALBUMIN (BEAKER) (test code = 1145) 4.4 g/dL 3.5-5.0 BILIRUBIN TOTAL (BEAKER) (test code 2.9 mg/dL 0.2-1.2 H = 377) BILIRUBIN DIRECT (BEAKER) (test 0.6 mg/dL 0.1-0.5 H code = 706) ALKALINE PHOSPHATASE (BEAKER) (test 106 U/L 40-150 code = 346) AST (SGOT) (BEAKER) (test code = 304 U/L 5-34 H 353) ALT (SGPT) (BEAKER) (test code = 229 U/L 6-55 H 347) Specimen slightly ictericCMV PCR, [id number] 14:12:00 Test Item Value Reference Range Interpretation Comments CMV VIRAL LOAD - Negative or below the NEGATIVE (BEAKER) (test linear range of the code = 2558) assay (<375 copies/mL) Cytomegalovirus (CMV) infection can cause significant disease in immunosuppressed patients. However,it is common for CMV to manifest as a limited infection which is of no clinical significance in immunosuppressed patients or in healthy individuals.Viral load measurements are helpful to identify clinical CMV infection and to guide the pre-emptive management of antiviral therapy. For treatment of CMV infection due to reactivation in transplant recipients, a threshold between 4,000 and 5,000 copies/mLis suggested. For treatment of primary CMV infection, a lower threshold can be used.CMV infection may also be monitored using weekly serial measurements. Serial measurements of CMV DNA viral load can be evaluated by identifying a 10-fold change, as well as assessing the CMV DNA viral load and the clinical context for each patient.The plasma CMV DNA viral load was detected using quantitative polymerase chain reaction and fluorescent monitoring of a specific hybridized probe. Genetic variation and other factors can affect the accuracy of nucleic acid testing. Therefore, the results should be interpreted in light of clinical data. A negative result may not exclude the presence of CMV disease.This test was developed and its performance characteristics determined by the [facility] Pathol ogy Department, Section of Molecular Pathology. It has not been cleared or approved by the U.S. Foodand Drug Administration (FDA), since FDA approval is not required for clinical use of the test. Validation was done as required by The Clinical Laboratory Improvement Amendments of 1988.TACROLIMUS LEVEL 2017-01-01 13:37:00 Test Item Value Reference Range Interpretation Comments TACROLIMUS BLOOD (BEAKER) (test 11.2 ng/mL 10.0-20.0 code = 657) CBC W/PLT COUNT & AUTO [id number] 11:11:00 Test Item Value Reference Range Interpretation Comments WHITE BLOOD CELL COUNT (BEAKER) 4.2 K/ L 4.0-10.0 (test code = 775) RED BLOOD CELL COUNT (BEAKER) 4.65 M/ L 4.20-5.80 (test code = 761) HEMOGLOBIN (BEAKER) (test code = 13.5 GM/DL 13.0-16.8 410) HEMATOCRIT (BEAKER) (test code = 39.9 % 40.0-50.0 L 411) MEAN CORPUSCULAR VOLUME (BEAKER) 85.8 fL 82.0-98.0 (test code = 753) MEAN CORPUSCULAR HEMOGLOBIN 28.9 pg 27.0-33.0 (BEAKER) (test code = 751) MEAN CORPUSCULAR HEMOGLOBIN CONC 33.7 GM/DL 32.0-36.0 (BEAKER) (test code = 752) RED CELL DISTRIBUTION WIDTH 13.1 % 10.3-14.2 (BEAKER) (test code = 412) PLATELET COUNT (BEAKER) (test 182 K/CU MM 150-430 code = 756) MEAN PLATELET VOLUME (BEAKER) 8.8 fL 6.5-10.5 (test code = 754) NUCLEATED RED BLOOD CELLS 0 /100 WBC 0-0 (BEAKER) (test code = 413) 0.000.530.000.000.000.00(MANUAL DIFFERENTIAL)2017-01-01 11:11:00 Test Item Value Reference Range Interpretation Comments NEUTROPHILS - REL (DIFF) (BEAKER) 64 % (test code = 1359) LYMPHOCYTES - REL (DIFF) (BEAKER) 19 % (test code = 1360) MONOCYTES - REL (DIFF) (BEAKER) 6 % (test code = 1361) EOSINOPHILS - REL (DIFF) (BEAKER) 1 % (test code = 1362) BASOPHILS - REL (DIFF) (BEAKER) 1 % (test code = 1363) METAMYELOCYTES-REL (DIFF) (BEAKER) 1 % 0-0 H (test code = 258) BANDS - REL (DIFF) (BEAKER) (test 8 % 0-10 code = 1348) NEUTROPHILS - ABS (DIFF) (BEAKER) 2.69 K/ L 1.80-8.00 (test code = 1365) LYMPHOCYTES - ABS (DIFF) (BEAKER) 0.80 K/ L 1.48-4.50 L (test code = 1366) MONOCYTES - ABS (DIFF) (BEAKER) 0.25 K/ L 0.00-1.30 (test code = 1367) EOSINOPHILS - ABS (DIFF) (BEAKER) 0.04 K/ L 0.00-0.50 (test code = 1368) BASOPHILS - ABS (DIFF) (BEAKER) 0.04 K/ L 0.00-0.20 (test code = 1369) METAMYELOCTYES - ABS (DIFF) 0.04 K/ L 0.00-0.00 H (BEAKER) (test code = 261) BANDS-ABS (DIFF) (BEAKER) (test 0.3 K/ L 0.0-0.8 code = 1349) TOTAL COUNTED (BEAKER) (test code = 100 1351) BANDS + SEGMENTED NEUTROPHILS 3.02 (BEAKER) (test code = 1352) WBC MORPHOLOGY (BEAKER) (test code Normal = 487) PLT MORPHOLOGY (BEAKER) (test code Normal = 486) RBC MORPHOLOGY (BEAKER) (test code Normal = 762) BASIC METABOLIC [id number] 09:25:00 Test Item Value Reference Range Interpretation Comments SODIUM (BEAKER) 140 meq/L 136-145 (test code = 381) POTASSIUM (BEAKER) 4.2 meq/L 3.5-5.1 (test code = 379) CHLORIDE (BEAKER) 108 meq/L 98-107 H (test code = 382) CO2 (BEAKER) (test 24 meq/L 22-29 code = 355) BLOOD UREA NITROGEN 10 mg/dL 7-21 (BEAKER) (test code = 354) CREATININE (BEAKER) 0.64 mg/dL 0.57-1.25 (test code = 358) GLUCOSE RANDOM 85 mg/dL 70-105 (BEAKER) (test code = 652) CALCIUM (BEAKER) 9.1 mg/dL 8.4-10.2 (test code = 697) EGFR (BEAKER) (test 154 mL/min/1.73 ESTIM ATED GFR IS code = 1092) sq m NOT ACCURATE CREATININE CLEARANCE IN PREDICTING GLOMERULAR FILTRATION RATE . ESTIMATED GFR I S NOT APPLICABLE FOR DIALYSIS PATIEN TS. Specimen slightly ictericTACROLIMUS [id number] 10:50:00 Test Item Value Reference Range Interpretation Comments TACROLIMUS BLOOD (BEAKER) (test 10.1 ng/mL 10.0-20.0 code = 657) B-TYPE NATRIURETIC FACTOR (BNP)2016-12-08 09:44:00 Test Item Value Reference Range Interpretation Comments B-TYPE NATRIURETIC PEPTIDE (BEAKER) 51 pg/mL 0-100 (test code = 700) BASIC METABOLIC [id number] 09:36:00 Test Item Value Reference Range Interpretation Comments SODIUM (BEAKER) 139 meq/L 136-145 (test code = 381) POTASSIUM (BEAKER) 4.6 meq/L 3.5-5.1 (test code = 379) CHLORIDE (BEAKER) 108 meq/L 98-107 H (test code = 382) CO2 (BEAKER) (test 23 meq/L 22-29 code = 355) BLOOD UREA NITROGEN 14 mg/dL 7-21 (BEAKER) (test code = 354) CREATININE (BEAKER) 0.65 mg/dL 0.57-1.25 (test code = 358) GLUCOSE RANDOM 90 mg/dL 70-105 (BEAKER) (test code = 652) CALCIUM (BEAKER) 9.2 mg/dL 8.4-10.2 (test code = 697) EGFR (BEAKER) (test 151 mL/min/1.73 ESTIM ATED GFR IS code = 1092) sq m NOT ACCURATE CREATININE CLEARANCE IN PREDICTING GLOMERULAR FILTRATION RATE . ESTIMATED GFR I S NOT APPLICABLE FOR DIALYSIS PATIEN TS. Specimen slightly ictericHEPATIC FUNCTION [id number] 09:36:00 Test Item Value Reference Range Interpretation Comments TOTAL PROTEIN (BEAKER) (test code = 7.1 gm/dL 6.0-8.3 770) ALBUMIN (BEAKER) (test code = 1145) 4.3 g/dL 3.5-5.0 BILIRUBIN TOTAL (BEAKER) (test code 1.9 mg/dL 0.2-1.2 H = 377) BILIRUBIN DIRECT (BEAKER) (test 0.7 mg/dL 0.1-0.5 H code = 706) ALKALINE PHOSPHATASE (BEAKER) (test 86 U/L 40-150 code = 346) AST (SGOT) (BEAKER) (test code = 282 U/L 5-34 H 353) ALT (SGPT) (BEAKER) (test code = 194 U/L 6-55 H 347) Specimen slightly ictericCBC W/PLT COUNT & AUTO [id number] 09:24:00 Test Item Value Reference Range Interpretation Comments WHITE BLOOD CELL COUNT (BEAKER) 4.2 K/ L 4.0-10.0 (test code = 775) RED BLOOD CELL COUNT (BEAKER) 4.40 M/ L 4.20-5.80 (test code = 761) HEMOGLOBIN (BEAKER) (test code = 12.8 GM/DL 13.0-16.8 L 410) HEMATOCRIT (BEAKER) (test code = 38.1 % 40.0-50.0 L 411) MEAN CORPUSCULAR VOLUME (BEAKER) 86.6 fL 82.0-98.0 (test code = 753) MEAN CORPUSCULAR HEMOGLOBIN 29.1 pg 27.0-33.0 (BEAKER) (test code = 751) MEAN CORPUSCULAR HEMOGLOBIN CONC 33.6 GM/DL 32.0-36.0 (BEAKER) (test code = 752) RED CELL DISTRIBUTION WIDTH 13.9 % 10.3-14.2 (BEAKER) (test code = 412) PLATELET COUNT (BEAKER) (test 168 K/CU MM 150-430 code = 756) MEAN PLATELET VOLUME (BEAKER) 8.5 fL 6.5-10.5 (test code = 754) NUCLEATED RED BLOOD CELLS 0 /100 WBC 0-0 (BEAKER) (test code = 413) NEUTROPHILS RELATIVE PERCENT 71 % (BEAKER) (test code = 429) LYMPHOCYTES RELATIVE PERCENT 26 % (BEAKER) (test code = 430) MONOCYTES RELATIVE PERCENT 1 % (BEAKER) (test code = 431) EOSINOPHILS RELATIVE PERCENT 1 % (BEAKER) (test code = 432) BASOPHILS RELATIVE PERCENT 1 % (BEAKER) (test code = 437) NEUTROPHILS ABSOLUTE COUNT 2.97 K/ L 1.80-8.00 (BEAKER) (test code = 670) LYMPHOCYTES ABSOLUTE COUNT 1.11 K/ L 1.48-4.50 L (BEAKER) (test code = 414) MONOCYTES ABSOLUTE COUNT (BEAKER) 0.06 K/ L 0.00-1.30 (test code = 415) EOSINOPHILS ABSOLUTE COUNT 0.03 K/ L 0.00-0.50 (BEAKER) (test code = 416) BASOPHILS ABSOLUTE COUNT (BEAKER) 0.04 K/ L 0.00-0.20 (test code = 417) 0.00PROTHROMBIN [id number] 09:19:00 Test Item Value Reference Range Interpretation Comments PROTIME (BEAKER) (test code = 14.4 seconds 11.7-14.7 759) INR (BEAKER) (test code = 370) 1.1 <=5.9 RECOMMENDED COUMADIN/WARFARIN INR THERAPY RANGESSTANDARD DOSE: 2.0 - 3.0 Includes: PROPHYLAXIS for venous thrombosis, systemic embolization; TREATMENT for venous thrombosis and/or pulmonary embolus.HIGH RISK: Target INR is 2.5-3.5 for patients with mechanical heart valves.Within 24 hours, if on Coumadin TACROLIMUS [id number] 11:19:00 Test Item Value Reference Range Interpretation Comments TACROLIMUS BLOOD (BEAKER) (test 12.2 ng/mL 10.0-20.0 code = 657) CBC W/PLT COUNT & AUTO [id number] 10:58:00 Test Item Value Reference Range Interpretation Comments WHITE BLOOD CELL COUNT (BEAKER) 4.3 K/ L 4.0-10.0 (test code = 775) RED BLOOD CELL COUNT (BEAKER) 4.62 M/ L 4.20-5.80 (test code = 761) HEMOGLOBIN (BEAKER) (test code = 13.3 GM/DL 13.0-16.8 410) HEMATOCRIT (BEAKER) (test code = 39.8 % 40.0-50.0 L 411) MEAN CORPUSCULAR VOLUME (BEAKER) 86.2 fL 82.0-98.0 (test code = 753) MEAN CORPUSCULAR HEMOGLOBIN 28.7 pg 27.0-33.0 (BEAKER) (test code = 751) MEAN CORPUSCULAR HEMOGLOBIN CONC 33.3 GM/DL 32.0-36.0 (BEAKER) (test code = 752) RED CELL DISTRIBUTION WIDTH 14.3 % 10.3-14.2 H (BEAKER) (test code = 412) PLATELET COUNT (BEAKER) (test 189 K/CU MM 150-430 code = 756) MEAN PLATELET VOLUME (BEAKER) 8.4 fL 6.5-10.5 (test code = 754) NUCLEATED RED BLOOD CELLS 0 /100 WBC 0-0 (BEAKER) (test code = 413) NEUTROPHILS RELATIVE PERCENT 61 % (BEAKER) (test code = 429) LYMPHOCYTES RELATIVE PERCENT 34 % (BEAKER) (test code = 430) MONOCYTES RELATIVE PERCENT 4 % (BEAKER) (test code = 431) EOSINOPHILS RELATIVE PERCENT 1 % (BEAKER) (test code = 432) BASOPHILS RELATIVE PERCENT 1 % (BEAKER) (test code = 437) NEUTROPHILS ABSOLUTE COUNT 2.60 K/ L 1.80-8.00 (BEAKER) (test code = 670) LYMPHOCYTES ABSOLUTE COUNT 1.44 K/ L 1.48-4.50 L (BEAKER) (test code = 414) MONOCYTES ABSOLUTE COUNT (BEAKER) 0.17 K/ L 0.00-1.30 (test code = 415) EOSINOPHILS ABSOLUTE COUNT 0.03 K/ L 0.00-0.50 (BEAKER) (test code = 416) BASOPHILS ABSOLUTE COUNT (BEAKER) 0.03 K/ L 0.00-0.20 (test code = 417) 0.000.900.000.000.000.000.000.00(MANUAL DIFFERENTIAL)2016-11-27 10:58:00 Test Item Value Reference Range Interpretation Comments TOTAL COUNTED (BEAKER) (test code = 1351) PLT MORPHOLOGY (BEAKER) (test code = Normal 486) RBC MORPHOLOGY (BEAKER) (test code = Normal 762) ATYPICAL LYMPHS(BEAKER) (test code = Present 5528) BASIC METABOLIC [id number] 08:38:00 Test Item Value Reference Range Interpretation Comments SODIUM (BEAKER) 140 meq/L 136-145 (test code = 381) POTASSIUM (BEAKER) 4.0 meq/L 3.5-5.1 (test code = 379) CHLORIDE (BEAKER) 108 meq/L 98-107 H (test code = 382) CO2 (BEAKER) (test 23 meq/L 22-29 code = 355) BLOOD UREA NITROGEN 15 mg/dL 7-21 (BEAKER) (test code = 354) CREATININE (BEAKER) 0.60 mg/dL 0.57-1.25 (test code = 358) GLUCOSE RANDOM 96 mg/dL 70-105 (BEAKER) (test code = 652) CALCIUM (BEAKER) 9.2 mg/dL 8.4-10.2 (test code = 697) EGFR (BEAKER) (test 166 mL/min/1.73 ESTIM ATED GFR IS code = 1092) sq m NOT ACCURATE CREATININE CLEARANCE IN PREDICTING GLOMERULAR FILTRATION RATE . ESTIMATED GFR I S NOT APPLICABLE FOR DIALYSIS PATIEN TS. Specimen slightly ictericHEPATIC FUNCTION [id number] 08:38:00 Test Item Value Reference Range Interpretation Comments TOTAL PROTEIN (BEAKER) (test code = 6.8 gm/dL 6.0-8.3 770) ALBUMIN (BEAKER) (test code = 1145) 4.4 g/dL 3.5-5.0 BILIRUBIN TOTAL (BEAKER) (test code 2.4 mg/dL 0.2-1.2 H = 377) BILIRUBIN DIRECT (BEAKER) (test 0.8 mg/dL 0.1-0.5 H code = 706) ALKALINE PHOSPHATASE (BEAKER) (test 83 U/L 40-150 code = 346) AST (SGOT) (BEAKER) (test code = 250 U/L 5-34 H 353) ALT (SGPT) (BEAKER) (test code = 182 U/L 6-55 H 347) Specimen slightly icteric
[2022-11-02] MEDS ORDERED: FAMOTIDINE 20 MG/2 ML VIAL IV ONE (10:49)
[2022-11-02 10:57] LABS: Absolute Lymphocytes (CBC) 1.4 K/uL (0.7-4.9); Hematocrit 46.2 % (39.6-49.0); Lymphocytes % 24.1 % (15.3-44.8); MCV 90.7 fL (80-100); MPV 9.8 fL (7.6-11.3)
[2022-11-02 11:25] LABS: Albumin 3.8 g/dL (3.4-5.0); Bilirubin Total 4.3 mg/dL (0.2-1.0); Potassium 3.9 mmol/L (3.5-5.1); Protein, Total 6.5 g/dL (6.4-8.2); Troponin High Sensitivity 39.2 pg/mL (<58.9)
--- NOTE | 2022-11-02 11:55 | RAD REPORT ---
EXAM DESCRIPTION: RAD - Chest Pa And Lat (2 Views) - 11/02/2022 11:32 am CLINICAL HISTORY: abdominal pain COMPARISON: None TECHNIQUE: Frontal and lateral views of the chest were obtained. FINDINGS: The lungs are normal volume. No peripheral mass or consolidation identifiable. Interstitia l markings are mildly prominent with baseline the patient unknown. Sternotomy wires are in place. Heart size normal range. There is some parenchymal stranding around ea ch hilum. Technologists notation indicates heart transplant. This could account for the stranding in the perihilar regions. No pleural effusion or pneumothorax seen. No acute bony finding noted. No aortic abnormality. IMPRESSION: No acute lung parenchymal process identified. The perihilar stranding and fullness of each hilum likely related to the provided history of heart tr ansplant.
--- NOTE | 2022-11-02 12:10 | RAD REPORT ---
EXAM DESCRIPTION: US - Abdomen Exam Limited - 11/02/2022 12:01 pm CLINICAL HISTORY: ABD PAIN COMPARISON: No comparisons FINDINGS: No gallstones or measurable quantity of sludge within the lumen of the gallbladder. Gallbl adder wall is thickened toes largest 7 mm. A discrete mass or polyp of the gallbladder wall is not id entified. There is small amount of pericholecystic fluid present. No common duct stone or biliary tree dilatation identified. IMPRESSION: Gallbladder wall thickening, pericholecystic fluid but no stones or sludge identified. No biliary tree abnormality. Acalculous cholecystitis is a possibility with these findings and needs to be correlated with clinica l and laboratory findings. Chronic gallbladder disease is possible as well.
--- NOTE | 2022-11-02 12:21 | ER ---
Nurse's Notes [facility] Name: Matt Khan Age: 32 yrs Sex: Male : 1990 Arrival Date: 11/02/2022 Time: 10:29 Bed 2 Private MD: Diagnosis: Cholecystitis, unspecified;Transaminitis;Upper abdominal pain, unspecified;Hyperbilirubinemia Presentation: 11/02 10:42 Chief complaint: Patient states: Upper abd pain for months, radiates into R leg. Some ll1 nausea and weakness. Coronavirus screen: Vaccine status: Patient reports receiving the 2nd dose of the covid vaccine. Client denies travel out of the [place] in the last 14 days. At this time, the client does not indicate any symptoms associated with coronavirus-19. Ebola Screen: Patient denies travel to an Ebola-affected area in the 21 days before illness onset. Initial Sepsis Screen: Does the patient meet any 2 criteria? HR > 90 bpm. No. Patient's initial sepsis screen is negative. Does the patient have a suspected source of infection? Yes: Acute abdominal pain. Risk Assessment: Do you want to hurt yourself or someone else? Patient reports no desire to harm self or others. Onset of symptoms was August 01, 2022. 10:42 Method Of Arrival: Ambulatory ll1 10:42 Acuity: BRUCE 3 ll1 Triage Assessment: 10:56 General: Appears in no apparent distress. Behavior is calm, cooperative. Pain: ap3 Complains of pain in chest Pain radiates to right leg Pain began gradually, over the last month. Neuro: Level of Consciousness is awake, alert, obeys commands, Oriented to person, place, time, situation, Moves all extremities. Speech is normal. Cardiovascular: pt hx of heart transplant. Rhythm is regular. Respiratory: Airway is patent Respiratory effort is even, unlabored, Respiratory pattern is regular, symmetrical. GI: Abdomen is flat, non-distended, Reports upper abdominal pain. Historical: - Allergies: 10:42 No Known Allergies; ll1 - PMHx: 10:42 Hypertensive disorder; ll1 - PSHx: 10:42 heart transplant; ll1 - Immunization history:: Client reports receiving the 2nd dose of the Covid vaccine. - Social history:: Smoking status: Patient denies any tobacco usage or history of. Screenin:[facility] Fall Risk Assessment (Adult) History of falling in the last 3 months, ap3 including since admission No falls in past 3 months (0 pts). Abuse screen: Denies threats or abuse. Nutritional screening: No deficits noted. Tuberculosis screening: No symptoms or risk factors identified. Assessment: 10:57 GI: Bowel sounds present X 4 quads. Abd is soft Abd is non tender. ap3 11:29 General: Dr. Matthews notified of critical lab values. AST 425 ALT 323. ss 16:19 General: Report called to Ashutosh at [facility]. ap3 Vital Signs: 10:42 BP 111 / 96; Pulse 104; Resp 17; Temp 98.0; Pulse Ox 100% ; Weight 52.16 kg; ll1 10:42 Height 5 ft. 9 in. (175.26 cm); Pain 8/10; ll1 11:46 BP 107 / 82; Pulse 99; Pulse Ox 99% on R/A; ap3 12:25 BP 98 / 77; Pulse 99; Pulse Ox 100% on R/A; ap3 14:09 BP 107 / 81; Pulse 99; Pulse Ox 100% on R/A; ap3 15:59 BP 102 / 74; Pulse 95; Resp 18; Temp 97.8; Pulse Ox 99% on R/A; ph ED Course: 10:29 Patient arrived in ED. as 10:31 Jarrell Matthews DO is Attending Physician. ms3 10:31 Arm band placed on Patient placed in an exam room, on a stretcher. ll1 10:43 Triage completed. ll1 10:55 Melida Helton, RN is Primary Nurse. ap3 10:57 Patient has correct armband on for positive identification. Bed in low position. Call ap3 light in reach. Side rails up X 1. environmental monitoring specialist on. Pulse ox on. NIBP on. Door closed. Noise minimized. 11:32 Chest Pa And Lat (2 Views) XRAY In Process Unspecified. EDMS 12:02 US Abdomen Limited In Process Unspecified. EDMS 12:23 ED physician to see patient. ap3 13:36 SARS RAPID Sent. ap3 16:20 No provider procedures requiring assistance completed. ap3 16:55 Patient transferred, IV remains in place. ap3 Administered Medications: 10:49 Drug: Pepcid (famotidine) 20 mg Route: IVP; Site: right antecubital; kc6 12:23 Follow up: Response: No adverse reaction ap3 13:36 Drug: Zosyn (piperacillin-tazobactam) 3.375 grams Route: IVPB; Infused Over: 60 mins; ap3 Site: right antecubital; 16:20 Follow up: IV Status: Completed infusion ap3 13:47 Drug: NS 0.9% 1000 ml Route: IV; Rate: 125 ml/hr; Site: right antecubital; ap3 16:55 Follow up: IV Status: Infusion continued upon transfer ap3 Medication: 10:57 VIS not applicable for this client. ap3 Outcome: 12:21 ER care complete, transfer ordered by MD. ms3 16:55 Transferred by ground EMS to [facility]. ap3 16:55 Condition: good 16:55 Instructed on the need for transfer. 17:06 Patient left the ED. kc6 Signatures: Dispatcher [employer] EDMS Lana Eubanks Shelby, LASHANDA RN Bijal Desir RN RN Melida Simmons RN RN ap3 Antione Gonzalez RN RN ll1 Jarrell Matthews DO DO ms3 Ama Hook, RN RN kc6
--- NOTE | 2022-11-02 12:22 | EDPHYS ---
Physician Documentation [facility] Name: Matt Khan Age: 32 yrs Sex: Male : 1990 Arrival Date: 11/02/2022 Time: 10:29 Bed 2 Private MD: ED Physician Jarrell Matthews HPI: 11/02 11:27 This 32 yrs old Male presents to ER via Ambulatory with complaints of ms3 Abdominal Pain, Leg Pain, Weakness. 11:27 32-year-old male with past medical history of hypertension status post heart transplant ms3 presents for upper abdominal pain that has been ongoing for months. Patient states the pain is an 8/10 and hurts. Patient states relaxing makes the pain better and walking makes the pain worse. Patient notes that the pain radiates down to his legs from his upper abdomen.. Historical: - Allergies: 10:42 No Known Allergies; ll1 - PMHx: 10:42 Hypertensive disorder; ll1 - PSHx: 10:42 heart transplant; ll1 - Immunization history:: Client reports receiving the 2nd dose of the Covid vaccine. - Social history:: Smoking status: Patient denies any tobacco usage or history of. ROS: 11:27 Constitutional: Negative for fever, and chills. Neck: Negative for injury, pain, and ms3 swelling, Cardiovascular: Negative for chest pain, and palpitations. Respiratory: Negative for shortness of breath, cough, wheezing, and pleuritic chest pain. 11:27 Skin: Negative for injury, rash, and discoloration. 11:27 Abdomen/GI: Positive for abdominal pain. 11:27 All other systems are negative. Exam: 10:45 ECG was reviewed by the Attending Physician. ms3 11:27 Constitutional: This is a well developed, well nourished patient who is awake, alert, ms3 and in no acute distress. Head/Face: Normocephalic, atraumatic. Neck: Trachea midline, no cervical lymphadenopathy. Supple, full range of motion without nuchal rigidity, or vertebral point tenderness. No Meningismus. Chest/axilla: Normal chest wall appearance and motion. Nontender with no deformity. Cardiovascular: Regular rate and rhythm with a normal S1 and S2. No gallops, murmurs, or rubs. Normal PMI, no JVD. No pulse deficits. Respiratory: Lungs have equal breath sounds bilaterally, clear to auscultation and percussion. No rales, rhonchi or wheezes noted. No increased work of breathing, no retractions or nasal flaring. Abdomen/GI: Soft, non-tender, with normal bowel sounds. No distension or tympany. No guarding or rebound. No evidence of tenderness throughout. Skin: Warm, dry with normal turgor. Normal color with no rashes, no lesions, and no evidence of cellulitis. MS/ Extremity: Pulses equal, no cyanosis. Neurovascular intact. Full, normal range of motion. Vital Signs: 10:42 BP 111 / 96; Pulse 104; Resp 17; Temp 98.0; Pulse Ox 100% ; Weight 52.16 kg; ll1 10:42 Height 5 ft. 9 in. (175.26 cm); Pain 8/10; ll1 11:46 BP 107 / 82; Pulse 99; Pulse Ox 99% on R/A; ap3 12:25 BP 98 / 77; Pulse 99; Pulse Ox 100% on R/A; ap3 14:09 BP 107 / 81; Pulse 99; Pulse Ox 100% on R/A; ap3 15:59 BP 102 / 74; Pulse 95; Resp 18; Temp 97.8; Pulse Ox 99% on R/A; ph MDM: 10:39 Patient medically screened. ms3 11:27 Differential diagnosis: Pancreatitis vs Gastritis vs abdominal pain vs ACS. ms3 12:18 ED course: Discussed case with Dr Eubanks and patient will need transfer.. ms3 13:40 ED course: Discussed case with Dr Hernandes and he accepts patient at [facility]. ms3 13:41 Data reviewed: vital signs, nurses notes, lab test result(s), EKG, radiologic studies, ms3 and as a result, I will transfer. Consideration of Admission/Observation Transferred to [facility]. Management of patient was discussed with the following: Hospitalist: Dr Hernandes. I considered the following discharge prescriptions or medication management in the emergency department Medications were administered in the Emergency Department. See MAR. Independent interpretation of the following test(s) in the Emergency Department EKG: See my EKG interpretation above compliance monitor: rate is 99 beats/min, Rhythm is normal sinus rhythm, regular, with no ectopy, Interpretation: normal rate, normal rhythm. Counseling: I had a detailed discussion with the patient and/or guardian regarding: the historical points, exam findings, and any diagnostic results supporting the discharge/admit diagnosis, lab results, radiology results, the need to transfer to another facility, for higher level of care. 11/02 10:40 Order name: CBC with Diff; Complete Time: 11:29 ms3 11/02 10:40 Order name: CMP; Complete Time: 11:29 ms3 11/02 10:40 Order name: Lipase; Complete Time: 11:29 ms3 11/02 10:40 Order name: Chest Pa And Lat (2 Views) XRAY; Complete Time: 12:12 ms3 11/02 10:40 Order name: Troponin High Sensitivity; Complete Time: 11:29 ms3 11/02 12:47 Order name: SARS RAPID; Complete Time: 14:07 ap3 11/02 10:40 Order name: IV Saline Lock; Complete Time: 10:49 ms3 11/02 10:40 Order name: Labs collected and sent; Complete Time: 10:49 ms3 11/02 10:40 Order name: EKG; Complete Time: 10:40 ms3 11/02 10:40 Order name: EKG - Nurse/Tech; Complete Time: 10:44 ms3 11/02 11:30 Order name: US Abdomen Limited; Complete Time: 12:12 ms3 11/02 10:40 Order name: Cardiac monitoring; Complete Time: 10:44 ms3 11/02 13:40 Order name: NPO; Complete Time: 13:47 ms3 EC:45 Rate is 100 beats/min. Rhythm is regular. Right axis deviation noted. [place] interval is ms3 normal. Clinical impression: NSR w/ Non-specific ST/T Changes. Interpreted by me. Reviewed by me. Administered Medications: 10:49 Drug: Pepcid (famotidine) 20 mg Route: IVP; Site: right antecubital; kc6 12:23 Follow up: Response: No adverse reaction ap3 13:36 Drug: Zosyn (piperacillin-tazobactam) 3.375 grams Route: IVPB; Infused Over: 60 mins; ap3 Site: right antecubital; 16:20 Follow up: IV Status: Completed infusion ap3 13:47 Drug: NS 0.9% 1000 ml Route: IV; Rate: 125 ml/hr; Site: right antecubital; ap3 16:55 Follow up: IV Status: Infusion continued upon transfer ap3 Disposition Summary: 11/02/22 12:21 Transfer Ordered Transfer Location: [facility] ms3 Reason: Higher level of care ms3 Condition: Stable ms3 Problem: new ms3 Symptoms: are unchanged ms3 Accepting Physician: (11/02/22 17:06) kc6 Diagnosis - Cholecystitis, unspecified ms3 - Transaminitis ms3 - Upper abdominal pain, unspecified ms3 - Hyperbilirubinemia ms3 Forms: - Medication Reconciliation Form ms3 - SBAR form ms3 Signatures: Dispatcher [employer] Melida Kirkland RN RN ap3 Antione Gonzalez RN RN ll1 Jarrell Matthews, DO ms3 Ama Hook RN RN kc6 Corrections: (The following items were deleted from the chart) 17:06 12:21 ms3 kc6
[2022-11-02] MEDS ORDERED: PIPERACIL/TAZO 3.375 GM VIAL IV ONE (13:30)
[2022-11-02] MEDS ORDERED: NA CHLORIDE 0.9% 100 ML ONE (13:30)
[2022-11-02 13:57] LABS: SARS-CoV-2 Antigen Rapid Res Negative (Negative)
[2022-11-02 17:15] VITALS: BP 102/74; TEMP 97.8; O2SAT 99
== END 2022-11-02 17:06 | disposition short-term general hospital (02) ==
LOC: ER 10:23
DX: K81.9 Cholecystitis, unspecified (principal); E80.6 Other disorders of bilirubin metabolism; R74.01 Elevation of levels of liver transaminase levels; I10 Essential (primary) hypertension; Z94.1 Heart transplant status; Z20.822 Contact with and (suspected) exposure to COVID-19
CPT/HCPCS: 96365; 96361; 93005; 85025; 36415; 84484; 83690; 80053; 71046; 76705; 96375; 99285; 96366; 87811; J2543